=== PATIENT | male | born 1940 | race Caucasian/White ===

== ENCOUNTER → 2021-07-29 14:39 | Outpatient (REF) | payer MEDICARE, SELFPAY ==
--- NOTE | 2021-07-29 15:00 | CA_ITS ---
Transthoracic Echocardiogram Patient (Last, First, Middle): Aden Mtz D Gender: Male Date of : 1940 Age: 80 Procedure Date: 07/29/2021 Procedure Type: Transthoracic Echocardiogram Location: OP Height: 175.26 cm Weight: 108.86 kg BSA: 2.23 m2 Heart Rate: bpm BP: 122 / 60 mmHg Wicker Worker: INO Garduno MD: Mary Jean CNP Slat Grader: Zachery Genao MD Symptoms: AFIB, SOB CHF Study Quality: Technically Difficult ECG Rhythm: Atrial Fibrillation Conclusions: - 1. Normal LV systolic function with normal filling pressures 2. Mild aortic regurgitation 3. Normal RV systolic pressure 4. No gross pericardial effusion Findings Left Ventricle Normal left ventricular size, thickness, and systolic function. The visually estimated ejection fraction is between 55-60%. Diastolic function is indeterminate on the basis of available data. Normal left ventricular filling pressures. Right Ventricle There is normal right ventricular systolic function. There is a pacemaker wire seen in the right ventricle. Atria The left atrium is likely dilated. Interatrial shunt cannot be excluded. The right atrium is normal in size. Aortic Valve The aortic valve structure and function is likely normal. There is no aortic valve stenosis. There is mild aortic valve regurgitation. Mitral Valve Likely normal mitral valve structure and function. There is trace mitral valve regurgitation. There is no mitral valve stenosis. Pulmonic Valve The pulmonic valve was not well visualized. Tricuspid Valve Likely normal tricuspid valve structure and function. There is mild tricuspid valve regurgitation. The right ventricular systolic pressure is normal. The right ventricular systolic pressure is 35 mmHg. Normal right atrial pressure. There is no evidence of pulmonary hypertension. Great Vessels All visible segments of the aorta are normal in size. The pulmonary artery was not well visualized. Venous The inferior vena cava is normal in size and collapses greater than 50% with inspiration. Pericardium/Pleural There is no evidence of pericardial effusion. Prior Study Comparison No prior study available for comparison. Measurements 2D Linear Measurements IVSd: 0.98 0.6-0.9/0.6-1.0 cm LVIDd: 4.73 3.9-5.3/4.2-5.9 cm LVIDd Index: 2.12 2.4-3.2/2.2-3.1 cm/m2 LVIDs: 2.77 2.0-3.6 cm LVPWd: 0.81 0.7-1.1 cm Ao Root: 3.60 2.1-3.5 cm LA Diam: 4.30 2.7-3.8/3.0-4.0 cm LAIDs Index: 1.93 1.5-2.3 cm/m2 LV Mass: 279.74 67-162/88-224 g LV Mass Index: 125.44 43-95/49-115 g/m2 LVOT Diam: 2.20 3.0+(-)1.3 cm Mitral Valve MV Pk E: 0.76 MV Decel Time: 147.00 E'Lateral: 10.00 E'Medial: 8.49 E/E' Med: 9.00 E/E' Lat: 7.60 PHT: 43.00 MVA PHT: 5.12 Decel Twiggs: 5.19 Aortic Valve AoV Pk Gilbert: 1.00 AoV Mn Gilbert: 0.64 AoV VTI: 0.20 AoV Pk Grad: 4.00 Aov Mn Grad: 2.00 RENETTA Cont.VTI: 2.46 LVOT LVOT Pk Gilbert: 0.46 LVOT Mn Gilbert: 0.32 LVOT VTI: 0.13 LVOT Pk Grad: 1.00 LVOT Mn Grad: 0.00 LVOT Diam: 2.20 LVOT Area: 3.80 Diastolic Function MV Pk E: 0.76 E'Medial: 8.49 E/E' Med: 9.00 E' Laterial: 10.00 E/E' Lat: 7.60 Tricuspid Valve TR Pk Gilbert: 2.82 TR Pk Grad: 32.00 RA Press: 3.00 RVSP: 35.00 Great Vessels Aorta Ao Root-2D: 3.60 2.0-3.7 cm Ao Asc: 3.50 2.1-3.4 cm Pulmonary Valve PV Pk Gilbert: 0.68 Peak PV Grad: 2.00 Updated in Other Vendor System with Status of Final Zachery Genao MD electronically signed on 07/30/2021 8:38:04 AM with status of Final
== END ==
LOC: HO.CARD 14:39
PROVIDERS: PCP Nurse Practitioner Primary Care; Visit Provider Nurse Practitioner Primary Care
DX: I48.91 Unspecified atrial fibrillation (principal); R06.02 Shortness of breath; I50.9 Heart failure, unspecified
CPT/HCPCS: 93306

== ENCOUNTER → 2021-11-04 14:08 | Outpatient (BNVA) | payer MEDICARE, SELFPAY | PROVIDERS: PCP Nurse Practitioner Primary Care; Referring Provider Nurse Practitioner Primary Care; Visit Provider Internal Medicine | DX: I48.19 Other persistent atrial fibrillation (principal); I10 Essential (primary) hypertension; Z95.0 Presence of cardiac pacemaker | CPT/HCPCS: 93005; 99202 ==

== ENCOUNTER 2021-11-12 14:45 | Outpatient (REF) | payer MEDICARE, SELFPAY ==
--- NOTE | ~2021-11-12 | US_ITS ---
EXAMINATION: ULTRASOUND EXTREMITY NONVASCULAR CLINICAL INFORMATION: Right flank lump COMPARISON: None. TECHNIQUE: Grayscale and color imaging of the soft tissues over the right flank using a linear transducer. FINDINGS: There is a defect in the posterior fascia and hypoechoic soft tissue suggestive of a hernia. This measures 2 cm. There is an adjacent small simple-appearing fluid collection that measures 1.8 x 0.5 x 2.2 cm. US/US extremity nonvascular IMPRESSION: Small 2 cm right flank hernia and adjacent simple fluid collection measuring 1.8 x 0.5 x 2.2 cm.
== END 2021-11-12 14:46 | disposition home or self-care (01) ==
LOC: HO.US 14:45
PROVIDERS: PCP Nurse Practitioner Primary Care; Visit Provider Nurse Practitioner Primary Care
DX: K46.9 Unspecified abdominal hernia without obstruction or gangrene (principal)
CPT/HCPCS: 76882

== ENCOUNTER → 2021-12-17 10:03 | Outpatient (BNVA) | payer MEDICARE, SELFPAY | PROVIDERS: PCP Nurse Practitioner Primary Care; Referring Provider Nurse Practitioner Primary Care; Visit Provider Surgery | DX: K91.89 Other postprocedural complications and disorders of digestive system (principal); K43.2 Incisional hernia without obstruction or gangrene | CPT/HCPCS: 99202 ==

== ENCOUNTER → 2021-12-28 14:31 | Outpatient (BNVA) | payer MEDICARE, SELFPAY | PROVIDERS: PCP Nurse Practitioner Primary Care; Referring Provider Nurse Practitioner Primary Care; Visit Provider Internal Medicine | DX: Z45.018 Encounter for adjustment and management of other part of cardiac pacemaker (principal); I48.19 Other persistent atrial fibrillation; I10 Essential (primary) hypertension; G47.33 Obstructive sleep apnea (adult) (pediatric); Z99.89 Dependence on other enabling machines and devices | CPT/HCPCS: 99212 ==

== ENCOUNTER 2021-12-30 14:31 | Outpatient (REF) | payer MEDICARE, SELFPAY ==
--- NOTE | ~2021-12-30 | CT_ITS ---
EXAMINATION: CT ABDOMEN AND PELVIS WITHOUT CONTRAST CLINICAL INFORMATION: K91.89: Other postprocedural complications and disorders. COMPARISON: None. TECHNIQUE: Multidetector volumetric imaging was performed from the superior aspect of the liver through the pubic symphysis. Sagittal and coronal reformatted images were obtained on the technologist's workstation. This CT examination was performed using dose optimization techniques as appropriate, variously including the following: *Automated exposure control *Adjustment of mA and/or kV according to patient size (this includes techniques or standardized protocols for targeted exams where dose is matched to indication/reason for exam; i.e. extremities or head) *Use of iterative reconstruction technique DLP: 813 mGy-cm FINDINGS: LUNG BASES: There is minimal compressive atelectasis both lung bases. There is solitary pacer electrode in the right ventricle. Heart size enlarged. LIVER, GALLBLADDER, AND BILIARY TREE: The liver is normal in size, shape, and attenuation. No focal hepatic lesion or biliary ductal dilatation is present. The gallbladder is unremarkable with no evidence of radiopaque gallstones, gallbladder wall thickening, or obvious pericholecystic inflammatory changes. PANCREAS: Unremarkable. SPLEEN: Unremarkable. ADRENAL GLANDS: Unremarkable. KIDNEYS AND URETERS: The kidneys are normal in size, shape, and attenuation. No hydronephrosis, hydroureter, or calculi seen. There is an exophytic 8 mm cyst lower pole right kidney. There is moderate bilateral perinephric stranding. BLADDER: Unremarkable. GASTROINTESTINAL TRACT: There is scattered stool, diverticula and gas seen in the colon without distention. The small bowel loops are normal caliber. Appendix is directed in cephalad direction but normal caliber. No inflammatory changes seen in the mesentery. No free air or free fluid. ABDOMINAL WALL: There is evidence of remote right lower quadrant colostomy scar with soft tissue density likely large scar or an old hematoma/seroma. There is no evidence of hiatal hernia. LYMPH NODES: Normal. VASCULAR: There is a dilated left common iliac vein. PELVIC VISCERA: Unremarkable. OSSEOUS STRUCTURES: There are degenerative disc changes throughout lumbar spine. A grade 1 anterolisthesis L4 over L5. Mild degenerative disc changes seen as well. There is moderate ventral spondylosis lower dorsal spine. Moderate facet arthropathy seen at night L5-S1, left L4-L5 and L3-L4 disc levels. CT/CT abdomen pelvis wo con IMPRESSION: No acute intraabdominal process seen. Remote right lower quadrant colostomy scar with soft tissue density in the right anterior abdominal wall likely old hematoma/seroma. Colonic diverticulosis. Exophytic cyst lower pole right kidney with bilateral perinephric stranding. No radiopaque calculi or hydronephrosis. Fleischner guidelines were followed.
== END 2021-12-30 14:32 | disposition home or self-care (01) ==
LOC: HO.CT 14:31
PROVIDERS: PCP Nurse Practitioner Primary Care; Visit Provider Surgery
DX: K91.89 Other postprocedural complications and disorders of digestive system (principal); K43.2 Incisional hernia without obstruction or gangrene
CPT/HCPCS: 74176

== ENCOUNTER → 2022-01-06 12:51 | Outpatient (BNVA) | payer MEDICARE, SELFPAY | PROVIDERS: PCP Nurse Practitioner Primary Care; Referring Provider Nurse Practitioner Primary Care; Visit Provider Surgery | DX: K91.89 Other postprocedural complications and disorders of digestive system (principal); K43.2 Incisional hernia without obstruction or gangrene | CPT/HCPCS: 99212 ==

== ENCOUNTER 2022-02-23 08:41 | Day surgery (SDC) | payer MEDICARE, SELFPAY ==
--- NOTE | 2022-02-15 | ECG_ITS ---
Test Reason : PREOP Blood Pressure : / mmHG Vent. Rate : 088 BPM Atrial Rate : 000 BPM P-R Int : 000 ms QRS Dur : 074 ms QT Int : 362 ms P-R-T Axes : 000 -01 002 degrees QTc Int : 438 ms Atrial fibrillation Low voltage QRS Abnormal ECG When compared with ECG of 03-FEB-2019 16:57, No significant change was found Referred By: Lizzy Echols Electronically Signed By:GRIS KEEN MD
[2022-02-15 12:16] VITALS: BP 176/88; PULSE 83; RESP 20; O2SAT 97; BMI 34.7
--- NOTE | 2022-02-15 12:30 | P.CONAN_ITS ---
Documented by User: Lizzy Echols NP 02/16/22 13:26 HPI - Anesthesia Eval Consult details Narrative: 81yo M for Hernia Repair Incisional with Mesh Optimized per cardiology Xarelto for afib Scotch x ~3 daily. Discussed periop risks r/t regular ETOH consumption. Encouraged gradual decrease preop. Pt and verbalized understanding. Bilateral hearing aides PMFSH Active Problems Active Problems: All Active Problems (Updated 02/12/22 @ 08:57 by Perlita Fontana RN) RAHEL on CPAP (Acute) Port-site hernia (Acute) Pacemaker (Acute) Essential hypertension (Acute) Persistent atrial fibrillation (Acute) Past Medical History Medical History Elevated cholesterol Essential hypertension Hx of skin cancer, basal cell On anticoagulant therapy On beta kelvin at home RAHEL on CPAP Pacemaker Persistent atrial fibrillation Port-site hernia Prostate cancer Family History Family History Mother HTN (hypertension) Diabetes Father Heart attack Brother Asthma Paternal Grandfather Cancer Family history of problems with anesthesia: No Surgical History Surgical History H/O prostatectomy History of left shoulder replacement History of removal of cyst Hx of colonoscopy Hx of tonsillectomy S/P placement of cardiac pacemaker History of Problems with Anesthesia: No Social History Social History Are you a primary acute care certified nursing assistant to a significant other at home: No Do you presently have visiting nurse or other home services: No Alcohol intake: current Alcohol intake frequency: other Patient Tobacco Use Status: Never used Tobacco Use of substances other than those prescribed or required for medical reasons: No Substance Use Type Other:: Drinks 4-5 Scotch daily Have you been hit, kicked, punched, or otherwise hurt by someone within the past year? If so, by whom?: No Are you DNR?: No Advance Directives: Yes Advance Directives Information Provided: No (Brought copy - Placed on chart) Advance Directives on File: Yes Advance Directives Date on File: 10/01/19 Recently lost weight without trying: No Eating poorly because of decreased appetite: No Nutrition Risks: No Nutritional Risk Poor oral hygiene: No (crowns) Narrative Narrative: Resolving URI. No fever. Negative COVID. No recent CP. Mild [place] with stairs. Meds Allergies Allergy/AdvReac Type Severity Reaction Status Date / Time No Known Allergies Allergy Verified 02/23/22 09:05 [No Known Allergies*] Home Medications Medication Instructions Recorded Confirmed Last Taken Type cholecalciferol (vitamin D3) 25 25 mcg PO DAILY 11/04/21 02/12/22 Unknown History mcg (1,000 unit) capsule losartan 50 mg tablet 50 mg PO DAILY 11/04/21 02/12/22 Unknown History metoprolol succinate 50 mg 50 mg PO DAILY 11/04/21 02/12/22 02/23/22 07:45 History tablet,extended release 24 hr omeprazole 20 mg capsule,delayed 20 mg PO DAILY 11/04/21 02/12/22 02/23/22 07:45 History release rivaroxaban 20 mg tablet (Xarelto) 20 mg PO DAILY 11/04/21 02/12/22 02/20/22 History simvastatin 20 mg tablet 20 mg PO BEDTIME 11/04/21 02/12/22 Unknown History furosemide 20 mg tablet 20 mg PO DAILY 12/28/21 02/12/22 Unknown History Exam Exam Date and Time: February 15, 2022 1230 Height,Weight and Vital Signs: Height 5 ft 9 in Weight 106.594 kg Last Vital Signs Pulse 83 02/15/22 12:16 Resp 20 02/15/22 12:16 BP 176/88 H 02/15/22 12:16 Pulse Ox 97 02/15/22 12:16 Pertinent Lab Results Pertinent Lab Results: Lab Results 02/15/22 02/15/22 Range/Units 12:57 12:57 WBC 5.0 (4.8-10.8) X10*3/uL RBC 4.75 (4.60-5.80) X10*6/uL Hgb 14.4 (14.0-18.0) g/dl Hct 44.4 (42.0-52.0) % MCV 93.5 (80.0-98.0) fL MCH 30.3 (27.0-33.0) pg MCHC 32.4 (31.0-36.0) g/dl RDW 13.2 (11.0-16.0) % Plt Count 238 (160-400) X10*3/uL MPV 9.9 (9.4-12.4) fL Absolute Nucleated RBC 0.000 (0.0-0.012) X10*3/uL Nucleated RBC % (auto) 0.0 (0.0-0.2) /100WBC Sodium 140 (135-145) mmol/L Potassium 4.8 (3.3-5.1) mmol/L Chloride 106 (96-108) mmol/L Carbon Dioxide 25 (22-29) mmol/L Anion Gap 14 (12-20) BUN 15 (9-16) mg/dL Creatinine 0.85 (0.5-1.4) mg/dL Estim Creat Clear Calc 83.3 Estimated GFR > 60 Random Glucose 100 (60-115) mg/dL Calcium 9.1 (8.4-10.2) mg/dL Narrative Narrative: EKG 01/2022 Vent. Rate : 088 BPM ? ? Atrial Rate : 000 BPM ?? P-R Int : 000 ms? QRS Dur : 074 ms ? ? QT Int : 362 ms ? ? ? P-R-T Axes : 000 -01 002 degrees ?? QTc Int : 438 ms ? Atrial fibrillation Low voltage QRS Abnormal ECG When compared with ECG of 03-FEB-2019 16:57, No significant change was found ECHO 07/2021 Conclusions: - 1. Normal LV systolic function with normal filling pressures ? 2. Mild aortic regurgitation ? 3. Normal RV systolic pressure ? 4. No gross pericardial effusion ? Cardiac Device Check 12/2021 Details: Pacemaker interrogated today.? Programmed in VVI mode at 60/Min.? Battery status more than 12 years.? Normal lead parameters.? Ventricular pacing about 11%.? 12 episodes of nonsustained VT appeared to be conducted atrial fibrillation episodes.? Overall, normal pacemaker function. Airway TM Dist: >3cm Neck ROM: Full Loose/Missing/Broken Teeth: No ([place] in left lower) Heart: RRR Lungs: CTAB Assessment and Plan Assessment Anesthesia Assessment: Anesthesia Plan Discussed, Smoking Cess. Discussed and PAT Visit Final Anesthetic Review Family History of Problems with Anesthesia: No History of Problems with Anesthesia: No Documented by User: Shahram Zhong MD 02/23/22 09:30 [facility] Past Medical History Medical History Elevated cholesterol Essential hypertension Hx of skin cancer, basal cell On anticoagulant therapy On beta kelvin at home RAHEL on CPAP Pacemaker Persistent atrial fibrillation Port-site hernia Prostate cancer Family History Family History Mother HTN (hypertension) Diabetes Father Heart attack Brother Asthma Paternal Grandfather Cancer Surgical History Surgical History H/O prostatectomy History of left shoulder replacement History of removal of cyst Hx of colonoscopy Hx of tonsillectomy S/P placement of cardiac pacemaker Social History Social History Are you a primary acute care certified nursing assistant to a significant other at home: No Do you presently have visiting nurse or other home services: No Alcohol intake: current Alcohol intake frequency: other Patient Tobacco Use Status: Never used Tobacco Use of substances other than those prescribed or required for medical reasons: No Substance Use Type Other:: Drinks 4-5 Scotch daily Have you been hit, kicked, punched, or otherwise hurt by someone within the past year? If so, by whom?: No Are you DNR?: No Advance Directives: Yes Advance Directives Information Provided: No (Brought copy - Placed on chart) Advance Directives on File: Yes Advance Directives Date on File: 10/01/19 Recently lost weight without trying: No Eating poorly because of decreased appetite: No Nutrition Risks: No Nutritional Risk Poor oral hygiene: No (crowns) Meds Allergies Allergy/AdvReac Type Severity Reaction Status Date / Time No Known Allergies Allergy Verified 02/23/22 09:05 [No Known Allergies*] Home Medications Medication Instructions Recorded Confirmed Last Taken Type cholecalciferol (vitamin D3) 25 25 mcg PO DAILY 11/04/21 02/12/22 Unknown History mcg (1,000 unit) capsule losartan 50 mg tablet 50 mg PO DAILY 11/04/21 02/12/22 Unknown History metoprolol succinate 50 mg 50 mg PO DAILY 11/04/21 02/12/22 02/23/22 07:45 History tablet,extended release 24 hr omeprazole 20 mg capsule,delayed 20 mg PO DAILY 11/04/21 02/12/22 02/23/22 07:45 History release rivaroxaban 20 mg tablet (Xarelto) 20 mg PO DAILY 11/04/21 02/12/22 02/20/22 History simvastatin 20 mg tablet 20 mg PO BEDTIME 11/04/21 02/12/22 Unknown History furosemide 20 mg tablet 20 mg PO DAILY 12/28/21 02/12/22 Unknown History Exam Airway Mallampati Class: III Assessment and Plan Final Anesthetic Review NPO: Yes ASA Class: III Final Preanesthetic Review: No Changes in Pt Med Stat, Meds/Allgs Chart Reviewed, Consent Obtained/Reviewed and Anes Risks/Benef Reviewed Patient Risk: Intermediate Procedure Risk: Intermediate Assessment/Block/Sedation in SS: Assess/Block/Sedation-SS Anesthetic Plan Anesthetic Plan: GA and Agree w/ Assess. and Plan Disposition: Standard PACU
[2022-02-15 13:40] LABS: Hematocrit 44.4 % (42.0-52.0); Hemoglobin 14.4 g/dl (14.0-18.0); Mean Corpuscular HGB Conc 32.4 g/dl (31.0-36.0); Mean Corpuscular Hemoglobin 30.3 pg (27.0-33.0); Mean Corpuscular Volume 93.5 fL (80.0-98.0); Mean Platelet Volume 9.9 fL (9.4-12.4); Platelet Count 238 X10*3/uL (160-400); Red Blood Count 4.75 X10*6/uL (4.60-5.80); Red Cell Distribution Width 13.2 % (11.0-16.0)
[2022-02-15 14:15] LABS: Anion Gap 14 (12-20); Blood Urea Nitrogen 15 mg/dL (9-16); Calcium 9.1 mg/dL (8.4-10.2); Carbon Dioxide 25 mmol/L (22-29); Chloride 106 mmol/L (96-108); Creatinine Clr Calc Pharmacy 83.3; Estimated Glomerular Filt Rate > 60; Glucose Random 100 mg/dL (60-115); Potassium 4.8 mmol/L (3.3-5.1); Sodium 140 mmol/L (135-145)
[2022-02-23 09:23] VITALS: BP 153/81; PULSE 94; RESP 18; TEMP 36.4; O2SAT 96
--- NOTE | 2022-02-23 09:37 | MHC.SHP ---
Pre-Procedural Eval Section A Date of Service: 02/23/22 Section B Chief Complaint: Port-Site Hernia Details of Present Illness: Has a reducible mass on the right side of the abdomen on a previous port site consistent with incisional hernia Relevant Family History (Specify if Yes): No Relevant Social History: None Present Medications: see Short Stay Collaborative assessment Medical History: Significant History (Atrial fibrillation, pacemaker in place, on anticoagulation, hypertension) History of Previous Operations: Relevant previous surgery/procedure and date(s) (Robotic prostatectomy) Allergies: Allergies Allergy/AdvReac Type Severity Reaction Status Date / Time No Known Allergies Allergy Verified 02/23/22 09:05 [No Known Allergies*] Review of Systems Sugical H&P ROS: Negative: Constitution, Cardiovascular, Respiratory, Neurological, Psychiatric, Hem-Onc, Allergic/Immunologic, Gastrointestinal, Genitourinary, Musculoskeletal, Integumentary, Endocrine and Eyes/Ears/Nose/Throat Exam Surgical H&P Exam: Normal: HEENT, Normal: Lungs, Normal: Extremities, Normal: Skin and Normal: Neurological and Significant Findings: Heart (Regular rhythm) and Significant Findings: Abdomen (Reducible mass, right side of the abdomen on a previous port site) Plan Diagnosis/Plan: Unchanged I have reviewed the history and physical and performed a pertinent physical examination on my patient. No changes have occurred unless specified.
--- NOTE | 2022-02-23 10:52 | P.OP_ITS ---
Operative Note Operative Note Date of Service: 02/23/22 Narrative: Preop diagnosis: Incisional hernia, from port site Postop diagnosis: Incisional hernia, from port site Procedure: Repair of an incisional hernia with small-sized Ventralex mesh, with extensive lysis of adhesions Surgeon: Mateusz Caballero MD faculty i on call medical assistant: JUANA Santana The patient is an 81-year-old male previous undergone robotic prostatectomy and had developed a hernia on port site on the right side laterally. This had been bothering him as this would protrude markedly with activity. He said that despite his age, he remains very active. He wanted to proceed with repair. He understood technique of repair with mesh. He was aware of the risks, benefits, and alternatives. I reviewed his CAT scan with the radiologist and this had shown small defect right side laterally consistent with a port site hernia. The patient was brought to the operating room. He was placed supine under general anesthesia via endotracheal tube. The abdomen is prepped and draped in the usual sterile fashion. A surgical time-out was done. The patient received cefazolin 2 g IV preoperatively. The port site hernias palpable laterally on the right side just above the level umbilicus. I infiltrated this area with lidocaine 1%. I then made an incision transversely Tolliver blade 15. This carried down through the full-thickness skin and subcutaneous fat. Continued to dissect with Metzenbaum scissors through the subcutaneous fat until I was able to visualize a hernia sac. This was sharply dissected off the rest of the subcutaneous layer Metzenbaum scissors. We continued to and this hernia all the way down to the level of the aponeurosis. I continued to dissect the sac off of the rest of the fascial defect using Metzenbaum scissors as well as with fine dissection with the clamp. I was eventually able to define the fascial defect. This was about a 1.5 cm defect. The contents consisted of omental fat. However, a lot of this was tethered to the fascial defect with thin fibrous tissue. I had to do a lot of gentle dissection using the Metzenbaum scissors as well as with the right angle clamp to separate this entire hernia off of the of the defect. This allowed us to eventually apply Dennise clamps on the fascial edge to pull this up. I was able to visualize through the well defect. I could see small bowel loops which did not appear to be tethered at all to the show of the fascia. There was note of good margins surrounding the fascial defect. I therefore positioned a small- sized Ventralex mesh in flattened this to cover the entire defect. I secured the Prolene straps on the mesh to the fascial edge both sides and I trimmed the straps flush on the level of the fascia. I closed the fascia with a [id number] in 1 stitch. I irrigated. I appose the subcutaneous layer with Dexon 3-0 interrupted sutures. Skin closure was achieved with Dexon 4-0 subcuticular running stitch. The incision was infiltrated with Marcaine 0.5% for postop analgesia. Dressings were applied. The procedure was completed The patient tolerated procedure well. There were no complications noted. Initial and final counts of sponges and instruments were correct. Estimated blood loss was about 20 cc. The patient was extubated without difficulty and transferred to the recovery room with stable vital signs.
[2022-02-23 11:04] VITALS: BP 123/71; PULSE 100; RESP 15; TEMP 37.3; O2SAT 99
[2022-02-23 11:10] VITALS: BP 131/63; PULSE 100; RESP 20; O2SAT 97
[2022-02-23 11:15] VITALS: BP 125/69; PULSE 84; RESP 18; O2SAT 98
[2022-02-23 11:20] VITALS: BP 124/61; PULSE 88; RESP 17; O2SAT 98
[2022-02-23 11:34] VITALS: BP 132/69; PULSE 91; RESP 20; TEMP 36.8; O2SAT 95
== END 2022-02-23 12:21 | disposition home or self-care (01) ==
PROVIDERS: Nurse Practitioner; PCP Nurse Practitioner Primary Care; Visit Provider Surgery
PROC: (CPT 49560; principal; 2022-02-23 10:10)
DX: K91.89 Other postprocedural complications and disorders of digestive system (principal); K43.2 Incisional hernia without obstruction or gangrene; K66.0 Peritoneal adhesions (postprocedural) (postinfection); I10 Essential (primary) hypertension; E78.00 Pure hypercholesterolemia, unspecified; I48.19 Other persistent atrial fibrillation; Z79.01 Long term (current) use of anticoagulants; Z95.0 Presence of cardiac pacemaker; G47.33 Obstructive sleep apnea (adult) (pediatric); Z99.89 Dependence on other enabling machines and devices; Z79.899 Other long term (current) drug therapy; Z85.46 Personal history of malignant neoplasm of prostate; Z85.828 Personal history of other malignant neoplasm of skin
CPT/HCPCS: 49560; 49568; 36415; 80048; 85027; 93005; C1781; J0690; J1170; J2405; J3010

== ENCOUNTER → 2022-03-08 11:30 | Outpatient (BNVA) | payer MEDICARE, SELFPAY | PROVIDERS: PCP Nurse Practitioner Primary Care; Referring Provider Nurse Practitioner Primary Care; Visit Provider Surgery | DX: Z48.815 Encounter for surgical aftercare following surgery on the digestive system (principal); Z87.19 Personal history of other diseases of the digestive system | CPT/HCPCS: 99212 ==

== ENCOUNTER → 2022-06-23 12:36 | Outpatient (BNVA) | payer MEDICARE, SELFPAY | PROVIDERS: PCP Nurse Practitioner Primary Care; Referring Provider Nurse Practitioner Primary Care; Visit Provider Internal Medicine | DX: I48.19 Other persistent atrial fibrillation (principal); I10 Essential (primary) hypertension; G47.33 Obstructive sleep apnea (adult) (pediatric); Z95.0 Presence of cardiac pacemaker; Z99.89 Dependence on other enabling machines and devices | CPT/HCPCS: 99212 ==

== ENCOUNTER → 2022-12-27 12:56 | Outpatient (BNVA) | payer MEDICARE, SELFPAY | PROVIDERS: PCP Nurse Practitioner Primary Care; Referring Provider Nurse Practitioner Primary Care; Visit Provider Internal Medicine | DX: Z01.810 Encounter for preprocedural cardiovascular examination (principal); Z45.018 Encounter for adjustment and management of other part of cardiac pacemaker; I48.19 Other persistent atrial fibrillation; I10 Essential (primary) hypertension; G47.33 Obstructive sleep apnea (adult) (pediatric); F10.20 Alcohol dependence, uncomplicated; Z99.89 Dependence on other enabling machines and devices | CPT/HCPCS: 93005; 99212 ==

== ENCOUNTER → 2023-08-07 23:59 | Outpatient (BNV) | payer MEDICARE, SELFPAY ==
--- NOTE | 2023-08-14 10:28 | MHC.OFFVIS ---
Intake Intake Visit Reasons: Remote device check- [employer] Allergies No Known Allergies [No Known Allergies*] Allergy (Verified 12/27/22 13:36) PFSH Medical History Elevated cholesterol Essential hypertension Hx of skin cancer, basal cell On anticoagulant therapy On beta kelvin at home RAHEL on CPAP Pacemaker Persistent atrial fibrillation Port-site hernia Prostate cancer Surgical History H/O prostatectomy History of incisional hernia repair History of left shoulder replacement History of removal of cyst Hx of colonoscopy Hx of tonsillectomy S/P placement of cardiac pacemaker Family History Mother HTN (hypertension) Diabetes Father Heart attack Brother Asthma Paternal Grandfather Cancer Social History Are you a primary child care lead teacher to a significant other at home: No Do you presently have visiting nurse or other home services: No Alcohol intake: current Alcohol intake frequency: other Patient Tobacco Use Status: Never used Tobacco Advance Directives Date on File: 10/01/19 Office Procedures Cardiac Device Check Cardiac Device Check Details: Date of service- 08/07/2023 ; Battery life 11 years; normal lead parameters; CHIEF RELAY TESTER 11.5%; rare/transient rapid rates from atrial fibrillation. Otherwise, no significant arrhythmias. Overall normal device function. [id number] Cardiac Device Interrogation, pacemaker Procedure code (CPT) selection complete Assessment & Plan Assessment & Plan (1) Persistent atrial fibrillation: Code(s): I48.19 - Other persistent atrial fibrillation Coding Level of Care Code Procedure Only Diagnoses Persistent atrial fibrillation I48.19 CPT Codes Cardiac Device Check - Cardiac Device 12: [id number] Cardiac Device Interrogation, pacemaker ([id number])
== END ==
PROVIDERS: PCP Nurse Practitioner Primary Care; Visit Provider Internal Medicine
DX: I48.19 Other persistent atrial fibrillation (principal); Z95.0 Presence of cardiac pacemaker
CPT/HCPCS: 93294

== ENCOUNTER → 2023-11-06 23:59 | Outpatient (BNV) | payer MEDICARE, SELFPAY ==
--- NOTE | 2023-11-14 13:11 | MHC.OFFVIS ---
Intake Intake Visit Reasons: Remote Device Check- [employer] Allergies No Known Allergies [No Known Allergies*] Allergy (Verified 12/27/22 13:36) PFSH Medical History Elevated cholesterol Essential hypertension Hx of skin cancer, basal cell On anticoagulant therapy On beta kelvin at home RAHEL on CPAP Pacemaker Persistent atrial fibrillation Port-site hernia Prostate cancer Surgical History H/O prostatectomy History of incisional hernia repair History of left shoulder replacement History of removal of cyst Hx of colonoscopy Hx of tonsillectomy S/P placement of cardiac pacemaker Family History Mother HTN (hypertension) Diabetes Father Heart attack Brother Asthma Paternal Grandfather Cancer Social History Are you a primary customer care assistant to a significant other at home: No Do you presently have visiting nurse or other home services: No Alcohol intake: current Alcohol intake frequency: other Patient Tobacco Use Status: Never used Tobacco Advance Directives Date on File: 10/01/19 Office Procedures Cardiac Device Check Cardiac Device Check Details: Date of service- 11/06/2023 ; Battery life >10 years; normal lead parameters; SHIPPING TECHNICIAN 11.5%; VT episodes in the monitoring zone are likely atrial fibrillation episodes. Overall normal device function. [id number] Cardiac Device Interrogation, pacemaker Procedure code (CPT) selection complete Assessment & Plan Assessment & Plan (1) Persistent atrial fibrillation: Code(s): I48.19 - Other persistent atrial fibrillation Plan x Coding Level of Care Code Procedure Only Diagnoses Persistent atrial fibrillation I48.19 CPT Codes Cardiac Device Check - Cardiac Device 12: [id number] Cardiac Device Interrogation, pacemaker ([id number])
== END ==
PROVIDERS: PCP Nurse Practitioner Primary Care; Visit Provider Internal Medicine
DX: I48.19 Other persistent atrial fibrillation (principal); Z95.0 Presence of cardiac pacemaker
CPT/HCPCS: 93294

== ENCOUNTER 2023-12-26 11:51 | Outpatient (AMB) | payer MEDICARE, SELFPAY ==
[2023-12-26 12:36] VITALS: BP 110/62; PULSE 68; BMI 33.5
--- NOTE | 2023-12-26 12:36 | MHC.OFFVIS ---
Intake Vital Signs 12/26/23 12:36 Height 5 ft 9 in Weight 227 lb 1.218 oz BMI 33.5 BP 110/62 Blood Pressure Location Lt brachial Position Sitting Pulse 68 Intake Visit Reasons: 1 YR FOLLOW UP WITH [employer] Intake Note: 1 year follow up w/ EKG Communication Arts Lecturer Required: No Accompanied by: Spouse Allergies No Known Allergies [No Known Allergies*] Allergy (Verified 12/26/23 12:51) Medication List - Last Reconciled 12/26/23 by Eb Gutierres MD cholecalciferol (vitamin D3) 25 mcg PO DAILY furosemide 20 mg PO DAILY losartan 50 mg PO DAILY metoprolol succinate ER 50 mg PO DAILY omeprazole 20 mg PO DAILY rivaroxaban (Xarelto) 20 mg PO DAILY simvastatin 20 mg PO BEDTIME HPI HPI Comments History of Present Illness Details Aden returns for follow-up. Switched from [facility] due to intermediate. He has a history of persistent atrial fibrillation. Used to be paroxysmal in the past but apparently has been persistent for quite some time now. He was admitted with a syncopal episode in 2019. At that time, his implantable loop recorder had shown a 5.2 second pause. Following this, he underwent permanent pacemaker placement. In the last year or so, he is doing fine. States he is not had any alcohol recently. 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 No cardiac symptoms. [facility] Medical History Elevated cholesterol Essential hypertension Hx of skin cancer, basal cell On anticoagulant therapy On beta kelvin at home RAHEL on CPAP Pacemaker Persistent atrial fibrillation Port-site hernia Prostate cancer Surgical History H/O prostatectomy History of incisional hernia repair History of left shoulder replacement History of removal of cyst Hx of colonoscopy Hx of tonsillectomy S/P placement of cardiac pacemaker Family History Mother HTN (hypertension) Diabetes Father Heart attack Brother Asthma Paternal Grandfather Cancer Social History Are you a primary youth care specialist to a significant other at home: No Do you presently have visiting nurse or other home services: No Alcohol intake: current Alcohol intake frequency: other Patient Tobacco Use Status: Never used Tobacco Advance Directives Date on File: 10/01/19 Review of Systems Const Denies weakness ENT Denies dizziness Card Denies chest pain, Denies chest pain with activity, Denies syncope, Denies rapid heart rate, Denies pedal edema, Denies edema, Denies leg edema, Denies lightheadedness, Denies palpitations, Denies dyspnea, Denies dyspnea on exertion and Denies orthopnea Resp Denies cough, Denies dyspnea and Denies dyspnea on exertion GI Denies hematochezia and Denies change in stool character Musc Denies abnormal gait, Denies muscle cramps, Denies muscle weakness, Denies numbness, Denies radiating pain into limb and Denies tingling Neuro Denies abnormal gait, Denies dizziness, Denies syncope, Denies numbness, Denies tingling and Denies weakness Endo Denies palpitations Physical Exam Vital Signs: Last Vital Signs Pulse 68 12/26/23 12:36 BP 110/62 12/26/23 12:36 BMI result Body Mass Index 33.5 Const General: comfortable and no acute distress Orientation/consciousness: patient oriented x3 HEENT Other: Unremarkable Head: Yes normal to inspection Neck Neck: Yes normal visual inspection Chest Chest palpation & inspection: normal inspection of the chest Resp Auscultation: clear to auscultation bilaterally Cardio Palpation: normal PMI Heart sounds: S1 normal heart sound present, S2 normal heart sound present, no gallops, no murmurs and no rubs GI Palpation (GI): Soft to palpation Back/Spine/Pelvis Other: unremarkable Skin General skin exam: no rashes or lesions noted Neuro General: patient oriented x3 Extrem General: Yes normal to inspection Psych Mental Status: mental status grossly normal Office Procedures Cardiac Device Check Cardiac Device Check Details: Single-chamber device, programmed VVI. Battery status more than 10 years. Normal lead parameters. Total ventricular pacing 13.7%. Overall, normal device function. [id number] Cardiac Device Check, leadless/single lead pacemaker Procedure code (CPT) selection complete EKG Details: EKG with atrial fibrillation at a rate of 68/Min; PVCs versus aberrant conduction. Low voltage QRS complexes. [id number], Complete Assessment & Plan Assessment & Plan (1) Persistent atrial fibrillation: Code(s): I48.19 - Other persistent atrial fibrillation Plan: Continue metoprolol and Xarelto. Will request PCP labs. (2) Essential hypertension: Code(s): I10 - Essential (primary) hypertension Plan: Continue losartan. Normal blood pressure today. (3) Pacemaker: Code(s): Z95.0 - Presence of cardiac pacemaker Plan: Normally functioning on checking today. Can be followed remotely. (4) RAHEL on CPAP: Code(s): G47.33 - Obstructive sleep apnea (adult) (pediatric); Z99.89 - Dependence on other enabling machines and devices Plan: Continue CPAP. (5) Alcohol use disorder: Code(s): F10.90 - Alcohol use, unspecified, uncomplicated Plan: He was drinking a lot of alcohol but he states he stopped about 3 months ago. Hopefully, he can stay this way. Coding Level of Care Code Est Pt Level 4 (11661) Diagnoses Persistent atrial fibrillation I48.19 Essential hypertension I10 Pacemaker Z95.0 RAHEL on CPAP G47.33; Z99.89 Alcohol use disorder F10.90 CPT Codes Cardiac Device Check - Cardiac Device 1: 93053-BF Cardiac Device Check, leadless/single lead pacemaker ([id number]) EKG - CPT: 85314-Vhlmejwsoczohykqe, Complete ([id number])
== END 2023-12-26 13:13 | disposition home or self-care (01) ==
PROVIDERS: PCP Nurse Practitioner Primary Care; Visit Provider Internal Medicine
DX: I48.19 Other persistent atrial fibrillation (principal); I10 Essential (primary) hypertension; Z95.0 Presence of cardiac pacemaker; G47.33 Obstructive sleep apnea (adult) (pediatric); Z99.89 Dependence on other enabling machines and devices
CPT/HCPCS: 93279; 99214

== ENCOUNTER → 2023-12-26 11:51 | Outpatient (BNVA) | payer MEDICARE, SELFPAY | PROVIDERS: PCP Nurse Practitioner Primary Care; Visit Provider Internal Medicine | DX: Z45.018 Encounter for adjustment and management of other part of cardiac pacemaker (principal); I48.19 Other persistent atrial fibrillation; I10 Essential (primary) hypertension; F10.90 Alcohol use, unspecified, uncomplicated; G47.33 Obstructive sleep apnea (adult) (pediatric); Z99.89 Dependence on other enabling machines and devices | CPT/HCPCS: 93005; 99212 ==

== ENCOUNTER 2023-12-30 07:52 | Outpatient (REF) | payer MEDICARE, SELFPAY ==
[2023-12-30 09:21] LABS: Anion Gap 13 (12-20); Blood Urea Nitrogen 15 mg/dL (9-16); Calcium 9.7 mg/dL (8.4-10.2); Carbon Dioxide 29 mmol/L (22-29); Chloride 104 mmol/L (96-108); Estimated Glomerular Filt Rate > 60; Glucose Random 108 mg/dL (60-115); Sodium 141 mmol/L (135-145)
== END 2023-12-30 07:53 | disposition home or self-care (01) ==
LOC: HO.LAB 07:52
PROVIDERS: PCP Nurse Practitioner Primary Care; Visit Provider Internal Medicine
DX: I48.19 Other persistent atrial fibrillation (principal); K91.89 Other postprocedural complications and disorders of digestive system; K43.2 Incisional hernia without obstruction or gangrene
CPT/HCPCS: 36415; 80048

== ENCOUNTER → 2024-02-04 23:59 | Outpatient (BNV) | payer MEDICARE, SELFPAY ==
--- NOTE | 2024-02-07 19:28 | A.OFFVIS_ITS ---
Intake Intake Visit Reasons: Remote Device Check- [employer] Allergies No Known Allergies [No Known Allergies*] Allergy (Verified 12/26/23 12:51) PFSH Medical History Elevated cholesterol Essential hypertension Hx of skin cancer, basal cell On anticoagulant therapy On beta kelvin at home RAHEL on CPAP Pacemaker Persistent atrial fibrillation Port-site hernia Prostate cancer Surgical History H/O prostatectomy History of incisional hernia repair History of left shoulder replacement History of removal of cyst Hx of colonoscopy Hx of tonsillectomy S/P placement of cardiac pacemaker Family History Mother HTN (hypertension) Diabetes Father Heart attack Brother Asthma Paternal Grandfather Cancer Social History Are you a primary point of care specialist to a significant other at home: No Do you presently have visiting nurse or other home services: No Alcohol intake: current Alcohol intake frequency: other Patient Tobacco Use Status: Never used Tobacco Advance Directives Date on File: 10/01/19 Office Procedures Cardiac Device Check Cardiac Device Check Details: Date of service- 02/04/2024 ; Battery life >10 years; normal lead parameters; THORACIC MEDICINE PHYSICIAN 26%; no significant arrhythmias. Overall normal device function. [id number] Cardiac Device Interrogation, pacemaker Procedure code (CPT) selection complete Assessment & Plan Assessment & Plan (1) Persistent atrial fibrillation: Code(s): I48.19 - Other persistent atrial fibrillation Plan x Coding Level of Care Code Procedure Only Diagnoses Persistent atrial fibrillation I48.19 CPT Codes Cardiac Device Check - Cardiac Device 12: 48279-Griqhc Cardiac Device Interrogation, pacemaker ([id number])
== END ==
PROVIDERS: PCP Nurse Practitioner Primary Care; Visit Provider Internal Medicine
DX: I48.19 Other persistent atrial fibrillation (principal); Z95.0 Presence of cardiac pacemaker
CPT/HCPCS: 93294

== ENCOUNTER → 2024-05-05 23:59 | Outpatient (BNV) | payer MEDICARE, SELFPAY ==
--- NOTE | 2024-05-10 12:18 | MHC.OFFVIS ---
Intake Visit Reasons: Remote Device Check- Med[employer] Allergies No Known Allergies [No Known Allergies*] Allergy (Verified 12/26/23 12:51) PFSH Medical History Elevated cholesterol Essential hypertension Hx of skin cancer, basal cell On anticoagulant therapy On beta kelvin at home RAHEL on CPAP Pacemaker Persistent atrial fibrillation Port-site hernia Prostate cancer Surgical History H/O prostatectomy History of incisional hernia repair History of left shoulder replacement History of removal of cyst Hx of colonoscopy Hx of tonsillectomy S/P placement of cardiac pacemaker Family History Mother HTN (hypertension) Diabetes Father Heart attack Brother Asthma Paternal Grandfather Cancer Social History Are you a primary home care specialist to a significant other at home: No Do you presently have visiting nurse or other home services: No Alcohol intake: current Alcohol intake frequency: other Patient Tobacco Use Status: Never used Tobacco Advance Directives Date on File: 10/01/19 Office Procedures Cardiac Device Check Cardiac Device Check Details: Date of service- 05/05/2024 ; Battery life >10 years; normal lead parameters; BRAZER FURNACE 30%; no significant arrhythmias. Overall normal device function. [id number] Cardiac Device Interrogation, pacemaker Procedure code (CPT) selection complete Assessment & Plan Assessment & Plan (1) Persistent atrial fibrillation: Code(s): I48.19 - Other persistent atrial fibrillation Category: Medical Plan x Coding Level of Care Code Procedure Only Diagnoses Persistent atrial fibrillation I48.19 CPT Codes Cardiac Device Check - Cardiac Device 12: [id number] Cardiac Device Interrogation, pacemaker ([id number])
== END ==
PROVIDERS: PCP Nurse Practitioner Primary Care; Visit Provider Internal Medicine
DX: I48.19 Other persistent atrial fibrillation (principal); Z95.0 Presence of cardiac pacemaker
CPT/HCPCS: 93294

== ENCOUNTER → 2024-08-04 23:59 | Outpatient (BNV) | payer MEDICARE, SELFPAY ==
--- NOTE | 2024-08-12 14:11 | A.OFFVIS_ITS ---
Intake Visit Reasons: Remote device check- Med[employer] Allergies No Known Allergies [No Known Allergies*] Allergy (Verified 12/26/23 12:51) PFSH Medical History Elevated cholesterol Essential hypertension Hx of skin cancer, basal cell On anticoagulant therapy On beta kelvin at home RAHEL on CPAP Pacemaker Persistent atrial fibrillation Port-site hernia Prostate cancer Surgical History H/O prostatectomy History of incisional hernia repair History of left shoulder replacement History of removal of cyst Hx of colonoscopy Hx of tonsillectomy S/P placement of cardiac pacemaker Family History Mother HTN (hypertension) Diabetes Father Heart attack Brother Asthma Paternal Grandfather Cancer Social History Are you a primary medicare interviewer to a significant other at home: No Do you presently have visiting nurse or other home services: No Alcohol intake: current Alcohol intake frequency: other Patient Tobacco Use Status: Never used Tobacco Advance Directives Date on File: 10/01/19 Office Procedures Cardiac Device Check Cardiac Device Check Details: Date of service- 08/04/2024 ; Battery life >10 years; normal lead parameters; 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 Overall normal device function. [id number] Cardiac Device Interrogation, pacemaker Procedure code (CPT) selection complete Assessment & Plan Assessment & Plan (1) Pacemaker: Code(s): Z95.0 - Presence of cardiac pacemaker Category: Medical (2) Persistent atrial fibrillation: Code(s): I48.19 - Other persistent atrial fibrillation Category: Medical Plan x Coding Level of Care Code Procedure Only Diagnoses Pacemaker Z95.0 Persistent atrial fibrillation I48.19 CPT Codes Cardiac Device Check - Cardiac Device 12: [id number] Cardiac Device Interr ogation, pacemaker ([id number])
== END ==
PROVIDERS: PCP Nurse Practitioner Primary Care; Visit Provider Internal Medicine
DX: I48.19 Other persistent atrial fibrillation (principal); Z95.0 Presence of cardiac pacemaker
CPT/HCPCS: 93294

== ENCOUNTER → 2024-11-03 23:59 | Outpatient (BNV) | payer MEDICARE, SELFPAY ==
--- NOTE | 2024-11-17 11:45 | A.OFFVIS_ITS ---
Intake Visit Reasons: Remote device check- Med[employer] Allergies No Known Allergies [No Known Allergies*] Allergy (Verified 12/26/23 12:51) PFSH Medical History Elevated cholesterol Essential hypertension Hx of skin cancer, basal cell On anticoagulant therapy On beta kelvin at home RAHEL on CPAP Pacemaker Persistent atrial fibrillation Port-site hernia Prostate cancer Surgical History H/O prostatectomy History of incisional hernia repair History of left shoulder replacement History of removal of cyst Hx of colonoscopy Hx of tonsillectomy S/P placement of cardiac pacemaker Family History Mother HTN (hypertension) Diabetes Father Heart attack Brother Asthma Paternal Grandfather Cancer Social History Are you a primary acute care nurse practitioner to a significant other at home: No Do you presently have visiting nurse or other home services: No Alcohol intake: current Alcohol intake frequency: other Patient Tobacco Use Status: Never used Tobacco Advance Directives Date on File: 10/01/19 Office Procedures Cardiac Device Check Cardiac Device Check Details: Date of service- 11/03/2024 ; Battery life 10 years; normal lead parameters; 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 Overall normal device function. [id number]-[id number] Cardiac Device Interrogation, pacemaker Procedure code (CPT) selection complete Assessment & Plan Assessment & Plan (1) Pacemaker: Code(s): Z95.0 - Presence of cardiac pacemaker Category: Medical (2) Persistent atrial fibrillation: Code(s): I48.19 - Other persistent atrial fibrillation Category: Medical Plan x Coding Level of Care Code Procedure Only Diagnoses Pacemaker Z95.0 Persistent atrial fibrillation I48.19 CPT Codes Cardiac Device Check - Cardiac Device 12: 47059-[id number] Cardiac Device Interro gation, pacemaker ([id number])
== END ==
PROVIDERS: PCP Nurse Practitioner Primary Care; Visit Provider Internal Medicine
DX: I48.19 Other persistent atrial fibrillation (principal); Z95.0 Presence of cardiac pacemaker
CPT/HCPCS: 93294

== ENCOUNTER 2024-12-24 12:00 | Outpatient (AMB) | payer MEDICARE, SELFPAY ==
[2024-12-24 12:26] VITALS: BP 122/68; PULSE 63; BMI 33.9
--- NOTE | 2024-12-24 12:26 | MHC.OFFVIS ---
Vital Signs 12/24/24 12:26 Height 5 ft 9 in Weight 229 lb 4.492 oz BMI 33.9 BP 122/68 Blood Pressure Location Lt brachial Position Sitting Pulse 63 Pulse Source Monitor Intake Visit Reasons: 1 yr w/ medtronic ck Allergies No Known Allergies [No Known Allergies*] Allergy (Verified 12/26/23 12:51) Medication List - Last Reconciled 12/24/24 by Eb Gutierres MD cholecalciferol (vitamin D3) 25 mcg PO DAILY furosemide 20 mg PO DAILY losartan 50 mg PO DAILY metoprolol succinate ER 50 mg PO DAILY omeprazole 20 mg PO DAILY rivaroxaban (Xarelto) 20 mg PO DAILY simvastatin 20 mg PO BEDTIME HPI Comments Details: Aden returns for follow-up. He has a history of persistent atrial fibrillation. He was admitted with a syncopal episode in 2019. At that time, his implantable loop recorder had shown a 5.2 second pause. Following this, he underwent permanent pacemaker placement. In the last year, no new concerns. He is doing good. No cardiac issues. Still works as a network security engineer. [facility] Medical History On anticoagulant therapy On beta kelvin at home Hx of skin cancer, basal cell Elevated cholesterol Prostate cancer RAHEL on CPAP Port-site hernia Essential hypertension Persistent atrial fibrillation Pacemaker Surgical History History of incisional hernia repair S/P placement of cardiac pacemaker Hx of colonoscopy History of removal of cyst Hx of tonsillectomy H/O prostatectomy History of left shoulder replacement Family History Mother HTN (hypertension) Diabetes Father Heart attack Brother Asthma Paternal Grandfather Cancer Social History Are you a primary rn progressive care to a significant other at home: No Do you presently have visiting nurse or other home services: No Alcohol intake: current Alcohol intake frequency: other Patient Tobacco Use Status: Never used Tobacco Advance Directives Date on File: 10/01/19 Review of Systems Const Denies weakness ENT Denies dizziness Card Denies chest pain, Denies chest pain with activity, Denies syncope, Denies rapid heart rate, Denies pedal edema, Denies edema, Denies leg edema, Denies lightheadedness, Denies palpitations, Denies dyspnea, Denies dyspnea on exertion and Denies orthopnea Resp Denies cough, Denies dyspnea and Denies dyspnea on exertion GI Denies hematochezia and Denies change in stool character Musc Denies abnormal gait, Denies muscle cramps, Denies muscle weakness, Denies numbness, Denies radiating pain into limb and Denies tingling Neuro Denies abnormal gait, Denies dizziness, Denies syncope, Denies numbness, Denies tingling and Denies weakness Endo Denies palpitations Physical Exam Vital Signs: Last Vital Signs Pulse 63 12/24/24 12:26 BP 122/68 12/24/24 12:26 BMI result Body Mass Index 33.9 Const General: comfortable and no acute distress Orientation/consciousness: patient oriented x3 HEENT Other: Unremarkable Head: Yes normal to inspection Neck Neck: Yes normal visual inspection Chest Chest palpation & inspection: normal inspection of the chest Resp Auscultation: clear to auscultation bilaterally Cardio Palpation: normal PMI Heart sounds: S1 normal heart sound present, S2 normal heart sound present, no gallops, no murmurs and no rubs GI Palpation (GI): Soft to palpation Back/Spine/Pelvis Other: unremarkable Skin General skin exam: no rashes or lesions noted Neuro General: patient oriented x3 Extrem General: Yes normal to inspection Psych Mental Status: mental status grossly normal Office Procedures Cardiac Device Check Cardiac Device Check Details: Pacemaker interrogated today. Single-chamber device, programmed VVI. Battery status 9.9 years. Normal lead parameters. Ventricular pacing 38%. Overall, normal device function. [id number] Cardiac Device Check, leadless/single lead pacemaker Procedure code (CPT) selection complete EKG Details: EKG with atrial fibrillation with intermittent ventricular paced beats; rate 63/Min. [id number], Complete Assessment & Plan Assessment & Plan (1) Persistent atrial fibrillation: Code(s): I48.19 - Other persistent atrial fibrillation Category: Medical Plan: Continue metoprolol and Xarelto. They are due for labs next month through PCP and advised him to send us a copy. (2) Essential hypertension: Code(s): I10 - Essential (primary) hypertension Category: Medical Plan: Remains on losartan. (3) Pacemaker: Code(s): Z95.0 - Presence of cardiac pacemaker Category: Medical Plan: Normally functioning on checking today. Can be followed remotely. (4) RAHEL on CPAP: Code(s): G47.33 - Obstructive sleep apnea (adult) (pediatric); Z99.89 - Dependence on other enabling machines and devices Category: Medical Plan: Continue CPAP. (5) Alcohol use disorder: Code(s): F10.90 - Alcohol use, unspecified, uncomplicated Category: Medical Plan: He states he has not had alcohol in more than a year. Hopefully, stays this way. Plan Follow-up in 1 year. In the interim, he will call with concerns. Coding Level of Care Code Est Pt Level 4 (86082) Diagnoses Persistent atrial fibrillation I48.19 Essential hypertension I10 Pacemaker Z95.0 RAHEL on CPAP G47.33; Z99.89 Alcohol use disorder F10.90 CPT Codes Cardiac Device Check - Cardiac Device 1: 71640-QJ Cardiac Device Check, leadless/single lead pacemaker ([id number]) EKG - CPT: 61706-Ofllrlprkangerfuw, Complete ([id number])
== END 2024-12-24 12:45 | disposition home or self-care (01) ==
PROVIDERS: PCP Nurse Practitioner Primary Care; Visit Provider Internal Medicine
DX: I48.19 Other persistent atrial fibrillation (principal); I10 Essential (primary) hypertension; Z95.0 Presence of cardiac pacemaker; G47.33 Obstructive sleep apnea (adult) (pediatric); Z99.89 Dependence on other enabling machines and devices; F10.90 Alcohol use, unspecified, uncomplicated
CPT/HCPCS: 93010; 93279; 99214

== ENCOUNTER → 2024-12-24 12:00 | Outpatient (BNVA) | payer MEDICARE, SELFPAY | PROVIDERS: PCP Nurse Practitioner Primary Care; Visit Provider Internal Medicine | DX: Z45.018 Encounter for adjustment and management of other part of cardiac pacemaker (principal); I48.19 Other persistent atrial fibrillation; I10 Essential (primary) hypertension; G47.33 Obstructive sleep apnea (adult) (pediatric); F10.90 Alcohol use, unspecified, uncomplicated; Z99.89 Dependence on other enabling machines and devices | CPT/HCPCS: 93005; 99212 ==

== ENCOUNTER 2025-01-17 07:54 | Outpatient (REF) | payer MEDICARE, SELFPAY ==
[2025-01-17 08:50] LABS: Estimated Average Glucose 126 mg/dL
[2025-01-17 09:28] LABS: Alanine Aminotransferase 14 U/L (0-40); Anion Gap 9 (12-20); Aspartate Amino Transferase 25 U/L (5-37); Blood Urea Nitrogen 18 mg/dL (9-16); Calcium 9.2 mg/dL (8.4-10.2); Carbon Dioxide 29 mmol/L (22-29); Chloride 105 mmol/L (96-108); Cholesterol 144 mg/dL (<200); Estimated Glomerular Filt Rate > 60; Glucose Random 114 mg/dL (60-115); HDL Cholesterol 41 mg/dL (>40); LDL Cholesterol Calculated 91 mg/dL (<100); Potassium 4.3 mmol/L (3.3-5.1); Sodium 139 mmol/L (135-145); Triglycerides 64 mg/dL (<150)
[2025-01-17 09:34] LABS: Vitamin D 25-OH Total 34.6 ng/mL (>30)
== END 2025-01-17 07:55 | disposition home or self-care (01) ==
LOC: HO.LAB 07:54
PROVIDERS: PCP Nurse Practitioner Primary Care; Visit Provider Nurse Practitioner Primary Care
DX: Z00.00 Encounter for general adult medical examination without abnormal findings (principal); E78.5 Hyperlipidemia, unspecified; I10 Essential (primary) hypertension; R73.01 Impaired fasting glucose
CPT/HCPCS: 36415; 80048; 80061; 82306; 83036; 84450; 84460

== ENCOUNTER → 2025-02-02 23:59 | Outpatient (BNV) | payer MEDICARE, SELFPAY ==
--- NOTE | 2025-02-13 21:30 | MHC.OFFVIS ---
Intake Visit Reasons: Remote device check- [employer]tr[employer] Allergies No Known Allergies [No Known Allergies*] Allergy (Verified 12/26/23 12:51) PFSH Medical History On anticoagulant therapy On beta kelvin at home Hx of skin cancer, basal cell Elevated cholesterol Prostate cancer RAHEL on CPAP Port-site hernia Essential hypertension Persistent atrial fibrillation Pacemaker Surgical History History of incisional hernia repair S/P placement of cardiac pacemaker Hx of colonoscopy History of removal of cyst Hx of tonsillectomy H/O prostatectomy History of left shoulder replacement Family History Mother HTN (hypertension) Diabetes Father Heart attack Brother Asthma Paternal Grandfather Cancer Social History Are you a primary care director to a significant other at home: No Do you presently have visiting nurse or other home services: No Alcohol intake: current Alcohol intake frequency: other Patient Tobacco Use Status: Never used Tobacco Advance Directives Date on File: 10/01/19 Office Procedures Cardiac Device Check Cardiac Device Check Details: Date of service- 02/02/2025 ; Battery life >9 years; normal lead parameters; 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 Overall normal device function. [id number] Cardiac Device Interrogation, pacemaker Procedure code (CPT) selection complete Assessment & Plan Assessment & Plan (1) Pacemaker: Code(s): Z95.0 - Presence of cardiac pacemaker Category: Medical (2) Persistent atrial fibrillation: Code(s): I48.19 - Other persistent atrial fibrillation Category: Medical Plan x Coding Level of Care Code Procedure Only Diagnoses Pacemaker Z95.0 Persistent atrial fibrillation I48.19 CPT Codes Cardiac Device Check - Cardiac Device 12: 87801-Gcjfpt Cardiac Device Interrogation, pacemaker ([id number])
== END ==
PROVIDERS: PCP Nurse Practitioner Primary Care; Visit Provider Internal Medicine
DX: I48.19 Other persistent atrial fibrillation (principal); Z95.0 Presence of cardiac pacemaker
CPT/HCPCS: 93294

== ENCOUNTER 2025-03-11 11:50 | Outpatient (REF) | payer MEDICARE, SELFPAY ==
[2025-03-11 13:14] LABS: MANUAL DIFF FLAG NO
[2025-03-11 13:28] LABS: Basophils Absolute Auto 0.1 X10*3/uL (0.0-0.2); Basophils Percent Auto 1.5 % (0-2); Eosinophils Absolute Auto 0.3 X10*3/uL (0.0-0.4); Eosinophils Percent Auto 3.5 % (0-4); Hematocrit 40.3 % (42.0-52.0); Hemoglobin 12.6 g/dl (14.0-18.0); Imm Gran Abs Auto 0.03 X10*3/uL (0.00-0.03); Imm Gran Pct Auto 0.4 % (0.0-0.4); Lymphocytes Percent Auto 26.6 % (20-40); Mean Corpuscular HGB Conc 31.3 g/dl (31.0-36.0); Mean Corpuscular Hemoglobin 26.3 pg (27.0-33.0); Mean Corpuscular Volume 84.1 fL (80.0-98.0); Mean Platelet Volume 9.8 fL (9.4-12.4); Monocytes Absolute Auto 0.7 X10*3/uL (0.1-1.2); Monocytes Percent Auto 9.8 % (2-11); Neutrophils Absolute Auto 4.3 x10*3/uL (2.0-8.3); Neutrophils Percent Auto 58.2 % (45-73); Platelet Count 257 X10*3/uL (160-400); Red Blood Count 4.79 X10*6/uL (4.60-5.80); Red Cell Distribution Width 13.8 % (11.0-16.0); White Blood Count 7.4 X10*3/uL (4.8-10.8)
== END 2025-03-11 11:51 | disposition home or self-care (01) ==
LOC: HO.10HDL 11:50
PROVIDERS: Visit Provider Internal Medicine Gastroenterology
DX: K62.5 Hemorrhage of anus and rectum (principal); R13.10 Dysphagia, unspecified
CPT/HCPCS: 36415; 85025

== ENCOUNTER 2025-03-25 15:14 | Outpatient (REF) | payer MEDICARE, SELFPAY ==
--- OUTSIDE RECORDS SUMMARY | 2025-03-25 15:19 | XMS_ITS ---
Author Organization [facility] Address [address] [place] [phone] Care Team Providers Care Cattle Examiner Name Role Phone Mary Jean N.P Primary Care Provider Un available Dylon Gomez Jr REASON FOR VISIT please review Encounters Encounter Location Date Provider Diagnosis [facility] [address] [place] [phone] 02/14/2025 Dylon Gomez Jr Plan Of Treatment No Information Progress Notes * TIMMY BUTLER DDOB: [birth year] (84 yo M)Acc No.[id number]:02/14/2025 Patient:?TIMMY BUTLER D :1940???Age:84 Y???Sex:Male Address:[address] [place] [id number] * true * Date:? Generated for Printi bladimir/Shaila/eTransmitting on:?03/25/2025 03:19 PM EDT
--- OUTSIDE RECORDS SUMMARY | 2025-03-25 15:19 | XMS_ITS ---
Author Organization [facility] Address [address] [place] [phone] Care Team Providers Care Depilatory Painter Name Role Phone Mary Jean N.P Primary Care Provider Un available Dylon Gomez Jr Unavailable REASON FOR VISIT Labs Problems Problem Type SNOMED Code ICD Code Onset Dates Problem Status W/U Status Risk Notes Problem Anemia (D64.9) Active confirmed Encounters Encounter Location Date Provider Diagnosis [facility] [address] [place] [phone] 03/13/2025 Dylon Gomez Jr Anemia D64.9 Assessments Encounter Date Diagnosis (ICD Code) Assessment Notes Treatment Notes Treatment Clinical Notes Section Notes 03/13/2025 Anemia (ICD-10 - D64.9) Plan Of Treatment Pending Test Test Name Order Date IRON + IBC (FE) 03/13/2025 FERRITIN 03/13/2025 B12 03/13/2025 FOLATE 03/13/2025 CBC w/o DIFF 03/13/2025 Progress Notes * FRANCINE BUTLEROB:1940 (84 yo M)Acc No.[id number]:03/13/2025 Patient:?TIMMY BUTLER :1940???Age:84 Y???Sex:Male Address:[address] [place] [id number] Subjective: * Chief Complaints: * ???Labs * Medical History:? * Surgical History:? * Hospitalization/Major Diagno stic Procedure:? * Medications:? Objective: * Vitals:? * Physical Examination:? Assessment: * Assessment: 1.?Anemia - D64.9 (Primary)? ?? Plan: * Treatment: * Procedure Codes:? * true * Date:? Generated for Beatriz garrison/Shaila/Chela on:?03/25/2025 03:19 PM EDT
--- OUTSIDE RECORDS SUMMARY | 2025-03-25 15:20 | XMS_ITS ---
Author Organization [facility] Address [address] [place] [address] Care Team Providers Care Intranet Support Name Role Phone Mary Jean N.P Primary Care Provider Un available Dylon Gomez Jr Unavailable [phone] Allergies No Known Allergies REASON FOR VISIT Patient presents today for rectal bleeding Medications Medication SIG (Take, Route, Frequency, Duration) Notes Start Date End Date Status Losartan Potassium 50 MG Oral for 90 Days Active Furosemide 20 MG Oral for 90 Days Active Omeprazole 20 MG 1 capsule 1/2 to 1 hour before morning meal Orally Once a day Active Vitamin D 2000 UNIT 2 tablet Orally Once a day Active Xarelto 20 MG 1 tablet with food Orally Once a day Active Flonase 50 MCG/ACT 1 spray in each nostril Nasally Once a day as needed Active Metamucil 30.9 % 2 capsules with 8 ounces of liquid Orally prn Active Simvastatin 20 MG 1 tablet in the evening Orally Once a day Active Lisinopril 10 MG 1 tablet Orally Once a day Active Metoprolol Succinate ER 50 MG 1 tablet O rally Once a day Active hydroCHLOROthiazide 12.5 MG 1 capsule Or ally Once a day Active Social History Alcohol Screen Question Answer Notes Did you have a drink contain ing alcohol in the past year? Yes Points 4 Interpretation Positive How often did you have 6 or more drinks on one occasion in the past year? Never (0 point) How many drinks did you have on a typical day when you were drinking in the past year? 1 or 2 drinks (0 point) How often did you have a dri nk containing alcohol in the past year? 4 or more times a week (4 points) AUDIT-C (Standard) Question Answer Notes Did you have a drink containing alcohol in the p ast year? No Points 0 Interpretation Negative Problems Problem Type SNOMED Code ICD Code Onset Dates Problem Status W/U Status Risk Notes Problem Dysphagia (93699557) Dysphagia (R13.10) Active confirmed Vital Signs Temperature 97.5 degrees Fahrenheit 03/11/20 25 Blood pressure systolic 001 mm Hg 03/11/20 25 Blood pressure diastolic 01 mm Hg 025 Height 68.5 in 03/11/2025 Weight 226.2 lbs 03/11/2025 BMI 33.89 kg/m2 03/11/2025 Encounters Encounter Location Date Provider Diagnosis [facility] [address] [place] [address] 03/11/2025 Dylon Gomez Jr Rectal bleeding K62.5 and Dysphagia R13.10 Assessments Encounter Date Diagnosis (ICD Code) Assessment Notes Treatment Notes Treatment Clinical Notes Section Notes 03/11/2025 Rectal bleeding (ICD-10 - K62.5) We discussed his symptoms today. Some of his symptoms appear consistent with esophageal spasm. We discussed this. We discussed further evaluation today. He is inclined to avoid invasive endoscopic procedures if not necessary. We will obtain an upper GI series for further evaluation. His rectal bleeding was self-limited and has stopped. We discussed further evaluation with colonoscopy. He prefers to defer this for the time being. We will obtain upper GI series. Follow-up will be pending these results. He is advised to follow-up with his primary care provider for his shortness of breath on exertion. 03/11/2025 Dysphagia (ICD-10 - R13.10) We discussed his symptoms today. Some of his symptoms appear consistent with esophageal spasm. We discussed this. We discussed further evaluation today. He is inclined to avoid invasive endoscopic procedures if not necessary. We will obtain an upper GI series for further evaluation. His rectal bleeding was self-limited and has stopped. We discussed further evaluation with colonoscopy. He prefers to defer this for the time being. We will obtain upper GI series. Follow-up will be pending these results. He is advised to follow-up with his primary care provider for his shortness of breath on exertion. Plan Of Treatment Pending Test Test Name Order Date CBC w/o DIFF 03/11/2025 XR GI SERIES 03/11/2025 Next Appt Details Follow Up: 1 Year, Reason: Progress Notes * FRANCINE BUTLEROB:1940 (84 yo M)Acc No.[id number]:03/11/2025 Progress Notes Patient:TIMMY AGUILAR Provider:?Dylon Gomez MD :1940???Age:84 Y???Sex:Male Osbaldo e:03/11/2025 Address:[address] [place], [place] [id number] Pcp:Mary Jean N.P Subjective: * Chief Complaints: * ???1. Patient presents today for rectal bleeding. * HPI: ???New symptom(s):? The patient is a pleasant 84-year-old man seen today in consultation. 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 He also had 2 tubular adenomas removed. Diverticulosis was also noted. Today he complains of rectal bleeding for about 2 weeks, with associated diarrhea. There was no pain. He was eating nuts and thought this might have contributed to this. He was seen in the hospital. And subsequently discharged. Outside records are reviewed. He has been home for several weeks. He also has some upper GI symptoms with occasional dysphagia which is intermittent. He gets a tight feeling in his esophagus with associated pain. Symptoms are not precipitated by certain foods. They have not been progressive. He continues on omeprazole for reflux. He does complain of some shortness of breath with exertion. * ROS:?General/Constitutional:?Change in appetite?denies.?Fatigue?denies.?ENT:?Patient denies?difficulty swallowing.?Respiratory:?Patient denies?shortness of breath.?Cardiovascular:?Patient denies?chest pain.?Gastrointestinal:?Comments?See HPI for details.?Genitourinary:?Difficulty urinating?denies.?Incontinence?denies.?Musculoskeletal:?Patient denies?muscle aches.?Skin:?Patient denies?pruritis.?Neurologic:?Patient denies?low back pain.?Psychiatric:?Patient denies?mental or physical abuse.? * Medical History:?Colonoscopy 09/01, tubular adenomas x 2, radiation proctitis, follow-up optional based on age, Rosacea, Tachycardia, Atrial fibrillation, Prostate cancer. * Surgical History:?Removal be nign cyst of chest , prostatectomy , tonsillectomy , cardiac loop recorder 12/2018, skin cancer removal on nose , shoulder replacement . * Family History:?Father: dece ased, diagnosed with Heart disease, HTN (hypertension).?Mother: , diagnosed with HTN (hypertension), Diabetes.? No family history of colon cancer or liver cancer. * Social History:?Tobacco Use:?Tobacco Use/Smoking?Are you a: nonsmoker.?Drugs/Alcohol:?Alcohol Screen?Did you have a drink containing alcohol in the past year??Yes,?How often did you have 6 or more drinks on one occasion in the past year??Never (0 point),?How many drinks did you have on a typical day when you were drinking in the past year??1 or 2 drinks (0 point),?How often did you have a drink containing alcohol in the past year??4 or more times a week (4 points),?Points?4,?Interpretation?Positive.?Miscellaneous:?Marital status: . Occupation: retired--party plan sales consultant security. ???Drug/Alcohol:?AUDIT-C (Standard)?Did you have a drink containing alcohol in the past year??No,?Points?0,?Interpretation?Negative.? * Medications:?Taking Omeprazo le 20 MG Capsule Delayed Release 1 capsule 1/2 to 1 hour before morning meal Orally Once a day , Taking Metoprolol Succinate ER 50 MG Tablet Extended Release 24 Hour 1 tablet Orally Once a day , Taking Lisinopril 10 MG Tablet 1 tablet Orally Once a day , Taking hydroCHLOROthiazide 12.5 MG Capsule 1 capsule Orally Once a day , Taking Simvastatin 20 MG Tablet 1 tablet in the evening Orally Once a day , Taking Xarelto 20 MG Tablet 1 tablet with food Orally Once a day , Taking Vitamin D 2000 UNIT Tablet 2 tablet Orally Once a day , Taking Metamucil 30.9 % Powder 2 capsules with 8 ounces of liquid Orally prn , Taking Flonase 50 MCG/ACT Suspension 1 spray in each nostril Nasally Once a day , Notes to Pharmacist: as needed, Taking Furosemide 20 MG Tablet Oral , Taking Losartan Potassium 50 MG Tablet Oral , Discontinued ZyrTEC Allergy 10 MG Tablet 1 tablet Orally Once a day , Discontinued Colyte with Flavor Packs 240 GM Solution Reconstituted As directed Orally Over the specified time. , Medication List reviewed and reconciled with the patient * Allergies:?N.K.D.A. Objective: * Vitals:?Wt:226.2lbs, Ht: 68. 5 in, BMI:33.89Index, BP:001/01mm Hg, Temp:97.5, Wt- k.6. * Examination: ???General Examination: ?GENERAL APPEARANCE:?in no acute distress.?HEAD:?normocephalic.?EYES:?sclera non-icteric.?ORAL CAVITY:?mucosa moist.?NECK/THYROID:?no lymphadenopathy.?SKIN:?anicteric.?HEART:?S1, S2 normal, no murmurs.?LUNGS:?clear to auscultation bilaterally.?CHEST:?normal shape and expansion.?ABDOMEN:?soft, nontender, nondistended, bowel sounds present, no organomegaly .?EXTREMITIES:?no clubbing, cyanosis, or edema.?PSYCH:?cognitive function intact.? Assessment: * Assessment: 1.?Rectal bleeding - K62.5 ( Primary)???2.?Dysphagia - R13.10??? We discussed his symptoms to day. Some of his symptoms appear consistent with esophageal spasm. We discussed this. We discussed further evaluation today. He is inclined to avoid invasive endoscopic procedures if not necessary. We will obtain an upper GI series for further evaluation. His rectal bleeding was self-limited and has stopped. We discussed further evaluation with colonoscopy. He prefers to defer this for the time being. We will obtain upper GI series. Follow-up will be pending these results. He is advised to follow-up with his primary care provider for his shortness of breath on exertion. Plan: * Treatment: * 2.?Dysphagia?LAB: CBC w/o DIFF ?Imaging: XR GI SERIES* HendersonYani avendaño 03/11/2025 11: 41:25 AM EDT > PLEASE SCHEDULE THE UGI SERIES IN APRIL....NOT A TUESDAY OR TUESDAY HendersonYani 03/11/2025 11:46:44 AM EDT > scheduled on Wednesday June 11, 2025 at 10:00 a.m. Nothing to eat or drink after midnight. * * Procedure Codes:?1036F TOBAC CO NON-USER, G8785 BP SCR NOT PRFRM REC REASON NOS * Preventive Medicine:? ??Counseling:?Care goal follow-up plan:?Above Normal BMI Follow-up?Dietary management education, guidance, and counseling,?BMI management provided?Yes.? ??Screenings:?Fall Risk Screening?Fall Risk Assessment:?One fall with injury in the past year,?Screening:?One fall with injury in the past year,?Assessment:?Not performed, no reason specified,?Plan of Care:?Documented,?Type of fall plan of care:?Balance, strength and gait training or instruction provided.? * Follow Up:?1 Year * * Sign off status: Completed true * Provider:?Dylon Gomez MD Date:?0 03/11/2025 Generated for Beatriz garrison/Shaila/Akhilitting on:?03/25/2025 03:19 PM EDT History and Physical Notes * HPI (History of Present Illness) Category Sub-Category Detail Notes Category Not es New symptom(s) The patient is a pleasant 84-year-old man seen today in consultation. 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 He also had 2 tubular adenomas removed. Diverticulosis was also noted. Today he complains of rectal bleeding for about 2 weeks, with associated diarrhea. There was no pain. He was eating nuts and thought this might have contributed to this. He was seen in the hospital. And subsequently discharged. Outside records are reviewed. He has been home for several weeks. He also has some upper GI symptoms with occasional dysphagia which is intermittent. He gets a tight feeling in his esophagus with associated pain. Symptoms are not precipitated by certain foods. They have not been progressive. He continues on omeprazole for reflux. He does complain of some shortness of breath with exertion. Examination Category Sub-Category Detail Notes Category Not es General Examination GENERAL APPEARANCE: in no acute di stress HEAD: normocephalic EYES: sclera non-icteric NECK/THYROID: no lymphadenopathy HEART: S1, S2 normal, no mu rmurs CHEST: normal shape and exp ansion LUNGS: clear to auscultatio n bilaterally ABDOMEN: soft, nontender, non distended, bowel sounds present, no organomegaly SKIN: anicteric EXTREMITIES: no clubbing, cyanosi s, or edema PSYCH: cognitive function i ntact ORAL CAVITY: mucosa moist
--- OUTSIDE RECORDS SUMMARY | 2025-03-25 15:20 | XMS_ITS | Patient Health Record ---
Author Organization [facility] Address [address] [place] [address] Care Team Providers Care Freezer Person Name Role Phone Mary Jean N.P Primary Care Provider Un available Dylon Gomez Jr Unavailable [phone] Allergies No Known Allergies Results Component Value Reference Range Notes Complete Blood Count Auto Di ff Reviewed date:03/13/2025 03:11:58 PM Interpretation: Performing Lab:[facility], [address] [place] [id number] Notes/Report: White Blood Count 7.4 4.8-10.8 X10*3/uL Red Blood Count 4.79 4.60-5.80 X10*6/uL Hemoglobin 12.6 14.0-18.0 g/dl Hematocrit 40.3 42.0-52.0 % Mean Corpuscular Volume 84.1 80.0-98.0 fL Mean Corpuscular Hemoglobin 26.3 27.0-33.0 pg Mean Corpuscular HGB Conc 31.3 31.0-36.0 g/dl Red Cell Distribution Width 13.8 11.0-16.0 % Platelet Count 257 160-400 X10*3/uL Mean Platelet Volume 9.8 9.4-12.4 fL Neutrophils Percent Auto 58.2 45-73 % Imm Gran Pct Auto 0.4 0.0-0.4 % Lymphocytes Percent Auto 26.6 20-40 % Monocytes Percent Auto 9.8 2-11 % Eosinophils Percent Auto 3.5 0-4 % Basophils Percent Auto 1.5 0-2 % NRBC Pct Auto 0.0 0.0-0.2 /100WBC Neutrophils Absolute Auto 4.3 2.0-8.3 x10*3/u L Imm Gran Abs Auto 0.03 0.00-0.03 X10*3/uL Lymphocytes Absolute Auto 2.0 1.2-4.9 X10*3/u L Monocytes Absolute Auto 0.7 0.1-1.2 X10*3/uL Eosinophils Absolute Auto 0.3 0.0-0.4 X10*3/u L Basophils Absolute Auto 0.1 0.0-0.2 X10*3/uL NRBC Abs Auto 0.000 0.0-0.012 X10*3/uL Reason For Referral No Information Medications Medication SIG (Take, Route, Frequency, Duration) Notes Start Date End Date Status Vitamin D 2000 UNIT 2 tablet Orally Once a day Active Xarelto 20 MG 1 tablet with food Orally Once a day Active Flonase 50 MCG/ACT 1 spray in each nostril Nasally Once a day as needed Active Metamucil 30.9 % 2 capsules with 8 ounces of liquid Orally prn Active Lisinopril 10 MG 1 tablet Orally Once a day Active Metoprolol Succinate ER 50 MG 1 tablet O rally Once a day Active Simvastatin 20 MG 1 tablet in the evening Orally Once a day Active hydroCHLOROthiazide 12.5 MG 1 capsule Or ally Once a day Active Losartan Potassium 50 MG Oral for 90 Days Active Furosemide 20 MG Oral for 90 Days Active Omeprazole 20 MG 1 capsule 1/2 to 1 hour before morning meal Orally Once a day Active Immunizations Vaccine Route Administration Date Status Comme nts Flu vaccine no Preserv 3 and > Unknown 10/26/2016 Admin istered Influenza Unknown 08/29/2018 Administered Influenza Unknown 07/31/2024 Administered Social History AUDIT-C (Standard) Question Answer Notes Did you have a drink containing alcohol in the p ast year? No Points 0 Interpretation Negative Problems Problem Type SNOMED Code ICD Code Onset Dates Problem Status W/U Status Risk Notes Problem 92433466 Rectal bleeding (K62.5) Active confirmed Problem 351590985 Special screening for malignant neoplasms, colon (Z12.11) Active confirmed Problem Dysphagia (71264080) Dysphagia (R13.10) Active confirmed Problem Anemia (938499725) Anemia (D64.9) Active confirmed Vital Signs Temperature 97.5 degrees Fahrenheit 03/11/2025 Blood pressure diastolic 01 mm Hg 03/11/2025 Height 68.5 in 03/11/2025 Blood pressure systolic 001 mm Hg 03/11/2025 Weight 226.2 lbs 03/11/2025 BMI 33.89 kg/m2 03/11/2025 Encounters Encounter Location Date Provider Diagnosis [facility] [address] [place] [address] 03/11/2025 Dylon Gomez Jr Rectal bleeding K62.5 and Dysphagia R13.10 [facility] [address] [place] [address] 02/06/2025 Dylon Gomez Jr [facility] [address] [place] [address] 02/13/2025 Dylon Gomez Jr [facility] [address] [place] [address] 02/14/2025 Dylon Gomez Jr [facility] [address] [place] [address] 03/13/2025 Dylon Gomez Jr Anemia D64.9 Assessments [...] for his shortness of breath on exertion. 03/13/2025 Anemia (ICD-10 - D64.9) Plan Of Treatment Pending Test Test Name Order Date IRON + IBC (FE) 03/13/2025 FERRITIN 03/13/2025 B12 03/13/2025 FOLATE 03/13/2025 CBC w/o DIFF 03/11/2025 CBC w/o DIFF 03/13/2025 XR GI SERIES 03/11/2025 Future Test Test Name Order Date COLONOSCOPY 07/24/2015 COLONOSCOPY 01/10/2019 Insurance Providers Payer Name Payer Address Payer Phone Subscriber Number Group Number Insured Name Patient Relationship to Insured Coverage Start Date Coverage End Date [facility] [address] [place] [phone] [id number] TIMMY BUTLER Self - patient is the insured 4 Medical (General) History Medical History History ICD Code Colonoscopy 09/01, tubular a denomas x 2, radiation proctitis, follow-up optional based on age Rosacea Tachycardia atrial fibrillation prostate cancer Surgical History Surgery Date(Month/Year) shoulder replacement skin cancer removal on nose cardiac loop recorder 12/2018 tonsillectomy prostatectomy Removal benign cyst of chest
[2025-03-25 15:47] LABS: Imm Gran Abs Auto 0.02 X10*3/uL (0.00-0.03); Imm Gran Pct Auto 0.3 % (0.0-0.4); MANUAL DIFF FLAG SCAN; Mean Platelet Volume 11.1 fL (9.4-12.4); PLT CLUMP 1; SCAN SMEAR FLAG 1
[2025-03-25 15:49] LABS: Basophils Absolute Auto 0.1 X10*3/uL (0.0-0.2); Basophils Percent Auto 1.4 % (0-2); Eosinophils Absolute Auto 0.2 X10*3/uL (0.0-0.4); Eosinophils Percent Auto 3.4 % (0-4); Hematocrit 37.7 % (42.0-52.0); Hemoglobin 11.8 g/dl (14.0-18.0); Lymphocytes Absolute Auto 1.9 X10*3/uL (1.2-4.9); Lymphocytes Percent Auto 29.5 % (20-40); Mean Corpuscular HGB Conc 31.3 g/dl (31.0-36.0); Mean Corpuscular Hemoglobin 25.9 pg (27.0-33.0); Mean Corpuscular Volume 82.9 fL (80.0-98.0); Monocytes Absolute Auto 0.6 X10*3/uL (0.1-1.2); Monocytes Percent Auto 9.5 % (2-11); Neutrophils Absolute Auto 3.6 x10*3/uL (2.0-8.3); Neutrophils Percent Auto 55.9 % (45-73); Red Blood Count 4.55 X10*6/uL (4.60-5.80); Red Cell Distribution Width 13.7 % (11.0-16.0)
[2025-03-25 15:52] LABS: White Blood Count 6.5 X10*3/uL (4.8-10.8)
[2025-03-25 16:23] LABS: Iron 33 mcg/dL (45-160); Percent Iron Saturation 9 % (15-50); Total Iron Binding Capacity 368 mcg/dL (228-428); Unsaturated Iron Binding 335 ug/dL
[2025-03-25 16:38] LABS: Ferritin 35 ng/mL (20-250)
[2025-03-25 16:50] LABS: Vitamin B12 434 pg/mL (200-900)
[2025-03-25 17:43] LABS: Platelet Count 208 X10*3/uL (160-400); SLIDE REVIEW VERIFIED
== END 2025-03-25 15:15 | disposition home or self-care (01) ==
LOC: HO.LAB 15:14
PROVIDERS: PCP Nurse Practitioner Primary Care; Visit Provider Internal Medicine Gastroenterology
DX: D64.9 Anemia, unspecified (principal)
CPT/HCPCS: 36415; 82607; 82728; 82746; 83540; 85025

== ENCOUNTER → 2025-05-04 23:59 | Outpatient (BNV) | payer MEDICARE, SELFPAY ==
--- NOTE | 2025-05-14 12:21 | A.OFFVIS_ITS ---
Intake Visit Reasons: Remote device check- [employer] Allergies No Known Allergies (No Known Allergies*) Allergy (Verified 12/26/23 12:51) PFS Medical History On anticoagulant therapy On beta kelvin at home Hx of skin cancer, basal cell Elevated cholesterol Prostate cancer RAHEL on CPAP Port-site hernia Essential hypertension Persistent atrial fibrillation Pacemaker Surgical History History of incisional hernia repair S/P placement of cardiac pacemaker Hx of colonoscopy History of removal of cyst Hx of tonsillectomy H/O prostatectomy History of left shoulder replacement Family History Mother HTN (hypertension) Diabetes Father Heart attack Brother Asthma Paternal Grandfather Cancer Social History Are you a primary director long term care to a significant other at home: No Do you presently have visiting nurse or other home services: No Alcohol intake: current Alcohol intake frequency: other Patient Tobacco Use Status: Never used Tobacco Advance Directives Date on File: 10/01/19 Office Procedures Cardiac Device Check Cardiac Device Check Details: Date of service- 05/04/2025 ; Battery life >9 years; normal lead parameters; [employer] 30%; no significant arrhythmias. Overall normal device function. [id number] Cardiac Device Interrogation, pacemaker Procedure code (CPT) selection complete Assessment & Plan Assessment & Plan (1) Pacemaker: Code(s): Z95.0 - Presence of cardiac pacemaker Category: Medical (2) Persistent atrial fibrillation: Code(s): I48.19 - Other persistent atrial fibrillation Category: Medical Plan x Coding Level of Care Code Procedure Only Diagnoses Pacemaker Z95.0 Persistent atrial fibrillation I48.19 CPT Codes Cardiac Device Check - Cardiac Device 12: [id number] Cardiac Device Interrogation, pacemaker ([id number])
== END ==
PROVIDERS: PCP Nurse Practitioner Primary Care; Visit Provider Internal Medicine
DX: I48.19 Other persistent atrial fibrillation (principal); Z95.0 Presence of cardiac pacemaker
CPT/HCPCS: 93294

== ENCOUNTER 2025-06-11 09:29 | Outpatient (REF) | payer MEDICARE, SELFPAY ==
--- NOTE | ~2025-06-11 | FL_ITS ---
EXAMINATION: XR FLUOROSCOPY UPPER GI WITH AIR CLINICAL INFORMATION: Dysphagia COMPARISON: CT abdomen and pelvis 12/30/2021. TECHNIQUE: Routine upper GI air contrast study was performed in upright and lying position. FINDINGS: The oral administration of thick barium there is normal propagation bolus from the oral cavity through the pharynx into upper esophagus. There is slow delayed transition of barium from the mid to distal esophagus and stomach secondary to tertiary peristalsis. No intraluminal filling defect or obstruction seen. On oral administration of barium tablet there is normal passage from the oral cavity through the pharynx into the distal esophagus. There is transient obstruction of tablet at the GE junction. No laryngeal penetration or aspiration seen. Subsequently effervescent granules is administered orally with no obstruction. On placing supine and prone lying the course, caliber and peristalsis of the stomach, duodenal bulb and the sweep is normal. There is mild increased gastric secretions seen but no evidence of mucosal erosions or ulcerations. There is no gastroesophageal reflux or hiatal hernia. 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 There is partial obstruction of barium tablet at the GE junction. Mild increased gastric secretions, question hyper acidity. No gastroesophageal reflux or hiatal hernia. Electronically signed by: Brennen Izquierdo MD 06/11/2025 03:11 PM EDT
--- OUTSIDE RECORDS SUMMARY | 2025-06-11 10:00 | XMS_ITS | Data Portability ---
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 The change in the quality of sound in his ears such as sounding hollow was probably related to his URI with pneumonia. He is concerned about some postnasal drip and throat clearing. I reassured him on flexible laryngoscopy that there was no evidence of any sinusitis. No polyps or purulence in the nasal cavity. I do not see any pooled secretions in the hypopharynx. There is some mild erythema in the piriforms. I recommended adding a nasal saline rinse to his regimen. He should continue the fluticasone. He is having some dysphagia and has an upper endoscopy scheduled for the summer, so I did recommend reassessment of the throat if symptoms persist and EGD is otherwise unremarkable. [email or web address] Not available 03/27/2025 06:37:00 Plan of Treatment Reminders Order Date Submit Date Provider Last Modified By Organization Details Last Modified Time Details Appointments Establish ed 15 2024 10:30A M KATHERINE WARNER MD Not available Not available Not available Lab None recorded. Referral None recorded. Procedures None recorded. Surgeries None recorded. Imaging None recorded. Medication Orders None recorded. Patient TargetsNo targets recorded. Patient InstructionsNo instructions recorded. Reason for Referral None Reported. Results Created Date Observation Date Name Description Value Unit Range Abnormal Flag Note LastModifiedBy Organization Detail LastModifiedTime 03/22/20 25 audio gram No observ ation record ed. BARCODE Not Available 2024 13:51:14 Result Notes None recorded. Problems Name Problem SNOMED Code Status Onset Date Resolution Date Notes Provider Name and Address Organization Details Recorded Time Sensorineur al hearing loss of bilateral ears 421288466 Active 2024 JYOTI THOMAS AUD [facility], [place], [address], [facility] - [facility] 09:51:03 Bilateral tinnitus 1503611552142 Active 2024 JYOTI THOMAS AUD 100 [facility],[address], [place], [address], [facility] - [facility] 09:51:21 Posterior rhinorrhea 02645973 Active 2024 KATHERINE WARNER MD 100 [facility],[address], [place], [address], [facility] - [facility] 06:34:46 Clearing throat - hawking 605012242 Active 2024 KATHERINE WARNER MD 100 [facility],[address], [place], [address], [facility] - [facility] 06:34:53 Problem Notes None recorded. Procedures Surgical History Date Name Laterality Status Provider Name and Address Organization Details Recorded Time 03/22/20 25 Comp Audio with Tymps - 78045 & 79333 completed JYOTI THOMAS AUD [address] [facility] [address], [place], [address], [facility] - [facility] 03/22/2025 09:50:58 03/22/20 25 Fiberoptic Laryngoscopy (Comprehensive) completed KATHERINE WARNER MD 100 [facility],[address], [address], [facility] - [facility] 03/27/2025 06:34:37 operation on shoulder joint completed KATHERINE WARNER MD 100 [facility],[address], [address], [place] - [facility] 03/27/2025 06:32:23 tonsillectomy and adenoidectomy completed KATHERINE WARNER MD [address] [facility] [address], [address], [place] - [facility] 03/27/2025 06:32:33 cardiac pacemaker procedure completed KATHERINE WARNER MD [address] [facility] [address], [address], [place] - [facility] 03/27/2025 06:32:50 operation on breast completed KATHERINE WARNER MD [address],[facility], [place], [address], [place] [facility] 03/27/2025 06:33:01 Imaging Results None recorded. Procedure Notes None recorded. Medical Equipment None Reported. Allergies No known drug allergies Medications Name Sig Start Date Stop Date Status Note LastModified by Organization Details LastModified Time losartan 50 mg tablet Take 1 tablet every day by oral route. active Not Available Not Available No t Available azithromyci n 250 mg tablet TAKE 2 TABLETS BY MOUTH TODAY, THEN TAKE 1 TABLET DAILY FOR 4 DAYS DIRECTED 03/22 completed Not Available Not Available Not Available ofloxacin 0.3 % ear drops PLACE 5 DROPS INTO THE LEFT EAR 2 TIMES A DAY. 03/22 completed Not Available Not Available Not Available omeprazole 20 mg capsule,del ayed release Take 1 capsule every day by oral route. active Not Available Not Available No t Available furosemide 20 mg tablet Take 1 tablet every day by oral route. active Not Available Not Available No t Available gabapentin 100 mg capsule TAKE 1 CAPSULE BY MOUTH THREE TIMES A DAY 03/22 completed Not Available Not Available Not Available ibuprofen 600 mg tablet TAKE 1 TABLET BY MOUTH EVERY 6 HOURS NEEDED FOR MILD PAIN 03/22 completed Not Available Not Available Not Available amoxicillin 875 mg-potassiu m clavulanate 125 mg tablet TAKE 1 TABLET BY MOUTH EVERY 12 HOURS FOR 7 DAYS 03/22 completed Not Available Not Available Not Available Ventolin HFA 90 mcg/actuati on aerosol inhaler Inhale 2 puffs every 4 hours by inhalatio n route. active Not Available Not Available No t Available oxycodone 5 mg tablet TAKE 1 TABLET BY MOUTH EVERY 6 HOURS NEEDED FOR SEVERE PAIN 03/22 completed Not Available Not Available Not Available Xarelto 20 mg tablet Take 1 tablet every day by oral route. active Not Available Not Available No t Available metoprolol succinate ER 50 mg capsule sprinkle, ext. release 24 hr Take 1 capsule every day by oral route. active Not Available Not Available No t Available Vitals Date Recorded Body height Body mass index (BMI) Body weight Provider Name and Address Organization Details Last Updated DateTime 03/22/2025 170.82 cm 34.7 kg/m2 633449.1 g Janie Manzo [place] - [facility] 03/22/2025 10:23:37 Social History None recorded. Functional Status None recorded. Mental Status None recorded. Family History Nothing Reported. Medical History Condition Response Cancer Y Anemia Y Past Encounters Encounter ID Performer Location Encounter Start Date Encounter Closed Date Diagnosis/Indication Diagnosis SNOMED-CT Code Diagnosis ICD10 Code Diagnosis Note [id number] KATHERINE WARNER MD [facility] [address] [address] 03/22/2025 09:38:00 03/22/2025 12:08:18 Sensorineural hearing loss of bilateral ears 422163421 H90.3 Right Ear:Mild to profound SNHL with good speech discrimina tion.Type Ad tympanogra m.Left Ear:Mild to profound SNHL with good speech discrimina tion.Type Ad tympanogra m. Bilateral tinnitus 09747 27322 102 H93.13 Posterior rhinorrhea 758 45256 R09.82 Clearing t hroat - hawking 220867774 R09.89 Health Concerns Section Related Observation LastModified by Organization Detai ls LastModified Time None Recorded Concern Status LastModified by Organization Details LastModified Time None Recorded Advance Directives Directive None Recorded Payers Insurance Date Sequence Insurance Name Policy Number Policy Hazel Covered Member ID Hazel Member ID Guarantor Name 03/22/2025 1 [facility] (MEDICARE REPLACEMENT/ ADVANTAGE - PPO) [id number] Aden Gregorio [id number] Aden Gregorio
--- OUTSIDE RECORDS SUMMARY | 2025-06-11 10:00 | XMS_ITS | Encounter Summary ---
Author Organization [facility] Address [address] [address] Phone Care Team Providers Care Ice Seller Name Role Phone Jerod Peace MD Primary Care Provider Mary Juarez NP Primary Care Provid er Encounter Details Date Type Department Care Team (Late st Contact Info) Description 01/05/2019 Procedure Pass [facility] [address] [place] [address] Social History Tobacco Use Types Packs/Day Years Used Date Smoking Tobacco: Never Smokeless Tobacco: Never Alcohol Use Standard Drinks/Week Comments Yes 14 (1 standard drink = 0.6 oz pu re alcohol) 2-3 scotch per day Sex and Gender Information Value Date Recorded Sex Assigned at Not on file Legal Sex Male 10:12 PM EDT Gender Identity Not on file Sexual Orientation Not on file documented as of this encounter Plan of Treatment Not on file documented as of this encounter Visit Diagnoses Not on filedocumented in this encounter Care Teams Ice Seller Relationship Specialty Start Date End Date Jerod Peace MD PCP - General 09/01/17 03/09/21 Mary Jean NP [address] [place] [address] PCP - General Family Medicine 03/10/21 documented as of this encounter Additional Source Comments The information contained in this document represents components of the legal health record. It is not the complete legal health record.[facility]
--- OUTSIDE RECORDS SUMMARY | 2025-06-11 10:00 | XMS_ITS | Patient Health Record ---
Author Organization [facility] Address [address] [place] [address] Care Team Providers Care Welfare Eligibility Interviewer Name Role Phone Mary Jean N.P Primary Care Provider Un available Dylon Gomez Jr Unavailable Allergies No Known Allergies Results Component Value Reference Range Notes Complete Blood Count Auto Di ff Reviewed date:03/13/2025 03:11:58 PM Interpretation: Performing Lab:[facility], [address] [place] [phone] Notes/Report: White Blood Count 7.4 4.8-10.8 X10*3/uL [...] X10*3/uL NRBC Abs Auto 0.000 0.0-0.012 X10*3/uL Complete Blood Count Auto Di ff Reviewed date:03/28/2025 11:05:53 AM Interpretation: Performing Lab:[facility], [address] [place] [phone] Notes/Report: White Blood Count 6.5 4.8-10.8 X10*3/uL Red Blood Count 4.55 4.60-5.80 X10*6/uL Hemoglobin 11.8 14.0-18.0 g/dl Hematocrit 37.7 42.0-52.0 % Mean Corpuscular Volume 82.9 80.0-98.0 fL Mean Corpuscular Hemoglobin 25.9 27.0-33.0 pg Mean Corpuscular HGB Conc 31.3 31.0-36.0 g/dl Red Cell Distribution Width 13.7 11.0-16.0 % Platelet Count 208 160-400 X10*3/uL Mean Platelet Volume 11.1 9.4-12.4 fL Neutrophils Percent Auto 55.9 45-73 % Imm Gran Pct Auto 0.3 0.0-0.4 % Lymphocytes Percent Auto 29.5 20-40 % Monocytes Percent Auto 9.5 2-11 % Eosinophils Percent Auto 3.4 0-4 % Basophils Percent Auto 1.4 0-2 % NRBC Pct Auto 0.0 0.0-0.2 /100WBC Neutrophils Absolute Auto 3.6 2.0-8.3 x10*3/u L Imm Gran Abs Auto 0.02 0.00-0.03 X10*3/uL Lymphocytes Absolute Auto 1.9 1.2-4.9 X10*3/u L Monocytes Absolute Auto 0.6 0.1-1.2 X10*3/uL Eosinophils Absolute Auto 0.2 0.0-0.4 X10*3/u L Basophils Absolute Auto 0.1 0.0-0.2 X10*3/uL NRBC Abs Auto 0.000 0.0-0.012 X10*3/uL IRON PROFILE Reviewed date:03/28/2025 11:06:18 AM Interpretation: Performing Lab:[facility], [address] [place] [phone] Notes/Report: Iron 33 45-160 mcg/dL Slight Hemolys is.Interpret result with caution. Total Iron Binding Capacity 368 228-428 mcg/d L Percent Iron Saturation 9 15-50 % Unsaturated Iron Binding 335 Ferritin Reviewed date:03/28/2025 11:06:08 AM Interpretation: Performing Lab:[facility], [address] [place] [phone] Notes/Report: Ferritin 35 20-250 ng/mL Vitamin B12 Reviewed date:03/28/2025 11:06:01 AM Interpretation: Performing Lab:[facility], [address] [place] [phone] Notes/Report: Vitamin B12 434 200-900 pg/mL NORMAL 200-900 PG/ML INDETERMINATE 160-199 PG/ML DEFICIENT < 160 PG/ML Folate Reviewed date:03/28/2025 11:05:58 AM Interpretation: Performing Lab:[facility], [address] [place] [phone] Notes/Report: Folate 9.0 > or = 4.0 ng/mL Reference Values: > or = 4.0 ng/mL < 4.0 ng/mL suggests folate deficiency Methotrexate, aminopterin and folinic acid (leucovorin) are chemotherapeutic agents whose molecular structures are similar to folate; therefore, the Iuss Acoustic Analyst folate assay cannot be used for patients using these drugs. SLIDE REVIEW Reviewed date:03/28/2025 11:05:43 AM Interpretation: Performing Lab:[address] [address] Notes/Report: SLIDE REVIEW VERIFIED Reason For Referral No Information Medications Medication [...] Problem Status W/U Status Risk Notes Problem 09131589 Rectal bleeding (K62.5) Active confirmed Problem 041099812 Special screening for malignant neoplasms, colon (Z12.11) Active confirmed Problem Dysphagia (15236778) Dysphagia (R13.10) Active confirmed Problem Anemia (719932384) Anemia (D64.9) Active confirmed Vital Signs Temperature 97.5 degrees Fahrenheit 03/11/2025 Blood pressure diastolic 01 mm Hg 03/11/2025 Height 68.5 in 03/11/2025 Blood pressure systolic 001 mm Hg 03/11/2025 Weight 226.2 lbs 03/11/2025 BMI 33.89 kg/m2 03/11/2025 Encounters Encounter Location Date Provider Diagnosis [facility] [address] [place] [address] 03/11/2025 Dylon Gomez Jr Rectal bleeding K62.5 and Dysphagia R13.10 [facility] [address] [place] [address] 02/06/2025 Dylon Gomez Jr [facility] [address] [place] [address] 02/13/2025 Dylon Gomez Jr [facility] [address] [place], [place] [address] 02/14/2025 Dylon Gomez Jr [facility] [address] [place], [place] [address] 03/13/2025 Dylon Gomez Jr Anemia D64.9 [facility] [address] [place], [place] [address] 03/28/2025 Dylon Gomez Jr Anemia D64.9 Assessments Encounter [...] on exertion. 03/13/2025 Anemia (ICD-10 - D64.9) 03/28/2025 Anemia (ICD-10 - D64.9) Plan Of Treatment Pending Test Test Name Order Date IRON + IBC (FE) 03/13/2025 IRON + IBC (FE) 03/28/2025 FERRITIN 03/13/2025 FERRITIN 03/28/2025 B12 03/13/2025 FOLATE 03/13/2025 CBC w/o DIFF 03/13/2025 CBC w/o DIFF 03/28/2025 CBC w/o DIFF 03/11/2025 XR GI SERIES 03/11/2025 Future Test Test Name Order Date COLONOSCOPY 07/24/2015 COLONOSCOPY 01/10/2019 Insurance Providers Payer Name Payer Address Payer Phone Subscriber Number Group Number Insured Name Patient Relationship to Insured Coverage Start Date Coverage End Date [facility] [address] [place] [address] [id number] TIMMY BUTLER Self - patient is the [...]
== END 2025-06-11 09:30 | disposition home or self-care (01) ==
LOC: HO.XRAY 09:29
PROVIDERS: PCP Nurse Practitioner Primary Care; Visit Provider Internal Medicine Gastroenterology
DX: K62.5 Hemorrhage of anus and rectum (principal); R13.10 Dysphagia, unspecified
CPT/HCPCS: 74246

== ENCOUNTER → 2025-06-11 10:00 | Outpatient (BNV) | payer MEDICARE, SELFPAY | PROVIDERS: PCP Nurse Practitioner Primary Care; Visit Provider Radiology Diagnostic Radiology | DX: R13.10 Dysphagia, unspecified (principal); K22.4 Dyskinesia of esophagus | CPT/HCPCS: 74246 ==

== ENCOUNTER 2025-06-14 14:11 | Outpatient (AMB) | payer MEDICARE, SELFPAY ==
--- OUTSIDE RECORDS SUMMARY | 2025-06-14 14:15 | XMS_ITS | Patient Health Record ---
Author Organization [facility] Address [address] [place] [address] Care Team Providers Care Elevator Operator Name Role Phone Mary Jean N.P Primary Care Provider Un available Dylon Gomez Jr Unavailable Allergies No Known Allergies Results Component Value Reference Range Notes Complete Blood Count Auto Di ff Reviewed date:03/13/2025 03:11:58 PM Interpretation: Performing Lab:[facility], [address] [place] [phone] Notes/Report: White Blood Count 7.4 4.8-10.8 X10*3/uL [...] ff Reviewed date:03/28/2025 11:05:53 AM Interpretation: Performing Lab:[facility], [address] [place] [phone] Notes/Report: White Blood Count 6.5 4.8-10.8 X10*3/uL [...] PROFILE Reviewed date:03/28/2025 11:06:18 AM Interpretation: Performing Lab:[facility], [address] [place] [phone] Notes/Report: Iron 33 45-160 mcg/dL Slight Hemolys is.Interpret result with caution. Total Iron Binding Capacity 368 228-428 mcg/d L Percent Iron Saturation 9 15-50 % Unsaturated Iron Binding 335 Ferritin Reviewed date:03/28/2025 11:06:08 AM Interpretation: Performing Lab:[facility], [address] [place] [phone] Notes/Report: Ferritin 35 20-250 ng/mL Vitamin B12 Reviewed date:03/28/2025 11:06:01 AM Interpretation: Performing Lab:[facility], [address] [place] [phone] Notes/Report: Vitamin B12 434 200-900 pg/mL NORMAL 200-900 PG/ML INDETERMINATE 160-199 PG/ML DEFICIENT < 160 PG/ML Folate Reviewed date:03/28/2025 11:05:58 AM Interpretation: Performing Lab:[facility], [address] [place] [phone] Notes/Report: Folate 9.0 > or = 4.0 ng/mL Reference Values: > or = 4.0 ng/mL < 4.0 ng/mL suggests folate deficiency Methotrexate, aminopterin and folinic acid (leucovorin) are chemotherapeutic agents whose molecular structures are similar to folate; therefore, the Cork Insulator Helper folate assay cannot be used for patients using these drugs. SLIDE REVIEW Reviewed date:03/28/2025 11:05:43 AM Interpretation: Performing Lab:[facility], [address] [place] [phone] Notes/Report: SLIDE REVIEW VERIFIED FL upper GI w air Reviewed date:06/13/2025 07:54:12 AM Interpretation: Performing Lab: Notes/Report: [address] [address] Fluoroscopy Report Signed Patient: Timmy Mtz MR#: [id number] 91 : 1940 Acct:[id number] Age/Sex: 84 / M ADM Date: 06/11/25 Loc: HO.XRAY Attending Dr: Dylon Gomez MD Ordering Physician: Dylon Gomez MD Date of Service: 06/11/25 Procedure(s): FL upper GI w air Accession Number(s): [id number] cc: Dylon Gomez MD; Mary Jean CNP EXAMINATION: XR FLUOROSCOPY UPPER GI WITH AIR CLINICAL INFORMATION: Dysphagia COMPARISON: CT abdomen and pelvis 12/30/2021. TECHNIQUE: Routine upper GI air contrast study was performed in upright and lying position. FINDINGS: The oral administration of thick barium there is normal propagation bolus from the oral cavity through the pharynx into upper esophagus. There is slow delayed transition of barium from the mid to distal esophagus and stomach secondary to tertiary peristalsis. No intraluminal filling defect or obstruction seen. On oral administration of barium tablet there is normal passage from the oral cavity through the pharynx into the distal esophagus. There is transient obstruction of tablet at the GE junction. No laryngeal penetration or aspiration seen. Subsequently effervescent granules is administered orally with no obstruction. On placing supine and prone lying the course, caliber and peristalsis of the stomach, duodenal bulb and the sweep is normal. There is mild increased gastric secretions seen but no evidence of mucosal erosions or ulcerations. There is no gastroesophageal reflux or hiatal hernia. 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 There is partial obstruction of barium tablet at the GE junction. Mild increased gastric secretions, question hyper acidity. No gastroesophageal reflux or hiatal hernia. Electronically signed by: Brennen Izquierdo MD 06/11/2025 03:11 PM EDT Dictated By: Brennen Izquierdo MD Signed By: <Electronically signed by Brennen Izquierdo MD in OV> 06/11/25 1511 DD/ 1000 TD/TT: 06/11/25 1014 Dispatch Clerk: RICKY Reason For Referral No Information Medications Medication [...] Problem Status W/U Status Risk Notes Problem 99144721 Rectal bleeding (K62.5) Active confirmed Problem 399404556 Special screening for malignant neoplasms, colon (Z12.11) Active confirmed Problem Dysphagia (80158233) Dysphagia (R13.10) Active confirmed Problem Anemia (528422350) Anemia (D64.9) Active confirmed Vital Signs Temperature 97.5 degrees Fahrenheit 03/11/2025 Blood pressure diastolic 01 mm Hg 03/11/2025 Height 68.5 in 03/11/2025 Blood pressure systolic 001 mm Hg 03/11/2025 Weight 226.2 lbs 03/11/2025 BMI 33.89 kg/m2 03/11/2025 Encounters Encounter Location Date Provider Diagnosis [facility] [address] [place] [address] 03/11/2025 Dylon Gomez Jr Rectal bleeding K62.5 and Dysphagia R13.10 [facility] [address] [place] [address] 02/06/2025 Dylon Gomez Jr [facility] [address] [place], [place] [address] 02/13/2025 Dylon Gomez Jr [facility] [address] [place] [address] 02/14/2025 Dylon Bermanord Jr [facility] [address] [place] [address] 03/13/2025 Dylon Jason Jr Anemia D64.9 [facility] [address] [place] [address] 03/28/2025 Dylon Jason Anemia D64.9 [facility] [address] [place] [address] 06/13/2025 Dylon Gomez Jr Assessments Encounter Date Diagnosis (ICD Code) Assessment [...] B12 03/13/2025 FOLATE 03/13/2025 CBC w/o DIFF 03/28/2025 CBC w/o DIFF 03/11/2025 CBC w/o DIFF 03/13/2025 XR GI SERIES 03/11/2025 Future Test Test Name Order Date COLONOSCOPY 07/24/2015 COLONOSCOPY 01/10/2019 Insurance Providers Payer Name Payer Address Payer Phone Subscriber Number Group Number Insured Name Patient Relationship to Insured Coverage Start Date Coverage End Date [facility] [address] [facility] [place] [address] [id number] TIMMY MTZ Self - patient is the insured 4 [...]
--- OUTSIDE RECORDS SUMMARY | 2025-06-14 14:15 | XMS_ITS | Encounter Summary ---
Author Organization [facility] Address [address] [address] Phone Care Team Providers Care Payment Manager Name Role Phone Jerod Peace MD Primary Care Provider Mary Juarez NP Primary Care Provid er Encounter Details Date Type Department Care Team (Late st Contact Info) Description 01/05/2019 Procedure Pass [facility]iology [address] [place] [address] Social History Tobacco Use Types Packs/Day Years [...] on filedocumented in this encounter Care Teams Payment Manager Relationship Specialty Start Date End Date Jerod Peace MD PCP - General 09/01/17 03/09/21 Mary Jean NP [address] [place] [phone] PCP - General Family Medicine 03/10/21 documented as of this encounter Additional Source Comments The information contained in this document represents components of the legal health record. It is not the complete legal health record.[facility]
--- NOTE | 2025-06-14 14:16 | MHC.OFFVIS ---
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 He was sent from PCP for pulmonary evaluation for recurring pneumonia. He started with bronchitic symptoms at the end of January 2025, diagnosed with pneumonia in February and treated with multiple rounds of antibiotics including azithromycin followed by Augmentin and another course of azithromycin with minimal improvement. CXR initially reported resolving infiltrates/opacities in February however symptoms persisted and repeat CXR 04/24 revealed increasing prominence of RUL/RML opacities. He did undergo CT 05/31 which revealed predominantly right upper lobe opacity with appearance suggesting organizing pneumonia/resolving pneumonia with recommend follow-up chest x-ray to demonstrate resolution in 2-3 months. Ultimately patient was placed on Levaquin in addition to Doxycycline in May and reports 75-80 % improvement. He continues to report occasional productive cough, unknown color of sputum, and intermittent dyspnea. He denies wheezing, chest congestion, fevers or chills. He denies h/o asthma/COPD. 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 He reports mother with asthma otherwise no pertinent family history. He also notes h/o RAHEL unknown severity previously under the care of [facility] sleep on ASV. His continues to report snoring despite use and questions appropriate pressures. JOSUÉ Weaver&Hari. [facility] Medical History On anticoagulant therapy On beta kelvin at home Hx of skin cancer, basal cell Elevated cholesterol Prostate cancer RAHEL on CPAP Port-site hernia Essential hypertension Persistent atrial fibrillation Pacemaker Surgical History History of incisional hernia repair S/P placement of cardiac pacemaker Hx of colonoscopy History of removal of cyst Hx of tonsillectomy H/O prostatectomy History of left shoulder replacement Family History Mother HTN (hypertension) Diabetes Father Heart attack Brother Asthma Paternal Grandfather Cancer Social History Are you a primary farm or ranch animal caretaker to a significant other at home: No Do you presently have visiting nurse or other home services: No Alcohol intake: current Alcohol intake frequency: other Patient Tobacco Use Status: Never used Tobacco Advance Directives Date on File: 10/01/19 Review of Systems Const Denies chills, Denies excessive sweating, Denies fever(s), Denies headache(s) and Denies night sweats Eyes Denies dry eyes, Denies irritation and Denies itchy eyes ENT Reports Normal hearing present, Denies headache(s), Denies nasal congestion, Denies nasal discharge, Denies post nasal drip and Denies sore throat Card Denies chest pain, Denies chest pain at rest, Denies chest pain with activity, Denies claudication, Denies leg edema, Denies dyspnea, Denies orthopnea and Denies paroxysmal nocturnal dyspnea Resp Denies chest congestion, Denies excessive phlegm production, Denies pain on inspiration, Denies pain with cough, Denies dyspnea, Denies stridor and Denies wheezing Musc Denies myalgias Neuro Reports Normal hearing present and Denies headache(s) Endo Denies excessive sweating Curry/Lymph Denies lymphadenopathy Aller/Immun Denies itchy eyes, Denies seasonal rhinorrhea and Denies wheezing Physical Exam Vital Signs: Last Vital Signs Pulse 62 06/14/25 14:17 BP 134/78 06/14/25 14:17 Pulse Ox 99 06/14/25 14:17 Oxygen Delivery Method Room Air 06/14/25 14:17 BMI result Body Mass Index 33.4 Const General: cooperative, healthy appearing, comfortable, no acute distress, well developed and alert Nutritional Appearance: obese Orientation/consciousness: patient oriented x3 Limitations: no limitations HEENT Head: Yes normal to inspection, Yes normocephalic and Yes atraumatic Ears: hearing grossly normal bilaterally and external ears normal Eyes General: appearance normal, both eyes and all related structures Eyelids: Yes eyelids normal Sclerae: sclerae normal EOM: EOMs intact bilaterally Neck Neck: Yes normal visual inspection and Yes no lymphadenopathy Lymphatic: no lymphadenopathy noted Chest Chest palpation & inspection: normal inspection of the chest Resp Effort & Inspection: normal respiratory effort, able to speak in complete sentences, no audible wheezes, no cough, no stridor, not tachypneic, no tripod positioning and no use of accessory muscles Auscultation: clear to auscultation bilaterally Cardio Jugular venous distension: no JVD Rate: regular rate Skin Other: warm, dry General skin exam: no rashes or lesions noted Neuro General: patient oriented x3 Cranial nerves: Yes Normal hearing present Cognition (Neuro): normal cognition Gait exam (Neuro): Normal gait present Extrem General: Yes normal to inspection, Yes capillary refill normal, Yes no clubbing, cyanosis or edema and Yes no pedal edema Psych Appearance: grossly normal and well kempt Speech and movement: Normal speech and movement present and Clear speech present Affect: normal affect Attitude: cooperative Thought process: Normal thought process present Thought content: Normal thought content present Insight: Good insight present (Psych) Judgement: Good judgement present (Psych) Results Reviewed Results Reviewed: Show Details RESULT: CT Chest W/O Contrast CT Chest W/O Contrast INDICATION: Reason: J40 Bronchitis, not specified as acute or chronic, J18.9 Pneumonia, unspecified organism; Clinical Question(s): Other: TECHNIQUE: Helical CT scan of the chest without IV contrast, formatted in 3 planes. Weight-based protocol was performed using automatic exposure control. CTDIvol Body: 16.40 mGy, DLP Body: 624 mGy*cm. COMPARISON: None. FINDINGS: In Service Coordinator view findings, lines and tubes: None. Trachea and airways: Patent without evidence of tracheal or endobronchial lesion. Lungs and pleura: Subpleural opacity with scattered additional opacities demonstrating relatively well demarcated appearance. Overall findings consistent with organizing pneumonia. Some bronchiectasis present in the involved areas. Mild groundglass opacity in the left upper lobe. Mediastinum and oliver: No mass or hematoma. No mediastinal or hilar lymphadenopathy. No esophageal abnormality. Heart: Heart is normal in size. No pericardial effusion. Aorta: No aortic aneurysm. Pulmonary arteries: Normal caliber. Chest wall soft tissues: No acute abnormality. Diaphragm: Intact. Upper abdomen: No significant abnormality. Bones: Old rib fractures in the left chest. IMPRESSION: Predominantly right upper lobe opacity with appearance suggesting organizing pneumonia/resolving pneumonia. Recommend follow-up chest x-ray to demonstrate resolution in 2-3 months. WSN: [id number] Ordering Physician: Brannon Wing Assessment & Plan Assessment & Plan (1) History of recent pneumonia: Code(s): Z87.01 - Personal history of pneumonia (recurrent) Category: Medical (2) RAHEL on CPAP: Code(s): G47.33 - Obstructive sleep apnea (adult) (pediatric); Z99.89 - Dependence on other enabling machines and devices Category: Medical (3) Loud snoring: Code(s): R06.83 - Snoring Category: Medical (4) Dyspnea: Code(s): R06.00 - Dyspnea, unspecified Category: Medical (5) Cough: Code(s): R05.9 - Cough, unspecified Category: Medical Plan Aden presents after recurrent pneumonia that started in the Spring and has persisted on imaging despite multiple rounds of antibiotics. He recently had CT which revealed possible resolving pneumonia and feels symptoms are significantly improved after Levaquin and Doxycyline. Will repeat imaging in 4 weeks to assess for further resolution. Patient with known h/o RAHEL currently on ASV. continues to report loud snoring despite therapy. Will send for in lab titration study to ensure optimal pressures. Patient also with intermittent cough and dyspnea, will send for PFT to further evaluate. All questions were answered and patient is in agreement of plan. Will follow up in 4 weeks or sooner if needed. Orders: Orders PFT pulmonary function test Today R06.00 - Dyspnea, unspecified RT PSG in-lab sleep titration Today G47.33 - Obstructive sleep apnea (adult) (pediatric), R06.83 - Snoring, Z99.89 - Dependence on other enabling machines and devices XR chest 2V Today Z87.01 - Personal history of pneumonia (recurrent) Coding Level of Care Code New Pt Level 4 (15675) Complex EM visit Add On G2211 Diagnoses History of recent pneumonia Z87.01 RAHEL on CPAP G47.33; Z99.89 Loud snoring R06.83 Dyspnea R06.00 Cough R05.9
[2025-06-14 14:17] VITALS: BP 134/78; PULSE 62; O2SAT 99; BMI 33.4
== END 2025-06-14 15:24 | disposition home or self-care (01) ==
LOC: HO.HPSW 14:13
PROVIDERS: Family Provider Physician Assistant Medical; PCP Nurse Practitioner Primary Care; Visit Provider Nurse Practitioner Family
DX: Z87.01 Personal history of pneumonia (recurrent) (principal); G47.33 Obstructive sleep apnea (adult) (pediatric); Z99.89 Dependence on other enabling machines and devices; R06.83 Snoring; R06.00 Dyspnea, unspecified; R05.9 Cough, unspecified
CPT/HCPCS: 99204; G2211

== ENCOUNTER → 2025-06-14 14:11 | Outpatient (BNVA) | payer MEDICARE, SELFPAY | PROVIDERS: Family Provider Physician Assistant Medical; PCP Nurse Practitioner Primary Care; Visit Provider Nurse Practitioner Family | DX: G47.33 Obstructive sleep apnea (adult) (pediatric) (principal); Z99.89 Dependence on other enabling machines and devices; Z87.01 Personal history of pneumonia (recurrent); R06.83 Snoring; R06.00 Dyspnea, unspecified; R05.9 Cough, unspecified | CPT/HCPCS: 99202 ==

== ENCOUNTER → 2025-07-22 20:30 | Outpatient (REF) | payer MEDICARE, SELFPAY | LOC: HO.SL 20:30 | PROVIDERS: PCP Nurse Practitioner Primary Care; Visit Provider Nurse Practitioner Family | DX: G47.33 Obstructive sleep apnea (adult) (pediatric) (principal); Z99.89 Dependence on other enabling machines and devices; R06.83 Snoring | CPT/HCPCS: 95810 ==

== ENCOUNTER → 2025-07-22 21:40 | Outpatient (BNV) | payer MEDICARE, SELFPAY | PROVIDERS: PCP Nurse Practitioner Primary Care; Visit Provider Internal Medicine | DX: G47.33 Obstructive sleep apnea (adult) (pediatric) (principal); R06.83 Snoring | CPT/HCPCS: 95810 ==

== ENCOUNTER 2025-07-30 14:00 | Outpatient (AMB) | payer MEDICARE, SELFPAY ==
--- OUTSIDE RECORDS SUMMARY | 2023-06-26 15:24 | XMS_ITS | Encounter Summary ---
Author Organization [facility] Address [address] [place] [address] Phone Care Team Providers Care Building Consultant Name Role Phone Mary Jean LAUNDRY MARKER SUPERVISOR Primary Care Provid er Encounter Details Date Type Department Care Team (Late st Contact Info) Description 06/26/2023 3:24 PM EDT Hospital Encounter [facility] [address] [place] [phone] Kena Michel CNP [address] [place] [address] [email or web address] Social History Tobacco Use Types Packs/Day Years [...] right wrist or right hand. Kena Michel BUSINESS DIRECTOR IMG XR UPPER EXTREMITY Josefa l Result documented in this encounter Visit Diagnoses Not on filedocumented in this encounter Care Teams Building Consultant Relationship Specialty Start Date End Date Mary Jean NP [address] [place] [address] PCP - General Family Medicine 03/10/21 documented as of this encounter Additional Source Comments The information contained in this document represents components of the legal health record. It is not the complete legal health record.[facility]
--- OUTSIDE RECORDS SUMMARY | 2023-06-26 15:24 | XMS_ITS | Encounter Summary ---
Author Organization [facility] Address [address] [address] Phone Care Team Providers Care Prototype Technician Name Role Phone Mary Jean SALES SERVICE MANAGER Primary Care Provid er Encounter Details Date Type Department Care Team (Late st Contact Info) Description 06/26/2023 3:24 PM EDT Hospital Encounter [facility] [address] [place] [phone] Kena Michel CNP [address] [place] [address] Social History Tobacco Use Types Packs/Day Years [...] IMPRESSION: No displaced rib fracture. Kena Michel BONE COOKING OPERATOR IMG XR CHEST Final Resul t documented in this encounter Visit Diagnoses Not on filedocumented in this encounter Care Teams Prototype Technician Relationship Specialty Start Date End Date Mary Jean NP [address] [place] [address] PCP - General Family Medicine 03/10/21 documented as of this encounter Additional Source Comments The information contained in this document represents components of the legal health record. It is not the complete legal health record.[facility]
--- OUTSIDE RECORDS SUMMARY | 2023-06-26 15:25 | XMS_ITS | Encounter Summary ---
Author Organization [facility] Address [address] [place] [address] Phone Care Team Providers Care Millinery Worker Name Role Phone Mary Jean NUCLEAR EQUIPMENT RESEARCH ENGINEER Primary Care Provid er Encounter Details Date Type Department Care Team (Late st Contact Info) Description 06/26/2023 3:25 PM EDT Hospital Encounter [facility] [address] [place] [phone] Kena Michel CNP [address] [place] [phone] Social History Tobacco Use Types Packs/Day Years [...] right wrist or right hand. Kena Michel TOPOLOGY TEACHER IMG XR UPPER EXTREMITY Josefa l Result documented in this encounter Visit Diagnoses Not on filedocumented in this encounter Care Teams Millinery Worker Relationship Specialty Start Date End Date Mary Jean NP [address] [place] [address] PCP - General Family Medicine 03/10/21 documented as of this encounter Additional Source Comments The information contained in this document represents components of the legal health record. It is not the complete legal health record.[facility]
[2025-07-30 14:16] VITALS: BP 126/68; PULSE 65; O2SAT 97; BMI 33.1
--- NOTE | 2025-07-30 14:16 | A.OFFVIS_ITS ---
Vital Signs 07/30/25 14:16 Height 5 ft 9 in Weight 224 lb BMI 33.1 BP 126/68 Blood Pressure Location Rt brachial Pulse 65 Pulse Source Pulse Oximeter Pulse Oximetry (%) 97 Oxygen Delivery Method Room Air Intake Visit Reasons: Bronchitis Desk Lieutenant Required: No Accompanied by: Spouse Allergies No Known Allergies (No Known Allergies*) Allergy (Verified 07/30/25 14:21) Medication List - Last Reconciled 07/30/25 by Orin Garcia LPN albuterol sulfate 90 mcg/actuation (Ventolin HFA) 2 puffs inhalation Q6H PRN cholecalciferol (vitamin D3) 25 mcg PO DAILY ferrous sulfate 325 mg PO DAILY furosemide 20 mg PO DAILY losartan 50 mg PO DAILY metoprolol succinate ER 50 mg PO DAILY omeprazole 20 mg PO DAILY psyllium husk (Metamucil [facility] Fiber) 3.4 grams PO DAILY PRN rivaroxaban (Xarelto) 20 mg PO DAILY simvastatin 20 mg PO BEDTIME HPI HPI Bronchitis: Details: Aden is a pleasant 84 year old male, never smoker, with underlying atrial filbrillation, KAUR on supplemental oral iron, HTN, HLD, SVT s/p pacer, 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 He was initially sent from PCP for pulmonary evaluation for recurring pneumonia. He started with bronchitic symptoms at the end of January 2025, diagnosed with pneumonia in February and treated with multiple rounds of antibiotics including azithromycin followed by Augmentin and another course of azithromycin with minimal improvement. CXR initially reported resolving infiltrates/opacities in February however symptoms persisted and repeat CXR 04/24 revealed increasing prominence of RUL/RML opacities. He did undergo CT 05/31 which revealed predominantly right upper lobe opacity with appearance suggesting organizing pneumonia/resolving pneumonia with recommend follow-up chest x-ray to demonstrate resolution in 2-3 months. Ultimately patient was placed on Levaquin in addition to Doxycycline in May with complete resolution of cough however continues with dyspnea. At the last visit he was sent for PFT and has upcoming PFT scheduled next month. He is under the care of GI for KAUR and will have repeat blood work in three months after initiating oral iron supplementation. He notes h/o RAHEL severe AHI 59, lowest oxygen saturation 67%, previously under the care of [facility] sleep on ASV. His continues to report snoring despite use and questions appropriate pressures. JOSUÉ J&L. Today he presents to review in lab sleep study. [facility] Medical History On anticoagulant therapy On beta kelvin at home Hx of skin cancer, basal cell Elevated cholesterol Prostate cancer RAHEL on CPAP Port-site hernia Essential hypertension Persistent atrial fibrillation Pacemaker Surgical History History of incisional hernia repair S/P placement of cardiac pacemaker Hx of colonoscopy History of removal of cyst Hx of tonsillectomy H/O prostatectomy History of left shoulder replacement Family History Mother HTN (hypertension) Diabetes Father Heart attack Brother Asthma Paternal Grandfather Cancer Social History Are you a primary anesthesiologist and critical care to a significant other at home: No Do you presently have visiting nurse or other home services: No Alcohol intake: current Alcohol intake frequency: other Patient Tobacco Use Status: Never used Tobacco Advance Directives Date on File: 10/01/19 Physical Exam Vital Signs: Last Vital Signs Pulse 65 07/30/25 14:16 BP 126/68 07/30/25 14:16 Pulse Ox 97 07/30/25 14:16 Oxygen Delivery Method Room Air 07/30/25 14:16 BMI result Body Mass Index 33.1 Assessment & Plan Assessment & Plan (1) RAHEL on CPAP: Code(s): G47.33 - Obstructive sleep apnea (adult) (pediatric); Z99.89 - Dependence on other enabling machines and devices Category: Medical (2) Loud snoring: Code(s): R06.83 - Snoring Category: Medical (3) Dyspnea: Code(s): R06.00 - Dyspnea, unspecified Category: Medical Plan At this time Aden reports resolution of cough and continues to dyspnea on exertion. Will trial albuterol MDI while awaiting PFT which is scheduled next month. Reviewed in lab PSG which revealed borderline RAHEL without significant hypoxemia. Prior testing 2018 revealed complex RAHEL with AHI 59 and nocturnal hypoxemia lowest 67%. Patient currently using ASV and interested in transitioning to CPAP for mild RAHEL AHI 6 with no nocturnal hypoxemia or central events. Patient is requesting in lab titration study to ensure optimal pressures given prior h/o severe RAHLE and significant change in results over the last 7 years. He did note cessation of alcohol which could have been a contributing factor to prior findings. Will send for in lab titration study to ensure optimal results with CPAP therapy. There was also note of PLMD and will consider referral to sleep medicine however patient with KAUR and recently started on oral replacement. All questions were answered and patient is in agreement of plan. Will follow up to review results or sooner if needed. Orders: Orders RT PSG in-lab sleep titration Today G47.33 - Obstructive sleep apnea (adult) (pediatric), R06.83 - Snoring, Z99.89 - Dependence on other enabling machines and devices Medications: New albuterol sulfate 90 mcg/actuation (Ventolin HFA) 2 puffs inhalation Q6H PRN 1 ea 3RF wheezing Coding Level of Care Code Est Pt Level 4 (01039) Diagnoses RAHEL on CPAP G47.33; Z99.89 Loud snoring R06.83 Dyspnea R06.00
--- OUTSIDE RECORDS SUMMARY | 2025-07-30 17:47 | XMS_ITS | Encounter Summary ---
Author Organization [facility] Address [address] [address] Phone Care Team Providers Care Chalk Machine Operator Name Role Phone Jerod Peace MD Primary Care Provider Mary Juarez NP Primary Care Provid er Encounter Details Date Type Department Care Team (Late st Contact Info) Description 01/05/2019 Procedure Pass [facility]ovascular [facility] Interventional Radiology [address] [place] [address] Social History Tobacco Use Types Packs/Day Years [...] on filedocumented in this encounter Care Teams Chalk Machine Operator Relationship Specialty Start Date End Date Jerod Peace MD PCP - General 09/01/17 03/09/21 Mary Jean NP [address] [place] [id number] PCP - General Family Medicine 03/10/21 documented as of this encounter Additional Source Comments The information contained in this document represents components of the legal health record. It is not the complete legal health record.[facility]
--- OUTSIDE RECORDS SUMMARY | 2025-07-30 17:47 | XMS_ITS | Encounter Summary ---
Author Organization [facility] Address [address] [facility] [address] [place] [address] Phone Care Team Providers Care Records Management Coordinator Name Role Phone Jerod Peace MD Primary Care Provider Mary Juarez NP Primary Care Provid er Encounter Details Date Type Department Care Team (Late st Contact Info) Description 03/21/2019 Ancillary [facility] [address] [place] [address] Fan Trevizo MD [address] [place] [address] [email or web address] Social History Tobacco Use Types Packs/Day Years [...] on filedocumented in this encounter Care Teams Records Management Coordinator Relationship Specialty Start Date End Date Jerod Peace MD PCP - General 09/01/17 03/09/21 Mary Jean NP [address] [place] [address] [place] [id number] PCP - General Family Medicine 03/10/21 documented as of this encounter Additional Source Comments The information contained in this document represents components of the legal health record. It is not the complete legal health record.[facility]
--- OUTSIDE RECORDS SUMMARY | 2025-07-30 17:47 | XMS_ITS | Patient Health Record ---
Author Organization [facility] Address [address] [place] [address] Care Team Providers Care Machine Adjuster Leader Name Role Phone Mary Jean N.P Primary Care Provider Un available Dylon Gomez Jr Unavailable Allergies No Known Allergies Results Component Value Reference Range Notes Complete Blood Count Auto Di ff Reviewed date:03/13/2025 03:11:58 PM Interpretation: Performing Lab:[facility], [address] [place] [phone] Notes/Report: White Blood Count 7.4 4.8-10.8 X10*3/uL [...] Reviewed date:03/28/2025 11:05:53 AM Interpretation: Performing Lab:[facility], [address] [place] [phone] Notes/Report: White Blood Count 6.5 4.8-10.8 X10*3/uL [...] Reviewed date:03/28/2025 11:06:18 AM Interpretation: Performing Lab:[facility], [address] [place] [phone] Notes/Report: Iron 33 45-160 mcg/dL Slight Hemolys is.Interpret result with caution. Total Iron Binding Capacity 368 228-428 mcg/d L Percent Iron Saturation 9 15-50 % Unsaturated Iron Binding 335 Ferritin Reviewed date:03/28/2025 11:06:08 AM Interpretation: Performing Lab:[facility], [address] [place] [phone] Notes/Report: Ferritin 35 20-250 ng/mL Vitamin B12 Reviewed date:03/28/2025 11:06:01 AM Interpretation: Performing Lab:[facility], [address] [place] [phone] Notes/Report: Vitamin B12 434 200-900 pg/mL NORMAL 200-900 PG/ML INDETERMINATE 160-199 PG/ML DEFICIENT < 160 PG/ML Folate Reviewed date:03/28/2025 11:05:58 AM Interpretation: Performing Lab:[facility], [address] [place] [phone] Notes/Report: Folate 9.0 > or = 4.0 ng/mL Reference Values: > or = 4.0 ng/mL < 4.0 ng/mL suggests folate deficiency Methotrexate, aminopterin and folinic acid (leucovorin) are chemotherapeutic agents whose molecular structures are similar to folate; therefore, the [employer] folate assay cannot be used for patients using these drugs. SLIDE REVIEW Reviewed date:03/28/2025 11:05:43 AM Interpretation: Performing Lab:[facility], [address] [place] [phone] Notes/Report: SLIDE REVIEW VERIFIED FL upper GI w air Reviewed date:06/13/2025 07:54:12 AM Interpretation: Performing Lab: Notes/Report: [address] [address] Fluoroscopy Report Signed Patient: Timmy Mtz MR#: [id number] 91 : 1940 Acct:[id number] Age/Sex: 84 / M ADM Date: 06/11/25 Loc: HO.XRAY Attending Dr: Dylon Gomez MD Ordering Physician: Dylon Gomez MD Date of Service: 06/11/25 Procedure(s): FL upper GI w air Accession Number(s): [id number] cc: Dylon Gomez MD; Mary Jean CNP [...] 06/11/25 1511 DD/ 1000 TD/TT: 06/11/25 1014 Pourer Buggy Ladle: RICKY Reason For Referral No Information Medications [...] Problem Status W/U Status Risk Notes Problem [id number] Rectal bleeding (K62.5) Active confirmed Problem 731986235 Special screening for malignant neoplasms, colon (Z12.11) Active confirmed Problem Dysphagia (37821817) Dysphagia (R13.10) Active confirmed Problem Anemia (996316959) Anemia (D64.9) Active confirmed Vital Signs Temperature 97.5 degrees Fahrenheit 03/11/2025 Blood pressure diastolic 01 mm Hg 03/11/2025 Height 68.5 in 03/11/2025 Blood pressure systolic 001 mm Hg 03/11/2025 Weight 226.2 lbs 03/11/2025 BMI 33.89 kg/m2 03/11/2025 Encounters Encounter Location Date Provider Diagnosis [facility] [address] [facility] [address] [place] [phone] 03/11/2025 Dylon Gomez Jr Rectal bleeding K62.5 and Dysphagia R13.10 [facility] [address] [place] [address] 02/06/2025 Dylon Gomez Jr [facility] [address] [place], [place] [address] 02/13/2025 Dylon Gomez Jr [facility] [address] [place] [address] 02/14/2025 Dylon Bermanord Jr [facility] [address] [place] [address] 03/13/2025 Dylon Jason Jr Anemia D64.9 [facility] [address] [place] [address] 03/28/2025 Dylon Jason Anemia D64.9 [facility] [address] [place] [address] 06/13/2025 Dylon Gomez Jr Assessments Encounter Date [...] Insured Coverage Start Date Coverage End Date [facility] [address] [place] [address] [phone] [id number] TIMMY MTZ Self - patient is the [...]
--- OUTSIDE RECORDS SUMMARY | 2025-07-30 17:47 | XMS_ITS | Clinical Summary ---
Author Organization [facility] Address [address] [facility] [address] [place] [address] Phone Care Team Providers Care School Bus Driver/Custodian Name Role Phone Mary Jean NP Primary Care Provid er Allergies No known active allergies Medications Medication-Free Text Vitamin D Active metoprolol succinate (TOPROL-XL) 50 MG 24 hr tabletIndication s:ventricular rate control in atrial fibrillation Take 0.5 tablets by mouth daily. Indications: ventricular rate control in atrial fibrillation Active hydroCHLOROthiaz ubaldo (HYDRODIURIL) 25 MG tablet 25 mg. 1 tablet Orally Once a day Active ofloxacin (OCUFLOX) 0.3 % ophthalmic solution instill one drop three times a day into operative eye, start two days before surgery 1 9 Active omeprazole (PRILOSEC) 20 mg TbEC Take 20 mg by mouth daily before breakfast. Active losartan (COZAAR) 25 MG tablet Take 25 mg by mouth daily. 1 Active XARELTO 20 mg TabIndications:M edication refill TAKE 1 TABLET BY MOUTH EVERY DAY IN THE EVENING 90 tablet 3 2 Active furosemide (LASIX) 20 MG tablet Take 1 tablet by mouth every morning. 3 Active simvastatin (ZOCOR) 20 MG tablet 4 Active ofloxacin (FLOXIN) 0.3 % otic solution Place 5 drops into the left ear 2 (two) times a day. 1 mL 5 Active Active Problems Problem Noted Date Diagnosed Date Periodic limb movement disorder 06/26/2023 06/26/2023 Localized edema 03/21/2019 Assessment & Plan (06/26/2019 1:46 PM EDT): We again reviewed elevation and salt restriction. Although he does have reasonable edema on both sides the worst is on the left and that fits with the increased edema on that side. I have asked him to try knee-high 15 to 20 pound compression stockings and elevation. He would be a candidate for an ablation but that may not be necessary. Assessment & Plan (03/21/2019 10:24 AM EDT): This is progressive. He is at least moderate bilateral edema now although no skin breakdown. He has difficulty getting a compression stocking on his left leg because of his previous fracture. We discussed salt control and elevation of the leg during the day. I have also scheduled him for a bilateral full venous study to see if an ablation would be helpful should that be necessary. History of permanent cardiac pacemaker placement 03/20/2019 Assessment & Plan (06/26/2019 1:45 PM EDT): Functioning normally. Recent remote interrogation. Sick sinus syndrome 02/09/2019 Overview (03/20/2019): 02/2019 PPM MEDT SINGLE LEAD Assessment & Plan (03/21/2019 10:23 AM EDT): His device was interrogated today. He did have a short burst of a rapid tachycardia but only lasted several seconds and he was asymptomatic. He did undergo an echocardiogram which revealed normal systolic function and no significant valvular disease. He has remained in atrial fibrillation. Sleep apnea 09/27/2018 Essential hypertension 03/21/2018 Assessment & Plan (06/26/2019 1:44 PM EDT): Controlled on present therapy. No changes. Assessment & Plan (03/21/2019 10:24 AM EDT): Controlled on present therapy. No changes. Assessment & Plan (12/15/2018 9:44 AM EST): Remains controlled. Assessment & Plan (09/27/2018 9:58 AM EST): Controlled on present therapy. No changes. Assessment & Plan (03/22/2018 9:50 AM EDT): Well-controlled on present therapy. No medication changes. Hypercholesterolemia 03/21/2018 Assessment & Plan (06/26/2019 1:45 PM EDT): Lipid profile very similar with an LDL in the 90s, HDL in the 60s and triglycerides at 65.Creatinine is normal at 0.9 with BUN of 16 and a potassium of 5.0. Assessment & Plan (03/21/2019 10:25 AM EDT): Remains on a statin. Lipid profile from December was fine with an LDL in the 90s and HDL of almost 70. I will have these repeated before his next visit in June. Assessment & Plan (12/15/2018 9:44 AM EST): Statin unchanged. I will have labs drawn in about 3 months at his next visit. Assessment & Plan (09/27/2018 9:58 AM EST): LDL in the 90s with an HDL of 54 and triglycerides 138. Creatinine is normal at 1.0. Potassium 5.1. Assessment & Plan (03/22/2018 9:50 AM EDT): Last lipid profile was in December with an LDL of 68, HDL 63 and triglycerides 78. Renal function remained normal. H&H was 14 and 42. TSH was fine. Permanent atrial fibrillation 03/21/2018 Assessment & Plan (06/26/2019 1:44 PM EDT): Likely permanent. He is rate controlled and anticoagulated. He remains unaware of his dysrhythmia. Assessment & Plan (03/21/2019 10:23 AM EDT): Anticoagulated and rate controlled. Assessment & Plan (12/15/2018 9:44 AM EST): His ECG today confirms atrial fibrillation with a heart rate today in the mid 90s. No new ST or T wave changes. I think that best way to exclude a significant change in rhythm or rate as an explanation for these symptoms since they are so infrequent and brief would be an implantable loop recorder. I have arranged for that hopefully a week from today and that we will monitor him over the next several months to year until we determine an etiology. Assessment & Plan (09/27/2018 9:57 AM EST): Rate controlled and anticoagulated. Well-tolerated. There are no attempt to follow his pulse if he has another episode and if it becomes more frequent or associated with syncope he will require more intensive monitoring. For now no medication changes Assessment & Plan (03/22/2018 9:49 AM EDT): His ECG today confirms the onset of atrial fibrillation with a controlled response in the mid 70s.. He is maintained his anticoagulation without episodes of bleeding. At this juncture with him asymptomatic I think we should move to a rate control strategy. I have stopped his flecainide but other medications are unchanged. Supraventricular tachycardia 03/21/2018 Immunizations Immunization Administration Dates Next Due COVID-19 (Pre-09/05) Pfizer Vaccine, mRNA, PF ,12/27/2020 Family History Medical History Relation Comments CV disease Father 2 Diabetes mellitus Mother 2 Relation Status Comments Father 1 Father 2 Mother 1 Mother 2 Social History Tobacco Use Types Packs/Day Years Used Date Smoking Tobacco: Never Smokeless Tobacco: Never Tobacco Cessation:Counseling Given: Not Answered Alcohol Use Standard Drinks/Week Comments Yes 14 [...] on file Sexual Orientation Not on file Last Filed Vital Signs Vital Sign Reading Time Taken Comments Blood Pressure 129/73 12/26/2024 11:31 AM EST Pulse 73 12/26/2024 11:31 AM EST Temperature 36.6 C (97.9 F) 12/26/2024 11:31 AM EST Respiratory Rate 16 12/26/2024 11:31 AM EST Oxygen Saturation 99% 12/26/2024 11:31 AM EST Inhaled Oxygen Concentration - - Weight 108 kg (238 lb) 06/26/2023 3:09 PM EDT Height 172.7 cm (5' 8 ) 06/26/2023 3:09 PM EDT Body Mass Index 36.19 06/26/2023 3:09 PM EDT Plan of Treatment Health Maintenance Due Date Last Done Comments DEPRESSION SCREENING 1952 PNEUMOCOCCAL VACCINES (50+ years) (1 of 1 - PCV) 1991 ZOSTER VACCINES (1 of 2) 1991 RSV VACCINE (1 - 1-dose 75+ series) 2016 CREATININE LEVEL 06/25/2020 06/25/2019, 12/29/2018, 09/13/2018 POTASSIUM LEVEL 06/25/2020 06/25/2019, 12/29/2018, 09/13/2018 INFLUENZA VACCINE (#1) 2025 07/26/2024 BLOOD PRESSURE 06/25/2025 12/26/2024 COVID-19 VACCINE ( - 2024-2 6 season) 2025 10/27/2021, 01/17/2021, 12/27/2020 Adult Td,Tdap Booster 06/03/2034 06/03/2024 HEPATITIS A VACCINES Aged Out No long er eligible based on patient's age to complete this topic HIB VACCINES Aged Out No longer eligi ble based on patient's age to complete this topic MENINGOCOCCAL VACCINES (ACWY) Aged Out No longer eligible based on patient's age to complete this topic MENINGOCOCCAL VACCINES (B) Aged Out N o longer eligible based on patient's age to complete this topic Medical Devices Implanted Type Area Veterinary Technician Device Identifier Shelf Expiration Date Model / Serial / Lot Reveal Linq Loop Recorder System - [id number] Implanted:Qty : 1 on 01/05/2019 by Fan Trevizo MD at [facility] Implantable Monitor [employer] [id number] 12/11/2019 [id number] / [id number] / Procedures Procedure Name Priority Date/Time Associated Diagnosis Comments BASIC METABOLIC PANEL Routine 06/25/2019 9:42 AM EDT Essential hypertension Hypercholesterolemi a from Last 3 Months or Most Recently Relevant to Health Maintenance Results * Basic metabolic panel (06/25/2019 9:42 AM EDT) SODIUM 140 133 - 146 mmol/L [facility] CHLORIDE 100 96 - 108 mmol/L [facility] POTASSIUM 5.0 3.3 - 5.1 mmol/L [facility] CO2 27 21 - 35 mmol/L [facility] BUN 16 6 - 19 mg/dL [facility] CREATININE 0.90 0.5 - 1.5 mg/dL [facility] GLUCOSE 88 70 - 99 mg/dL [facility] CALCIUM 9.5 8.4 - 10.3 mg/dL [facility] EGFR 82 >59 mL/min/1.7 3m2 [facility] Comment:If patient is black, multiply result by 1.159. Estimated glomerular filtration rate calculated using the CKD-EPI equation. ANION GAP 18 10 - 20 mmol/L [facility] Blood 06/25/2019 9:42 AM EDT 06/25/2019 9:43 AM EDT us Jn Martinez MD LAB BLOOD ORDERABLES Final Resu lt [address] [address] from Last 3 Months or Most Recently Relevant to Health Maintenance Insurance MEDICARE PART A & B MEDICARE POS PPO REPLACEMENT MEDICARE PART A & B MEDICARE POS PPO REPLACEMENT MEDICARE PART A & B [place] [place] MED[place] POS PPO REPLACEMENT MEDICARE PART A & B [facility] MEDICARE POS PPO REPLACEMENT MEDICARE PART A & B [place] MEDIC[place] POS PPO REPLACEMENT MEDICARE PART A & B MEDICARE POS PPO REPLACEMENT MEDICARE PART A & B Member Subscriber Plan / Payer (Ef fective 2006-Present) Name:Aden Gregorio Member ID:[id number] Relation to Subscriber:Self Name:Aden Gregorio Subscriber ID:[id number] Payer ID:[id number] Group ID:Not on file Type:Medicare Address: [employer] [address] [id number] [place] MEDICARE POS PPO REPLACEMENT MEDICARE PART A & B [place] [place] MEDICARE POS PPO REPLACEMENT MEDICARE PART A & B [place] MEDIC[place] POS PPO REPLACEMENT Advance Directives For more information, please contact: [phone] (9AM - 5PM [place], Tuesday-Tuesday) * Full Code (Presumed) (Latest Code Status on File) Date Activated Date Inactivated Comments 01/05/2019 8:01 AM 01/05/2019 12:12 PM Care Teams School Bus Driver/Custodian Relationship Specialty Start Date End Date Mary Jean NP [address] [place] [address] PCP - General Family Medicine 03/10/21 Additional Source Comments The information contained in this document represents components of the legal health record. It is not the complete legal health record.[facility]
--- OUTSIDE RECORDS SUMMARY | 2025-07-30 17:47 | XMS_ITS | Encounter Summary ---
Author Organization [facility] Address [address] [address] Phone Care Team Providers Care Music Coordinator Name Role Phone Jerod Peace MD Primary Care Provider Mary Juarez NP Primary Care Provid er Encounter Details Date Type Department Care Team (Late st Contact Info) Description 03/21/2019 Ancillary Orders Non-Invasive Cardiology [address] [place] [address] Fan Trevizo MD [address] [place] [address] [email or web address] Sick sinus syndrome Social History Tobacco Use Types Packs/Day Years [...] documented as of this encounter Visit Diagnoses Diagnosis Sick sinus syndrome Sinoatrial node dysfunction documented in this encounter Care Teams Music Coordinator Relationship Specialty Start Date End Date Jerod Peace MD PCP - General 09/01/17 03/09/21 Mary Jean NP [address] [place] [address] PCP - General Family Medicine 03/10/21 documented as of this encounter Additional Source Comments The information contained in this document represents components of the legal health record. It is not the complete legal health record.[facility]
--- OUTSIDE RECORDS SUMMARY | 2025-07-30 17:47 | XMS_ITS | Encounter Summary ---
Author Organization [facility] Address [address] [facility] [address] [place] [address] Phone Care Team Providers Care Shotblaster Name Role Phone Jerod Peace MD Primary Care Provider Mary Juarez NP Primary Care Provid er Encounter Details Date Type Department Care Team (Late st Contact Info) Description 10/30/2019 Ancillary Orders Non-Invasive Cardiology [address] [place] [address] Fan Trevizo MD [address] [place] [address] [email or web address] Sick sinus syndrome Social History Tobacco Use [...] on file documented as of this encounter Results * DEVICE CHECK: PPM REMOTE INTERROGATION WITH OPTICAL EFFECTS LINE UP PERSON REVIEW (11/20/2019 1:54 PM EST) Narrative Fan Trevizo MD - 11/28/2019 3:28 PM EST Reason for appointment: Remote pacemaker interrogation HPI: Routine 3 month remote pacemaker interrogation. No device related complaints. Indication for device: SSS. Examination: Device type: Pacemaker In Process Inspector: [employer] Mode: VVI LRL/UPL: 60/- bpm High V rates: 1 Thresholds, impedances, and sensing stable. AF/AT: Patient is currently taking Xarelto daily. Ventricular pacin.1% Battery: 14.8 yrs Additional comments: Device functioning appropriately. Normal device function. Patient to follow-up for continued monitoring every 3 months. Report prepared by Nelda Sandoval RN us Fan Trevizo MD [facility] ORDER MARJORIE Final Result documented in this encounter Visit Diagnoses Diagnosis Sick sinus syndrome Sinoatrial node dysfunction Sick sinus syndrome Sinoatrial node dysfunction documented in this encounter Care Teams Shotblaster Relationship Specialty Start Date End Date Jerod Peace MD PCP - General 09/01/17 03/09/21 Mary Jean NP [address] [place] [address] PCP - General Family Medicine 03/10/21 documented as of this encounter Additional Source Comments The information contained in this document represents components of the legal health record. It is not the complete legal health record.[facility]
--- OUTSIDE RECORDS SUMMARY | 2025-07-30 17:47 | XMS_ITS | Encounter Summary ---
Author Organization [facility] Address [address] [address] Phone Care Team Providers Care Floor Technician Name Role Phone Jerod Peace MD Primary Care Provider Mary Juarez NP Primary Care Provid er Encounter Details Date Type Department Care Team (Late st Contact Info) Description 11/25/2020 Procedure Pass Non-Invasive Cardiology [address] [place] [address] Social History Tobacco Use Types Packs/Day Years [...] on filedocumented in this encounter Care Teams Floor Technician Relationship Specialty Start Date End Date Jerod Peace MD PCP - General 09/01/17 03/09/21 Mary Jean NP [address] [place] [address] PCP - General Family Medicine 03/10/21 documented as of this encounter Additional Source Comments The information contained in this document represents components of the legal health record. It is not the complete legal health record.[facility]
--- OUTSIDE RECORDS SUMMARY | 2025-07-30 17:47 | XMS_ITS | Encounter Summary ---
Author Organization [facility] Address [address] [facility] [address] [place] [address] Phone Care Team Providers Care Photography Assistant Name Role Phone Jerod Peace MD Primary Care Provider Mary Juarez NP Primary Care Provid er Encounter Details Date Type Department Care Team (Late st Contact Info) Description 10/25/2020 Procedure Pass Non-Invasive Cardiology [address] [place] [address] Social History Tobacco Use Types Packs/Day Years [...] on filedocumented in this encounter Care Teams Photography Assistant Relationship Specialty Start Date End Date Jerod Peace MD PCP - General 09/01/17 03/09/21 Mary Jean NP [address] [place] [address] PCP - General Family Medicine 03/10/21 documented as of this encounter Additional Source Comments The information contained in this document represents components of the legal health record. It is not the complete legal health record.[facility]
--- OUTSIDE RECORDS SUMMARY | 2025-07-30 17:48 | XMS_ITS | Encounter Summary ---
Author Organization [facility] Address [address] [address] Phone Care Team Providers Care Sales Merchandise Associate Name Role Phone Jerod Peace MD Primary Care Provider Mary Juarez NP Primary Care Provid er Encounter Details Date Type Department Care Team (Late st Contact Info) Description 01/05/2019 Procedure Pass [facility] [address] [place] [address] Social History Tobacco Use Types Packs/Day Years [...] on filedocumented in this encounter Care Teams Sales Merchandise Associate Relationship Specialty Start Date End Date Jerod Peace MD PCP - General 09/01/17 03/09/21 Mary Jean NP [address] [place] [address] PCP - General Family Medicine 03/10/21 documented as of this encounter Additional Source Comments The information contained in this document represents components of the legal health record. It is not the complete legal health record.[facility]
== END 2025-07-30 14:49 | disposition home or self-care (01) ==
LOC: HO.HPSW 14:01
PROVIDERS: PCP Nurse Practitioner Primary Care; Visit Provider Nurse Practitioner Family
DX: G47.33 Obstructive sleep apnea (adult) (pediatric) (principal); Z99.89 Dependence on other enabling machines and devices; R06.83 Snoring; R06.00 Dyspnea, unspecified
CPT/HCPCS: 99214

== ENCOUNTER → 2025-07-30 14:00 | Outpatient (BNVA) | payer MEDICARE, SELFPAY | PROVIDERS: PCP Nurse Practitioner Primary Care; Visit Provider Nurse Practitioner Family | DX: G47.33 Obstructive sleep apnea (adult) (pediatric) (principal); Z99.89 Dependence on other enabling machines and devices; R06.83 Snoring; R06.00 Dyspnea, unspecified | CPT/HCPCS: 99212 ==

== ENCOUNTER → 2025-08-03 23:59 | Outpatient (BNV) | payer MEDICARE, SELFPAY ==
--- NOTE | 2025-08-08 08:46 | MHC.OFFVIS ---
Intake Visit Reasons: Remote device check- Medtronic Allergies No Known Allergies (No Known Allergies*) Allergy (Verified 07/30/25 14:21) [facility] Medical History On anticoagulant therapy On beta kelvin at home Hx of skin cancer, basal cell Elevated cholesterol Prostate cancer RAHEL on CPAP Port-site hernia Essential hypertension Persistent atrial fibrillation Pacemaker Surgical History History of incisional hernia repair S/P placement of cardiac pacemaker Hx of colonoscopy History of removal of cyst Hx of tonsillectomy H/O prostatectomy History of left shoulder replacement Family History Mother HTN (hypertension) Diabetes Father Heart attack Brother Asthma Paternal Grandfather Cancer Social History Are you a primary manager intensive care to a significant other at home: No Do you presently have visiting nurse or other home services: No Alcohol intake: current Alcohol intake frequency: other Patient Tobacco Use Status: Never used Tobacco Advance Directives Date on File: 10/01/19 Office Procedures Cardiac Device Check Cardiac Device Check Details: Date of service- 08/03/2025 ; Battery life >9 years; normal lead parameters; CLEANER GREASER 35%; no significant arrhythmias. Overall normal device function. [id number] Cardiac Device Interrogation, pacemaker Procedure code (CPT) selection complete Assessment & Plan Assessment & Plan (1) Pacemaker: Code(s): Z95.0 - Presence of cardiac pacemaker Category: Medical (2) Persistent atrial fibrillation: Code(s): I48.19 - Other persistent atrial fibrillation Category: Medical Plan x Coding Level of Care Code Procedure Only Diagnoses Pacemaker Z95.0 Persistent atrial fibrillation I48.19 CPT Codes Cardiac Device Check - Cardiac Device 12: [id number] Cardiac Device Interrogation, pacemaker ([id number])
== END ==
PROVIDERS: PCP Nurse Practitioner Primary Care; Visit Provider Internal Medicine
DX: I48.19 Other persistent atrial fibrillation (principal); Z95.0 Presence of cardiac pacemaker
CPT/HCPCS: 93294

== ENCOUNTER 2025-08-05 07:42 | Outpatient (REF) | payer MEDICARE, SELFPAY ==
--- OUTSIDE RECORDS SUMMARY | 2023-06-26 15:24 | XMS_ITS | Encounter Summary ---
Author Organization [facility] Address [address] [place] [phone] Phone Care Team Providers Care Gleason Operator Name Role Phone Mary Jean TOPOGRAPHY TECHNICIAN Primary Care Provid er Encounter Details Date Type Department Care Team (Late st Contact Info) Description 06/26/2023 3:24 PM EDT Hospital Encounter [facility] [address] [place] [phone] Kena Michel CNP [address] [place] [phone] Social History Tobacco Use Types Packs/Day Years [...] right wrist or right hand. Kena Michel ZONING ASSISTANT IMG XR UPPER EXTREMITY Josefa l Result documented in this encounter Visit Diagnoses Not on filedocumented in this encounter Care Teams Gleason Operator Relationship Specialty Start Date End Date Mary Jean NP [address] [place] [address] PCP - General Family Medicine 03/10/21 documented as of this encounter Additional Source Comments The information contained in this document represents components of the legal health record. It is not the complete legal health record.[facility]
--- OUTSIDE RECORDS SUMMARY | 2023-06-26 15:24 | XMS_ITS | Encounter Summary ---
Author Organization [facility] Address [address] [place] [address] Phone Care Team Providers Care Bariatric Coordinator Name Role Phone Mary Jean INDUSTRY OPERATIONS INVESTIGATOR Primary Care Provid er Encounter Details Date Type Department Care Team (Late st Contact Info) Description 06/26/2023 3:24 PM EDT Hospital Encounter [facility] [address] [place] [phone] Kena Michel CNP [address] [place] [phone] [email or web address] Social History Tobacco Use Types Packs/Day Years [...] IMPRESSION: No displaced rib fracture. Kena Michel SPONGE HOOKER IMG XR CHEST Final Resul t documented in this encounter Visit Diagnoses Not on filedocumented in this encounter Care Teams Bariatric Coordinator Relationship Specialty Start Date End Date Mary Jean NP [address] [place] [address] PCP - General Family Medicine 03/10/21 documented as of this encounter Additional Source Comments The information contained in this document represents components of the legal health record. It is not the complete legal health record.[facility]
--- OUTSIDE RECORDS SUMMARY | 2023-06-26 15:25 | XMS_ITS | Encounter Summary ---
Author Organization [facility] Address [address] [place] [address] Phone Care Team Providers Care Litigation Support Analyst Name Role Phone Mary Jean RESTRICTIVE PREPARATION OPERATOR Primary Care Provid er Encounter Details Date Type Department Care Team (Late st Contact Info) Description 06/26/2023 3:25 PM EDT Hospital Encounter [facility] [address] [place] [phone] Kena Michel CNP [address] [place] [phone] Social History Tobacco Use Types Packs/Day Years [...] identified. Diffuse soft tissue edema. Procedure Note Rdoolfo Ch MD - 06/26/2023 XR WRIST 3 [...] right wrist or right hand. Kena Michel WATER TEAM LEADER IMG XR UPPER EXTREMITY Josefa l Result documented in this encounter Visit Diagnoses Not on filedocumented in this encounter Care Teams Litigation Support Analyst Relationship Specialty Start Date End Date Mary Jean NP [address] [place] [address] PCP - General Family Medicine 03/10/21 documented as of this encounter Additional Source Comments The information contained in this document represents components of the legal health record. It is not the complete legal health record.[facility]
--- OUTSIDE RECORDS SUMMARY | 2025-08-05 07:46 | XMS_ITS | Encounter Summary ---
Author Organization [facility] Address [address] [facility] [address] [place] [address] Phone Care Team Providers Care Remnant Sorter Name Role Phone Jerod Peace MD Primary Care Provider Mary Juarez NP Primary Care Provid er Encounter Details Date Type Department Care Team (Late st Contact Info) Description 03/21/2019 Ancillary [facility] [address] [place] [address] Fan Trevizo MD [address] [place] [address] [email or web address] Social History Tobacco Use Types Packs/Day Years [...] on filedocumented in this encounter Care Teams Remnant Sorter Relationship Specialty Start Date End Date Jerod Peace MD PCP - General 09/01/17 03/09/21 Mary Jean NP [address] [place] [address] [place] [address] PCP - General Family Medicine 03/10/21 documented as of this encounter Additional Source Comments The information contained in this document represents components of the legal health record. It is not the complete legal health record.[facility]
--- OUTSIDE RECORDS SUMMARY | 2025-08-05 07:46 | XMS_ITS | Patient Health Record ---
Author Organization [facility] Address [address] [place] [address] Care Team Providers Care Tile Applicator Name Role Phone Mary Jean N.P Primary Care Provider Un available Dylon Gomez Jr Unavailable Allergies No Known Allergies Results Component Value Reference Range Notes Complete Blood Count Auto Di ff Reviewed date:03/13/2025 03:11:58 PM Interpretation: Performing Lab:[facility], [address] [place] [phone] Notes/Report: White Blood Count 7.4 4.8-10.8 X10*3/uL [...] ff Reviewed date:03/28/2025 11:05:53 AM Interpretation: Performing Lab:[facility], [address] [place] [phone] Notes/Report: White Blood Count 6.5 4.8-10.8 X10*3/uL [...] PROFILE Reviewed date:03/28/2025 11:06:18 AM Interpretation: Performing Lab:[facility], [address] [place] [phone] Notes/Report: Iron 33 45-160 mcg/dL Slight Hemolys is.Interpret result with caution. Total Iron Binding Capacity 368 228-428 mcg/d L Percent Iron Saturation 9 15-50 % Unsaturated Iron Binding 335 Ferritin Reviewed date:03/28/2025 11:06:08 AM Interpretation: Performing Lab:[facility], [address] [place] [phone] Notes/Report: Ferritin 35 20-250 ng/mL Vitamin B12 Reviewed date:03/28/2025 11:06:01 AM Interpretation: Performing Lab:[facility], [address] [place] [phone] Notes/Report: Vitamin B12 434 200-900 pg/mL NORMAL 200-900 PG/ML INDETERMINATE 160-199 PG/ML DEFICIENT < 160 PG/ML Folate Reviewed date:03/28/2025 11:05:58 AM Interpretation: Performing Lab:[facility], [address] [place] [phone] Notes/Report: Folate 9.0 > or = 4.0 ng/mL Reference Values: > or = 4.0 ng/mL < 4.0 ng/mL suggests folate deficiency Methotrexate, aminopterin and folinic acid (leucovorin) are chemotherapeutic agents whose molecular structures are similar to folate; therefore, the Senior Java J2Ee Developer folate assay cannot be used for patients using these drugs. SLIDE REVIEW Reviewed date:03/28/2025 11:05:43 AM Interpretation: Performing Lab:[facility], [address] [place] [phone] Notes/Report: SLIDE REVIEW VERIFIED FL upper GI w air Reviewed date:06/13/2025 07:54:12 AM Interpretation: Performing Lab: Notes/Report: [address] [address] Fluoroscopy Report Signed Patient: Timmy Mtz MR#: [id number] 91 : 1940 Acct:[id number] Age/Sex: 84 / M ADM Date: 06/11/25 Loc: HO.XRAY Attending Dr: Dylon Gomez MD Ordering Physician: Dylon Gomez MD Date of Service: 06/11/25 Procedure(s): FL upper GI w air Accession Number(s): [id number] cc: Dylon Gomez MD; Mary Jean CNP [...] 06/11/25 1511 DD/ 1000 TD/TT: 06/11/25 1014 User Interface Developer: RICKY Reason For Referral No Information Medications [...] Problem Status W/U Status Risk Notes Problem 10214831 Rectal bleeding (K62.5) Active confirmed Problem 171900327 Special screening for malignant neoplasms, colon (Z12.11) Active confirmed Problem Dysphagia (72219700) Dysphagia (R13.10) Active confirmed Problem Anemia (000851715) Anemia (D64.9) Active confirmed Vital Signs Temperature 97.5 degrees Fahrenheit 03/11/2025 Blood pressure diastolic 01 mm Hg 03/11/2025 Height 68.5 in 03/11/2025 Blood pressure systolic 001 mm Hg 03/11/2025 Weight 226.2 lbs 03/11/2025 BMI 33.89 kg/m2 03/11/2025 Encounters Encounter Location Date Provider Diagnosis [facility] [address] [facility] [address] [place] [address] 03/11/2025 Dylon Gomez Jr Rectal bleeding K62.5 and Dysphagia R13.10 [facility] [address] [place] [address] 02/06/2025 Dylon Gomez Jr [facility] [address] [place], [place] [address] 02/13/2025 Dylon Gomez Jr [facility] [address] [place] [address] 02/14/2025 Dylon Bermanord Jr [facility] [address] [place] [address] 03/13/2025 Dylon Jason Jr Anemia D64.9 [facility] [address] [place] [address] 03/28/2025 Dylon Jason Anemia D64.9 [facility] [address] [place] [address] 06/13/2025 Dylon Gomez Jr Assessments Encounter Date [...] 03/13/2025 IRON + IBC (FE) 03/28/2025 FERRITIN 03/28/2025 FERRITIN 03/13/2025 B12 03/13/2025 FOLATE 03/13/2025 CBC w/o DIFF 03/28/2025 CBC w/o DIFF 03/11/2025 CBC w/o DIFF 03/13/2025 XR GI SERIES 03/11/2025 Future Test Test Name Order Date COLONOSCOPY 07/24/2015 COLONOSCOPY 01/10/2019 Insurance Providers Payer Name Payer Address Payer Phone Subscriber Number Group Number Insured Name Patient Relationship to Insured Coverage Start Date Coverage End Date [facility] [address] [place] [address] [id number] TIMMY MTZ Self - patient is the [...]
--- OUTSIDE RECORDS SUMMARY | 2025-08-05 07:46 | XMS_ITS | Encounter Summary ---
Author Organization [facility] Address [address] [address] Phone Care Team Providers Care Railroad Passenger Agent Name Role Phone Jerod Peace MD Primary Care Provider Mary Juarez NP Primary Care Provid er Encounter Details Date Type Department Care Team (Late st Contact Info) Description 01/05/2019 Procedure Pass [facility] Cardiovascular And Interventional Radiology [address] [place] [address] Social History Tobacco Use Types Packs/Day Years [...] on filedocumented in this encounter Care Teams Railroad Passenger Agent Relationship Specialty Start Date End Date Jerod Peace MD PCP - General 09/01/17 03/09/21 Mary eJan NP [address] [place] [address] PCP - General Family Medicine 03/10/21 documented as of this encounter Additional Source Comments The information contained in this document represents components of the legal health record. It is not the complete legal health record.[facility]
--- OUTSIDE RECORDS SUMMARY | 2025-08-05 07:46 | XMS_ITS | Encounter Summary ---
Author Organization [facility] Address 399 [facility] [address] [place] [address] Phone Care Team Providers Care Guest Relation Officer Name Role Phone Jerod Peace MD Primary Care Provider Mary Juarez NP Primary Care Provid er Encounter Details Date Type Department Care Team (Late st Contact Info) Description 10/30/2019 Ancillary Orders Non-Invasive Cardiology [address] [place] [address] Fan Trevizo MD [address] [place] [address] [email or web address] Sick sinus syndrome Social History Tobacco [...] * DEVICE CHECK: PPM REMOTE INTERROGATION WITH DEVELOPMENTAL ELECTRONICS ASSEMBLER REVIEW (11/20/2019 1:54 PM EST) Narrative Fan Trevizo MD - 11/28/2019 3:28 PM EST Reason for appointment: Remote pacemaker interrogation HPI: Routine 3 month remote pacemaker interrogation. No device related complaints. Indication for device: SSS. Examination: Device type: Pacemaker Automobile Mechanic Motor: Medtronic Mode: VVI LRL/UPL: 60/- bpm High [...] dysfunction documented in this encounter Care Teams Guest Relation Officer Relationship Specialty Start Date End Date Jerod Peace MD PCP - General 09/01/17 03/09/21 Mary Jean NP [address] [place] [address] PCP - General Family Medicine 03/10/21 documented as of this encounter Additional Source Comments The information contained in this document represents components of the legal health record. It is not the complete legal health record.[facility]
--- OUTSIDE RECORDS SUMMARY | 2025-08-05 07:46 | XMS_ITS | Encounter Summary ---
Author Organization [facility] Address [address] [address] Phone Care Team Providers Care Wetlands Technician Name Role Phone Jerod Peace MD Primary Care Provider Mary Juarez NP Primary Care Provid er Encounter Details Date Type Department Care Team (Late st Contact Info) Description 03/21/2019 Ancillary Orders Non-Invasive Cardiology [address] [place] [address] Fan Trevizo MD [address] [place] [address] [email or web address] Sick sinus syndrome Social History Tobacco [...] dysfunction documented in this encounter Care Teams Wetlands Technician Relationship Specialty Start Date End Date Jerod Peace MD PCP - General 09/01/17 03/09/21 Mary Jean NP [address] [place] [address] PCP - General Family Medicine 03/10/21 documented as of this encounter Additional Source Comments The information contained in this document represents components of the legal health record. It is not the complete legal health record.[facility]
--- OUTSIDE RECORDS SUMMARY | 2025-08-05 07:46 | XMS_ITS | Encounter Summary ---
Author Organization [facility] Address [address] [address] Phone Care Team Providers Care Rail Bonder Name Role Phone Jerod Peace MD Primary Care Provider Mary Juarez NP Primary Care Provid er Encounter Details Date Type Department Care Team (Late st Contact Info) Description 11/25/2020 Procedure Pass Non-Invasive Cardiology [address] [place] [address] Social History Tobacco Use Types Packs/Day Years [...] on filedocumented in this encounter Care Teams Rail Bonder Relationship Specialty Start Date End Date Jerod Peace MD PCP - General 09/01/17 03/09/21 Mary Jean NP [address] [place] [address] PCP - General Family Medicine 03/10/21 documented as of this encounter Additional Source Comments The information contained in this document represents components of the legal health record. It is not the complete legal health record.[facility]
--- OUTSIDE RECORDS SUMMARY | 2025-08-05 07:46 | XMS_ITS | Encounter Summary ---
Author Organization [facility] Address 399 [facility] [address] [place] [address] Phone Care Team Providers Care Powder Core Tester Name Role Phone Jerod Peace MD Primary Care Provider Mary Juarez NP Primary Care Provid er Encounter Details Date Type Department Care Team (Late st Contact Info) Description 10/25/2020 Procedure Pass Non-Invasive Cardiology [address] [place] [address] Social History Tobacco Use Types Packs/Day Years [...] on filedocumented in this encounter Care Teams Powder Core Tester Relationship Specialty Start Date End Date Jerod Peace MD PCP - General 09/01/17 03/09/21 Mary Jean NP [address] [place] [address] PCP - General Family Medicine 03/10/21 documented as of this encounter Additional Source Comments The information contained in this document represents components of the legal health record. It is not the complete legal health record.[facility]
--- OUTSIDE RECORDS SUMMARY | 2025-08-05 07:46 | XMS_ITS | Clinical Summary ---
Author Organization [facility] Address 399 [facility] [address] [place] [address] Phone Care Team Providers Care Auctioneer Automobile Name Role Phone Mary Jean NP Primary [...] this topic Medical Devices Implanted Type Area Stemhole Borer Device Identifier Shelf Expiration Date Model / Serial / Lot Reveal Linq Loop Recorder System - [id number] Implanted:Qty : 1 on 01/05/2019 by Fan Trevizo MD at [facility] Implantable Monitor [employer] [id number] 12/11/2019 LNQ11 / [id number] S / Procedures Procedure Name Priority Date/Time Associated Diagnosis Comments BASIC METABOLIC PANEL Routine 06/25/2019 9:42 AM EDT Essential hypertension Hypercholesterolemi a from Last 3 Months or Most Recently Relevant to Health Maintenance Results * Basic metabolic panel (06/25/2019 9:42 AM EDT) SODIUM 140 133 - 146 mmol/L [facility] CHLORIDE 100 96 - 108 mmol/L [facility] POTASSIUM 5.0 3.3 - 5.1 mmol/L [facility] CO2 27 21 - 35 mmol/L [facility] BUN 16 6 - 19 mg/dL [facility] CREATININE 0.90 0.5 - 1.5 mg/dL [facility] GLUCOSE 88 70 - 99 mg/dL [facility] CALCIUM 9.5 8.4 - 10.3 mg/dL [facility] EGFR 82 >59 mL/min/1.7 3m2 [facility] Comment:If patient is black, multiply result by 1.159. Estimated glomerular filtration rate calculated using the CKD-EPI equation. ANION GAP 18 10 - 20 mmol/L [facility] Blood 06/25/2019 9:42 AM EDT 06/25/2019 9:43 AM EDT us Jn Martinez MD LAB BLOOD ORDERABLES Final Resu lt [address] [address] from Last 3 Months or Most Recently Relevant to Health Maintenance Insurance MEDICARE PART A & B MEDICARE POS PPO REPLACEMENT MEDICARE PART A & B MEDICARE POS PPO REPLACEMENT MEDICARE PART A & B [facility] [place] MED[place] POS PPO REPLACEMENT MEDICARE PART A & B [facility] MEDICARE POS PPO REPLACEMENT MEDICARE PART A & B [place] [place] MEDIC[place] POS PPO REPLACEMENT MEDICARE PART A & B MEDICARE POS PPO REPLACEMENT MEDICARE PART A & B Member Subscriber Plan / Payer (Ef fective 2006-Present) Name:Aden Gregorio Member ID:[id number] Relation to Subscriber:Self Name:Aden Gregorio Subscriber ID:[id number] Payer ID:[id number] Group ID:Not on file Type:Medicare Address: [employer] [address] [id number] [employer] [place] MEDICARE POS PPO REPLACEMENT MEDICARE PART A & B [employer] [place] MEDICARE POS PPO REPLACEMENT MEDICARE PART A & B [employer] [place] MEDIC[place] POS PPO REPLACEMENT Advance Directives For more information, please contact: [phone] (9AM - 5PM [place], Tuesday-Tuesday) * Full Code (Presumed) (Latest Code Status on File) Date Activated Date Inactivated Comments 01/05/2019 8:01 AM 01/05/2019 12:12 PM Care Teams Auctioneer Automobile Relationship Specialty Start Date End Date Mary Jean NP [address] [place] [address] PCP - General Family Medicine 03/10/21 Additional Source Comments The information contained in this document represents components of the legal health record. It is not the complete legal health record.[facility]
--- OUTSIDE RECORDS SUMMARY | 2025-08-05 07:47 | XMS_ITS | Encounter Summary ---
Author Organization [facility] Address [address] [address] Phone Care Team Providers Care Glue Bone Drier Name Role Phone Jerod Peace MD Primary Care Provider Mary Juarez NP Primary Care Provid er Encounter Details Date Type Department Care Team (Late st Contact Info) Description 01/05/2019 Procedure Pass [facility] Cardiovascular And Interventional Radiology [address] [place] [address] Social History Tobacco Use Types Packs/Day Years [...] on filedocumented in this encounter Care Teams Glue Bone Drier Relationship Specialty Start Date End Date Jerod Peace MD PCP - General 09/01/17 03/09/21 Mary Jean NP [address] [place] [address] PCP - General Family Medicine 03/10/21 documented as of this encounter Additional Source Comments The information contained in this document represents components of the legal health record. It is not the complete legal health record.[facility]
[2025-08-05 08:43] LABS: Hemoglobin A1C 163.6098 umol/L; Total Hemoglobin (HGBA1C) 3683.8672 umol/L
[2025-08-05 09:47] LABS: Anion Gap 11 (12-20); Blood Urea Nitrogen 16 mg/dL (9-16); Calcium 9.1 mg/dL (8.4-10.2); Carbon Dioxide 25 mmol/L (22-29); Chloride 109 mmol/L (96-108); Cholesterol 139 mg/dL (<200); Estimated Glomerular Filt Rate > 60; HDL Cholesterol 39 mg/dL (>40); Potassium 5.5 mmol/L (3.3-5.1); Sodium 139 mmol/L (135-145); Triglycerides 60 mg/dL (<150)
== END 2025-08-05 07:43 | disposition home or self-care (01) ==
LOC: HO.LAB 07:42
PROVIDERS: PCP Nurse Practitioner Primary Care; Visit Provider Registered Nurse
DX: I10 Essential (primary) hypertension (principal); E78.5 Hyperlipidemia, unspecified; F73 Profound intellectual disabilities; Z13.1 Encounter for screening for diabetes mellitus
CPT/HCPCS: 36415; 80048; 80061; 83036

== ENCOUNTER 2025-08-16 07:35 | Outpatient (REF) | payer MEDICARE, SELFPAY ==
[2025-08-16 08:26] LABS: Hematocrit 44.8 % (42.0-52.0); Hemoglobin 14.5 g/dl (14.0-18.0); Mean Corpuscular HGB Conc 32.4 g/dl (31.0-36.0); Mean Corpuscular Hemoglobin 27.0 pg (27.0-33.0); Mean Corpuscular Volume 83.3 fL (80.0-98.0); NRBC Abs Auto 0.000 X10*3/uL (0.0-0.012); NRBC Pct Auto 0.0 /100WBC (0.0-0.2); Platelet Count 232 X10*3/uL (160-400); Red Blood Count 5.38 X10*6/uL (4.60-5.80); White Blood Count 6.3 X10*3/uL (4.8-10.8)
[2025-08-16 09:17] LABS: Ferritin 91 ng/mL (20-250); Iron 45 mcg/dL (45-160); Percent Iron Saturation 14 % (15-50); Total Iron Binding Capacity 318 mcg/dL (228-428); Unsaturated Iron Binding 273 ug/dL
== END 2025-08-16 07:36 | disposition home or self-care (01) ==
LOC: HO.LAB 07:35
PROVIDERS: PCP Nurse Practitioner Primary Care; Visit Provider Internal Medicine Gastroenterology
DX: D64.9 Anemia, unspecified (principal)
CPT/HCPCS: 36415; 82728; 83540; 85027

== ENCOUNTER 2025-08-30 10:34 | Outpatient (REF) | payer MEDICARE, SELFPAY ==
--- NOTE | 2025-08-30 10:40 | PFT_ITS ---
Flows: FEV1: 97 % of predicted at 2.60 L FVC: 87 % of predicted at 3.16 L FEV1/FVC: 82 % Bronchodilator response: Absent Volumes: Total lung capacity: 78 % of predicted at 5.33 L Residual volume: 60 % of predicted at 1.83 L Slow vital capacity: 90 % of predicted at 3.50 L Expiratory reserve volume: 45 % of predicted at 0.52 L Diffusion capacity: Mildly decreased Impression: Mild restrictive ventilatory defect with no bronchodilator response. Decreased expiratory reserve volume suggests extrathoracic restriction likely secondary to abdominal obesity. Combination of decreased diffusion capacity with restrictive ventilatory defect suggests underlying pulmonary parenchymal disease. Clinical correlation is advised. MTDD
[2025-08-30 11:28] VITALS: PULSE 65
--- OUTSIDE RECORDS SUMMARY | 2025-08-30 12:46 | XMS_ITS | Data Portability ---
Author Organization [place] [facility] Address [address] [address] Care Team Providers Care Gin Pole Operator Name Role Phone MARVINNATHANIEL Primary Care Provider Assessment Encounter Date Assessment [...] otherwise unremarkable. [email or web address] Not available 03/27/2025 06:37:00 06/24/2025 06/24/2025 84-year-old male presents today for follow-up. He reports that the muffled sound he previously had in his ears is gone. He does wear binaural amplification. He does feel a little blockage on the left, and I was able to remove some cerumen on the left. Middle ears are well aerated. His throat is starting to feel little bit better. He did have a barium swallow showing slow transit and has made some dietary changes. He continues on omeprazole and fluticasone. Given clinical improvement, he may follow-up with any new or worsening symptoms. [email or web address] Not available 07/01/2025 07:47:29 Plan of Treatment Reminders Order Date Submit Date Provider Last Modified By Organization Details Last Modified Time Details Appointments None record ed. Lab None record ed. Referral None record ed. Procedures None record ed. Surgeries None record ed. Imaging None record ed. Medication Orders None record ed. Patient TargetsNo targets recorded. Patient InstructionsNo instructions [...] Sensorineur al hearing loss of bilateral ears 114607736 Active 2024 JOSIE BETHEA [address] [address], [place], [phone], [facility] 5 09:51:03 Bilateral tinnitus 2546437688099 Active 2024 JOSIE BETHEA [address] [address], [place], [phone], [facility] - [facility] 5 09:51:21 Posterior rhinorrhea 76941442 Active 2024 KATHERINE WARNER MD [address] [address], [place], [phone], [facility] - [facility] 5 06:34:46 Clearing throat - hawking 337036138 Active 2024 KATHERINE WARNER MD [address] [address], [place], [phone], [facility] - [facility] 5 06:34:53 Impacted cerumen in left ear 1831797837841 101 Active 2024 KATHERINE WARNER MD [address] [address], [place] [phone], [place] [facility] 07:47:18 Problem Notes None recorded. Procedures Surgical History Date Name Laterality Status Provider Name and Address Organization Details Recorded Time 03/22/20 25 Comp Audio with Tymps - 87938 & 58728 completed JOSIE BETHEA [address],[place] [address] [place] [address], [phone], [place] - [facility] 03/22/2025 09:50:58 03/22/20 25 Fiberoptic Laryngoscopy (Comprehensive) completed KATHERINE WARNER MD [address] [facility] [address],[place] [address] [place] [address], [phone], [place] [facility] 03/27/2025 06:34:37 operation on shoulder joint completed KATHERINE WARNER MD [address],[place] [address] [place] [address], [phone], [place] [facility] 03/27/2025 06:32:23 tonsillectomy and adenoidectomy completed KATHERINE WARNER MD [address],[place] [address] [place] [address], [phone], [place] [facility] 03/27/2025 06:32:33 cardiac pacemaker procedure completed KATHERINE WARNER MD [address],[place] [address] [place] [address], [phone], [place] [facility] 03/27/2025 06:32:50 operation on breast completed KATHERINE WARNER MD [address] [facility] [place] [address] [place] [address], [phone], [place] [facility] 03/27/2025 06:33:01 Imaging Results None recorded. Procedure Notes None recorded. Medical Equipment None Reported. Allergies No known drug allergies Medications Name Sig Start Date Stop Date Status Note LastModified by Organization Details LastModified Time losartan 50 mg tablet Take 1 tablet every day by oral route. active Not Available Not Available No t Available doxycycline hyclate 100 mg capsule TAKE 1 CAPSULE BY MOUTH TWICE A DAY FOR 10 DAYS 06/21 completed Not Available Not Available Not Available azithromyci n 250 mg tablet TAKE 2 TABLETS BY MOUTH TODAY, THEN TAKE 1 TABLET DAILY FOR 4 DAYS DIRECTED 03/22 completed Not Available Not Available Not Available ofloxacin 0.3 % ear drops PLACE 5 DROPS INTO THE LEFT EAR 2 TIMES A DAY. 03/22 completed Not Available Not Available Not Available simvastatin 20 mg tablet TAKE 1 TABLET BY MOUTH EVERY DAY active Not Available Not Available No t Available omeprazole 20 mg capsule,del ayed release [...] completed Not Available Not Available Not Available levofloxaci n 750 mg tablet TAKE 1 TABLET BY MOUTH EVERY DAY FOR 5 DAYS 06/21 completed Not Available Not Available Not Available albuterol sulfate HFA 90 mcg/actuati on aerosol inhaler INHALE 2 PUFFS EVERY 4 TO 6 HOURS NEEDED active Not Available Not Available No t Available amoxicillin 875 mg-potassiu m clavulanate 125 mg tablet TAKE 1 TABLET BY MOUTH EVERY 12 HOURS FOR 7 DAYS 06/21 completed Not Available Not Available Not Available oxycodone 5 mg tablet TAKE 1 [...] Updated DateTime 03/22/2025 170.82 cm 34.7 kg/m2 645054.1 g Janie Manzo [facility] 03/22/2025 10:23:37 Date Recorded Body height Body mass index (BMI) Body weight Provider Name and Address Organization Details Last Updated DateTime 06/24/2025 177.8 cm 31.4 kg/m2 61885.73 g Janie Manzo [facility] 06/24/2025 10:16:44 Social History None recorded. Functional Status None recorded. Mental Status None recorded. Family History Nothing Reported. Medical History Condition Response Cancer Y Anemia Y Past Encounters Encounter ID Performer Location Encounter Start Date Encounter Closed Date Diagnosis/Indication Diagnosis SNOMED-CT Code Diagnosis ICD10 Code Diagnosis IMO Codes Diagnosis Note [id number] KATHERINE WARNER MD [facility] [address] [address] 03/22/2025 09:38:00 03/22/2025 12:08:18 Sensorineural hearing loss of bilateral ears 895004640 H90.3 21988294 Right Ear:Mild to profound SNHL with good speech discrimina tion.Type Ad tympanogra m.Left Ear:Mild to profound SNHL with good speech discrimina tion.Type Ad tympanogra m. Bilateral tinnitus 02678 42995 102 H93.13 015377 Posterior rhinorrhea 758 86203 R09.82 351182 Clearing t hroat - hawking 533048299 R09.89 [id number] KATHERINE WARNER MD [facility] [address] [address] 06/24/2025 10:10:24 06/24/2025 10:33:55 Posterior rhinorrhea 05962862 R09.82 721486 Clearing t hroat - hawking 824557381 R09.89 191955 Sensorineu ral hearing loss of bilateral ears 022619053 H90.3 68956682 Impacted c erumen in left ear 2876456050 828384 H61.22 7431749 Health Concerns Section Related Observation LastModified by Organization Detai ls LastModified Time None Recorded Concern Status LastModified by Organization Details LastModified Time None Recorded Advance Directives Directive None Recorded Payers Insurance Date Sequence Insurance Name Policy Number Policy Hazel Covered Member ID Hazel Member ID Guarantor Name 07/02/[address] [place] [address] (MEDICARE REPLACEMENT/ ADVANTAGE - PPO) [id number] 1 Aden Gregorio [id number] Aden Gregorio Notes Date Note Type Note Provider Name and Address Organization Details Recorded Time 03/22/2025 text/html 84 yo M presents for evaluation of a couple concernswas sounding hollow with talkingbeginning of february cold with pneumonia, was on azithromycin and amoxicillin then z cindy againcoughing a little better now now on inhalermucinexwas coricidin HCusing flonase nowsometimes dysphagia, EGD scheduled for April lots of mucus with sinuses, still post nasal driphaving before, does have CPAP, does not clean the machine regularly throat clearing wears hearing aids from Ruth WARNER MD 100 [facility], [place], [address], [place] [facility] 03/27/2025 06:37:30 06/24/2025 text/html Throat feeling a little betterBaS at [place] showed a pocket, slow transitRecommended to drink with a lot of water and chew wellStill on omeprazoleStill on flonase Saw pulmonologistPut on doxycycline which seemed to help, finished a couple weeks agoGoing to do PFTs and a new PSGHe had a CT of his chest in May showing predominantly right upper lobe opacity with appearance suggesting organizing pneumonia/resolving pneumonia. Muffled sound in the ears gone now as wellFeels a little blockage in the left, with hearing aids in or out, like something crawling PV: 84 yo M presents for evaluation of a couple concernswas sounding hollow with talkingbeginning of february cold with pneumonia, was on azithromycin and amoxicillin then z cindy againcoughing a little better now now on inhalermucinexwas coricidin HCusing flonase nowsometimes dysphagia, EGD scheduled for April lots of mucus with sinuses, still post nasal driphaving before, does have CPAP, does not clean the machine regularly throat clearing wears hearing aids from [facility] KATHERINE WARNER MD 100 [facility], [place], [address], [place] [facility] 07/01/2025 07:47:41
== END 2025-08-30 10:35 | disposition home or self-care (01) ==
LOC: HO.RESP 10:34
PROVIDERS: PCP Nurse Practitioner Primary Care; Visit Provider Nurse Practitioner Family
DX: R06.00 Dyspnea, unspecified (principal)
CPT/HCPCS: 94060; 94640; 94727; 94729

== ENCOUNTER → 2025-08-30 10:40 | Outpatient (BNV) | payer MEDICARE, SELFPAY | PROVIDERS: PCP Nurse Practitioner Primary Care; Visit Provider Internal Medicine Pulmonary Disease | DX: J98.4 Other disorders of lung (principal) | CPT/HCPCS: 94060; 94727; 94729 ==

== ENCOUNTER 2025-10-08 10:44 | Outpatient (AMB) | payer MEDICARE, SELFPAY ==
--- OUTSIDE RECORDS SUMMARY | 2023-06-26 14:24 | XMS_ITS | Encounter Summary ---
Author Organization [facility] Address [address] [place] [id number] Phone Care Team Providers Care Real Property Evaluator Name Role Phone Mary Jean MARKETING ADMIN Primary Care Provid er Encounter Details Date Type Department Care Team (Late st Contact Info) Description 06/26/2023 3:24 PM EDT Hospital Encounter [facility] [address] [place] [id number] Kena Michel CNP [address] [place] [id number] Social History Tobacco Use Types Packs/Day Years Used Date Smoking Tobacco: Never Smokeless Tobacco: Never Alcohol Use Standard Drinks/Week Comments Yes 14 (1 standard drink = 0.6 oz pu re alcohol) 2-3 scotch per day Education Answer Date Recorded Are you interested in more education? Not on mio e 03/11/2023 Are you concerned about learning? Not on file 03/11/2023 No 03/11/2023 No 03/11/2023 Digital Access Answer Date Recorded No 04/11/2023 No 04/11/2023 Reliable internet access at home? Not on file 04/11/2023 Device with a working camera? Not on file Sex and Gender Information Value Date Recorded Sex Assigned at Not on file Legal Sex Male 10:12 PM EDT Gender Identity Not on file Sexual Orientation Not on file documented as of this encounter Plan of Treatment Not on file documented as of this encounter Procedures Procedure Name Priority Date/Time Associated Diagnosis Comments XR RIBS 3 OR MORE VIEWS WITH PA CHEST (RIGHT) Urgent/patient waiting 06/26/2023 3:43 PM EDT Rib pain on right side documented in this encounter Results * XR RIBS 3 OR MORE VIEWS WITH PA CHEST (RIGHT) (06/26/2023 3:43 PM EDT) Anatomical Region Laterality Modality Chest Computed Radiogr aphy 06/26/2023 3:47 PM EDT Impressions 06/26/2023 3:52 PM EDT No displaced rib fracture. Narrative 06/26/2023 3:52 PM EDT XR RIBS 3 OR MORE VIEWS WITH PA CHEST (RIGHT) COMPARISON: None FINDINGS: No displaced rib fracture. Left-sided ICD. PA evaluation of the chest demonstrates no focal consolidation, pleural effusion, pulmonary edema, or pneumothorax. Cardiomediastinal silhouette is normal. Procedure Note Angle Montenegro MD - 06/26/2023 XR RIBS 3 OR MORE VIEWS WITH PA CHEST (RIGHT) COMPARISON: None FINDINGS: No displaced rib fracture. Left-sided ICD. PA evaluation of the chest demonstrates no focalconsolidation, pleural effusion, pulmonary edema, or pneumothorax.Cardiomediastinal silhouette is normal. IMPRESSION: No displaced rib fracture. Kena Michel BEEF [employer]LE F[employer] WORKER IMG XR CHEST Final Resul t documented in this encounter Visit Diagnoses Not on filedocumented in this encounter Care Teams Real Property Evaluator Relationship Specialty Start Date End Date Mary Jean NP [address] [place] [address] PCP - General Family Medicine 03/10/21 documented as of this encounter Additional Source Comments The information contained in this document represents components of the legal health record. It is not the complete legal health record.[facility]
--- OUTSIDE RECORDS SUMMARY | 2023-06-26 14:24 | XMS_ITS | Encounter Summary ---
Author Organization [facility] Address [address] [place] [phone] Phone Care Team Providers Care Global Marketing Operations Manager Name Role Phone Mary Jean COLLEGE OR UNIVERSITY BUSINESS MANAGER Primary Care Provid er Encounter Details Date Type Department Care Team (Late st Contact Info) Description 06/26/2023 3:24 PM EDT Hospital Encounter [facility] [address] [place] [phone] Kena Michel CNP [address] [place] [address] Social History Tobacco Use Types Packs/Day Years [...] Name Priority Date/Time Associated Diagnosis Comments XR HAND 3 OR MORE VIEWS (RIGHT) Urgent/patient waiting 06/26/2023 3:43 PM EDT Fall (on) (from) other stairs and steps, initial encounter documented in this encounter Results * XR HAND 3 OR MORE VIEWS (RIGHT) (06/26/2023 3:43 PM EDT) Anatomical Region Laterality Modality Hand Right Computed Radiogr aphy 06/26/2023 3:48 PM EDT Impressions 06/26/2023 3:50 PM EDT No acute fracture or malalignment of the right wrist or right hand. Narrative 06/26/2023 3:50 PM EDT XR WRIST 3 OR MORE VIEWS (RIGHT), XR HAND 3 OR MORE VIEWS (RIGHT) COMPARISON: None FINDINGS: No acute fracture or suspicious osseus lesion. Alignment is standard. The joint spaces are congruent. Advanced first carpometacarpal osteoarthropathy. No unexpected radiopaque foreign body or soft tissue gas identified. Diffuse soft tissue edema. Procedure Note Rodolfo Ch MD - 06/26/2023 XR WRIST 3 OR MORE VIEWS (RIGHT), XR HAND 3 OR MORE VIEWS (RIGHT) COMPARISON: None FINDINGS: No acute fracture or suspicious osseus lesion. Alignment is standard. The joint spaces are congruent. Advanced firstcarpometacarpal osteoarthropathy. No unexpected radiopaque foreign body or soft tissue gas identified.Diffuse soft tissue edema. IMPRESSION: No acute fracture or malalignment of the right wrist or right hand. Kena Michel BILLING CUSTOMER SERVICE REPRESENTATIVE IMG XR UPPER EXTREMITY Josefa l Result documented in this encounter Visit Diagnoses Not on filedocumented in this encounter Care Teams Global Marketing Operations Manager Relationship Specialty Start Date End Date Mary Jean NP [address] [place] [address] PCP - General Family Medicine 03/10/21 documented as of this encounter Additional Source Comments The information contained in this document represents components of the legal health record. It is not the complete legal health record.[facility]
--- OUTSIDE RECORDS SUMMARY | 2023-06-26 14:25 | XMS_ITS | Encounter Summary ---
Author Organization [facility] Address [address] [place] [phone] Phone Care Team Providers Care Crane Helper Name Role Phone Mary Jean ARCHITECT INTERNSHIP Primary Care Provid er Encounter Details Date Type Department Care Team (Late st Contact Info) Description 06/26/2023 3:25 PM EDT Hospital Encounter [facility] [address] [place] [phone] Kena Michel CNP [address] [place] [phone] [email or web address] Social History Tobacco Use Types Packs/Day Years [...] Name Priority Date/Time Associated Diagnosis Comments XR WRIST 3 OR MORE VIEWS (RIGHT) Urgent/patient waiting 06/26/2023 3:43 PM EDT Fall (on) (from) other stairs and steps, initial encounter documented in this encounter Results * XR WRIST 3 OR MORE VIEWS (RIGHT) (06/26/2023 3:43 PM EDT) Anatomical Region Laterality Modality Wrist Right Computed Radiogr aphy 06/26/2023 3:48 PM [...] right wrist or right hand. Kena Michel STATION CASHIER IMG XR UPPER EXTREMITY Josefa l Result documented in this encounter Visit Diagnoses Not on filedocumented in this encounter Care Teams Crane Helper Relationship Specialty Start Date End Date Mary Jean NP [address] [place] [address] PCP - General Family Medicine 03/10/21 documented as of this encounter Additional Source Comments The information contained in this document represents components of the legal health record. It is not the complete legal health record.[facility]
[2025-10-08 10:53] VITALS: BP 100/60; PULSE 61; O2SAT 99; BMI 33.7
--- NOTE | 2025-10-08 10:53 | MHC.OFFVIS ---
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 He was initially sent from PCP for pulmonary evaluation for recurring pneumonia. He started with bronchitic symptoms at the end of January 2025, diagnosed with pneumonia in February and treated with multiple rounds of antibiotics including azithromycin followed by Augmentin and another course of azithromycin with minimal improvement. CXR initially reported resolving infiltrates/opacities in February however symptoms persisted and repeat CXR 04/24 revealed increasing prominence of RUL/RML opacities. He did undergo CT 05/31 which revealed predominantly right upper lobe opacity with appearance suggesting organizing pneumonia/resolving pneumonia with recommend follow-up chest x-ray to demonstrate resolution in 2-3 months. Ultimately patient was placed on Levaquin in addition to Doxycycline in May with complete resolution of cough however continues with dyspnea. Today he presents to review PFT. He denies any visits to urgent care hospitalizations related to respiratory distress since last visit. [facility] Medical History On anticoagulant therapy On beta kelvin at home Hx of skin cancer, basal cell Elevated cholesterol Prostate cancer RAHEL on CPAP Port-site hernia Essential hypertension Persistent atrial fibrillation Pacemaker Surgical History History of incisional hernia repair S/P placement of cardiac pacemaker Hx of colonoscopy History of removal of cyst Hx of tonsillectomy H/O prostatectomy History of left shoulder replacement Family History Mother HTN (hypertension) Diabetes Father Heart attack Brother Asthma Paternal Grandfather Cancer Social History Are you a primary reproductive healthcare assistant to a significant other at home: No Do you presently have visiting nurse or other home services: No Alcohol intake: current Alcohol intake frequency: other Patient Tobacco Use Status: Never used Tobacco Advance Directives Date on File: 10/01/19 Physical Exam Vital Signs: Last Vital Signs Pulse 61 10/08/25 10:53 BP 100/60 10/08/25 10:53 Pulse Ox 99 10/08/25 10:53 Oxygen Delivery Method Room Air 10/08/25 10:53 BMI result Body Mass Index 33.7 Assessment & Plan Assessment & Plan (1) Restrictive ventilatory defect: Code(s): R94.2 - Abnormal results of pulmonary function studies Category: Medical (2) RAHEL on CPAP: Code(s): G47.33 - Obstructive sleep apnea (adult) (pediatric); Z99.89 - Dependence on other enabling machines and devices Category: Medical (3) Dyspnea: Code(s): R06.00 - Dyspnea, unspecified Category: Medical Plan Reviewed PFT which demonstrated mild restrictive ventilatory defect with no bronchodilator response. Decreased expiratory reserve volume suggests extrathoracic restriction likely secondary to abdominal obesity. Combination of decreased diffusion capacity, 64%, with restrictive ventilatory defect, total lung capacity 78%. Will send for chest CT to assess for underlying pulmonary parenchymal disease in addition to resolution of prior pneumonia. He is requesting is order to be sent to [facility]. In lab PSG 08/08 revealed borderline RAHEL AHI 6, without significant hypoxemia, however in REM, AHI 10. Prior testing 2018 revealed complex RAHEL with AHI 59 and nocturnal hypoxemia lowest 67%, currently using ASV. Given that updated sleep study did not reveal central events which were likely related to heavy alcohol consumption and patient quit 2 years ago will send order for CPAP therapy, in APAP mode with pressure is 6-16cm H2O. He is requesting this order be sent to [facility]. All questions were answered and patient is in agreement of plan. Will follow up in 8-10 weeks or sooner if needed. Orders: Orders CT chest wo IV con Today R94.2 - Abnormal results of pulmonary function studies Medications: New ipratropium bromide administer into each nostril 2 sprays intranasal BID 30 mL 2RF Coding Level of Care Code Est Pt Level 4 (00631) Complex visit Add On G2211 Diagnoses Restrictive ventilatory defect R94.2 RAHEL on CPAP G47.33; Z99.89 Dyspnea R06.00
--- OUTSIDE RECORDS SUMMARY | 2025-10-08 13:51 | XMS_ITS | Encounter Summary ---
Author Organization [facility] Address [address] [address] Phone Care Team Providers Care Drosophere Operator Name Role Phone Jerod Peace MD Primary Care Provider Mary Juarez NP Primary Care Provid er Encounter Details Date Type Department Care Team (Late st Contact Info) Description 01/05/2019 Procedure Pass [facility] Interventional Radiology [address] [place] [address] Social History Tobacco Use Types Packs/Day Years [...] on filedocumented in this encounter Care Teams Drosophere Operator Relationship Specialty Start Date End Date Jerod Peace MD PCP - General 09/01/17 03/09/21 Mary Jean NP [address] [place] [id number] PCP - General Family Medicine 03/10/21 documented as of this encounter Additional Source Comments The information contained in this document represents components of the legal health record. It is not the complete legal health record.[facility]
--- OUTSIDE RECORDS SUMMARY | 2025-10-08 13:52 | XMS_ITS | Encounter Summary ---
Author Organization [facility] Address [address] [facility] [address] [place] [address] Phone Care Team Providers Care Bitumen Plant Operator Name Role Phone Jerod Peace MD Primary Care Provider Mary Juarez NP Primary Care Provid er Encounter Details Date Type Department Care Team (Late st Contact Info) Description 10/30/2019 Ancillary Orders Non-Invasive Cardiology [address] [place] [address] Fan Trevizo MD [address] [place] [address] [email or web address] Sick sinus syndrome Social History Tobacco [...] * DEVICE CHECK: PPM REMOTE INTERROGATION WITH CASTING MACHINE OPERATOR HELPER REVIEW (11/20/2019 1:54 PM EST) Narrative Fan Trevizo MD - 11/28/2019 3:28 PM EST Reason for appointment: Remote pacemaker interrogation HPI: Routine 3 month remote pacemaker interrogation. No device related complaints. Indication for device: SSS. Examination: Device type: Pacemaker Industrial X Ray Operator: Medtr[employer] Mode: VVI LRL/UPL: 60/- bpm High [...] dysfunction documented in this encounter Care Teams Bitumen Plant Operator Relationship Specialty Start Date End Date Jerod Peace MD PCP - General 09/01/17 03/09/21 Mary Jean NP [address] [place] [address] PCP - General Family Medicine 03/10/21 documented as of this encounter Additional Source Comments The information contained in this document represents components of the legal health record. It is not the complete legal health record.[facility]
--- OUTSIDE RECORDS SUMMARY | 2025-10-08 13:52 | XMS_ITS | Patient Health Record ---
Author Organization [facility] Address [address] [place] [address] Care Team Providers Care Flight Superintendent Name Role Phone Mary Jean N.P Primary Care Provider Un available Dylon Gomez Jr Unavailable [phone] Allergies No Known Allergies Results Component Value Reference Range Flag Notes Complete Blood Count Auto Di ff Reviewed date:03/13/2025 03:11:58 PM Interpretation: Performing Lab:[facility], [address] [place] [phone] Notes/Report: White Blood Count 7.4 4.8-10.8 X10*3/uL N Red Blood Count 4.79 4.60-5.80 X10*6/uL N Hemoglobin 12.6 14.0-18.0 g/dl L Hematocrit 40.3 42.0-52.0 % L Mean Corpuscular Volume 84.1 80.0-98.0 fL N Mean Corpuscular Hemoglobin 26.3 27.0-33.0 pg L Mean Corpuscular HGB Conc 31.3 31.0-36.0 g/dl N Red Cell Distribution Width 13.8 11.0-16.0 % N Platelet Count 257 160-400 X10*3/uL N Mean Platelet Volume 9.8 9.4-12.4 fL N Neutrophils Percent Auto 58.2 45-73 % N Imm Gran Pct Auto 0.4 0.0-0.4 % N Lymphocytes Percent Auto 26.6 20-40 % N Monocytes Percent Auto 9.8 2-11 % N Eosinophils Percent Auto 3.5 0-4 % N Basophils Percent Auto 1.5 0-2 % N NRBC Pct Auto 0.0 0.0-0.2 /100WBC N Neutrophils Absolute Auto 4.3 2.0-8.3 x10*3/uL N Imm Gran Abs Auto 0.03 0.00-0.03 X10*3/uL N Lymphocytes Absolute Auto 2.0 1.2-4.9 X10*3/uL N Monocytes Absolute Auto 0.7 0.1-1.2 X10*3/uL N Eosinophils Absolute Auto 0.3 0.0-0.4 X10*3/uL N Basophils Absolute Auto 0.1 0.0-0.2 X10*3/uL N NRBC Abs Auto 0.000 0.0-0.012 X10*3/uL N Complete Blood Count Auto Di ff Reviewed date:03/28/2025 11:05:53 AM Interpretation: Performing Lab:[facility], [address] [place] [phone] Notes/Report: White Blood Count 6.5 4.8-10.8 X10*3/uL N Red Blood Count 4.55 4.60-5.80 X10*6/uL L Hemoglobin 11.8 14.0-18.0 g/dl L Hematocrit 37.7 42.0-52.0 % L Mean Corpuscular Volume 82.9 80.0-98.0 fL N Mean Corpuscular Hemoglobin 25.9 27.0-33.0 pg L Mean Corpuscular HGB Conc 31.3 31.0-36.0 g/dl N Red Cell Distribution Width 13.7 11.0-16.0 % N Platelet Count 208 160-400 X10*3/uL N Mean Platelet Volume 11.1 9.4-12.4 fL N Neutrophils Percent Auto 55.9 45-73 % N Imm Gran Pct Auto 0.3 0.0-0.4 % N Lymphocytes Percent Auto 29.5 20-40 % N Monocytes Percent Auto 9.5 2-11 % N Eosinophils Percent Auto 3.4 0-4 % N Basophils Percent Auto 1.4 0-2 % N NRBC Pct Auto 0.0 0.0-0.2 /100WBC N Neutrophils Absolute Auto 3.6 2.0-8.3 x10*3/uL N Imm Gran Abs Auto 0.02 0.00-0.03 X10*3/uL N Lymphocytes Absolute Auto 1.9 1.2-4.9 X10*3/uL N Monocytes Absolute Auto 0.6 0.1-1.2 X10*3/uL N Eosinophils Absolute Auto 0.2 0.0-0.4 X10*3/uL N Basophils Absolute Auto 0.1 0.0-0.2 X10*3/uL N NRBC Abs Auto 0.000 0.0-0.012 X10*3/uL N IRON PROFILE Reviewed date:03/28/2025 11:06:18 AM Interpretation: Performing Lab:[facility], [address] [place] [phone] Notes/Report: Iron 33 45-160 mcg/dL L Slight Hemo lysis.Interpret result with caution. Total Iron Binding Capacity 368 228-428 mcg/dL N Percent Iron Saturation 9 15-50 % L Unsaturated Iron Binding 335 Ferritin Reviewed date:03/28/2025 11:06:08 AM Interpretation: Performing Lab:[facility], [address] [place] [phone] Notes/Report: Ferritin 35 20-250 ng/mL N Vitamin B12 Reviewed date:03/28/2025 11:06:01 AM Interpretation: Performing Lab:[address] [phone] Notes/Report: Vitamin B12 434 200-900 pg/mL N NORMAL 200-900 PG/ML INDETERMINATE 160-199 PG/ML DEFICIENT < 160 PG/ML Folate Reviewed date:03/28/2025 11:05:58 AM Interpretation: Performing Lab:[facility], [address] [place] [phone] Notes/Report: Folate 9.0 > or = 4.0 ng/mL Reference Values: > or = 4.0 ng/mL < 4.0 ng/mL suggests folate deficiency Methotrexate, aminopterin and folinic acid (leucovorin) are chemotherapeutic agents whose molecular structures are similar to folate; therefore, the Audit Analyst folate assay cannot be used for patients using these drugs. SLIDE REVIEW Reviewed date:03/28/2025 11:05:43 AM Interpretation: Performing Lab:[facility], [address] [place] [phone] Notes/Report: SLIDE REVIEW VERIFIED FL upper GI w air Reviewed date:06/13/2025 07:54:12 AM Interpretation: Performing Lab: Notes/Report: [address] [place] [address] Fluoroscopy Report Signed Patient: Timmy Mtz MR#: [id number] [birth year] : 1940 Acct:[id number] Age/Sex: 84 / M ADM Date: 06/11/25 Loc: HO.XRAY Attending Dr: Dylon Gomez MD Ordering Physician: Dylon Gomez MD Date of Service: 06/11/25 Procedure(s): FL upper GI w air Accession Number(s): [id number] cc: Dylon Gomez MD; Mary Jean CNP [...] Brennen Izquierdo MD 06/11/2025 03:11 PM EDT RP Dictated By: Brennen Izquierdo MD Signed By: <Electronically signed by Brennen Izquierdo MD in OV> 06/11/25 1511 DD/ 1000 TD/TT: 06/11/25 1014 Bed Placement Coordinator: RICKY Ferritin Reviewed date:08/20/2025 02:26:30 PM Interpretation: Performing Lab:[facility], [address] [place] [phone] Notes/Report: Ferritin 91 20-250 ng/mL N IRON PROFILE Reviewed date:08/20/2025 02:26:35 PM Interpretation: Performing Lab:[facility], [address] [place] [phone] Notes/Report: Iron 45 45-160 mcg/dL N Total Iron Binding Capacity 318 228-428 mcg/dL N Percent Iron Saturation 14 15-50 % L Unsaturated Iron Binding 273 Complete Blood Count no Diff Reviewed date:08/20/2025 02:26:50 PM Interpretation: Performing Lab:[facility], [address] [place] [phone] Notes/Report: White Blood Count 6.3 4.8-10.8 X10*3/uL N Red Blood Count 5.38 4.60-5.80 X10*6/uL N Hemoglobin 14.5 14.0-18.0 g/dl Hematocrit 44.8 42.0-52.0 % N Mean Corpuscular Volume 83.3 80.0-98.0 fL N Mean Corpuscular Hemoglobin 27.0 27.0-33.0 pg N Mean Corpuscular HGB Conc 32.4 31.0-36.0 g/dl N Red Cell Distribution Width 16.9 11.0-16.0 % H Platelet Count 232 160-400 X10*3/uL N Mean Platelet Volume 9.1 9.4-12.4 fL L NRBC Pct Auto 0.0 0.0-0.2 /100WBC N NRBC Abs Auto 0.000 0.0-0.012 X10*3/uL N Reason For Referral No Information Medications Medication SIG (Take, Route, Frequency, Duration) Notes Start Date End Date Status Vitamin D 2000 UNIT Tablet 2 tablet Oral ly Once a day Active Xarelto 20 MG Tablet 1 tablet with food Orally Once a day Active Flonase 50 MCG/ACT Suspension 1 spray in each nostril Nasally Once a day as needed Active Metamucil 30.9 % Powder 2 capsules with 8 ounces of liquid Orally prn Active Lisinopril 10 MG Tablet 1 tablet Orally Once a day Active Metoprolol Succinate ER 50 M G Tablet Extended Release 24 Hour 1 tablet Orally Once a day Active Simvastatin 20 MG Tablet 1 tablet in the evening Orally Once a day Active hydroCHLOROthiazide 12.5 MG Capsule 1 capsule Orally Once a day Active Losartan Potassium 50 MG Tablet Oral; Duration: 90 Days Active Furosemide 20 MG Tablet Oral; Duration: 90 Days Active Omeprazole 20 MG Capsule Delayed Release 1 capsule 1/2 to 1 hour before morning meal Orally Once a day Active Immunizations Vaccine Route Administration Date Status Comme nts Flu vaccine no Preserv 3 and > Unknown 10/26/2016 Admin istered Influenza Unknown 08/29/2018 Administered Influenza Unknown 07/31/2024 Administered Social History Social History Drug/Alcohol: Social Info Question Answer Notes AUDIT-C (Standard) Did you have a drink containing alcohol in the past year? No Points 0 Interpretation Negative Additional Details Category Social Info Options Details Miscellaneous: Marital status: Occupation: retired--part ti me security Problems Problem Type SNOMED Code ICD Code Onset Dates Problem Status W/U Status Risk Notes Problem Rectal bleeding (02818397) Rectal bleeding (K62.5) Active confirmed Problem Screening for malignant neoplasm of colon (983654983) Special screening for malignant neoplasms, colon (Z12.11) Active confirmed Problem Dysphagia (02403897) Dysphagia (R13.10) Active confirmed Problem Anemia (947231133) Anemia (D64.9) Active confirmed Vital Signs Temperature 97.5 degrees Fahrenheit 03/11/2025 Blood pressure diastolic 01 mm Hg 03/11/2025 Height 68.5 in 03/11/2025 Blood pressure systolic 001 mm Hg 03/11/2025 Weight 226.2 lbs 03/11/2025 BMI 33.89 kg/m2 03/11/2025 Encounters Encounter Location Date Provider Diagnosis [facility] [address] [place] [phone] 03/11/2025 Dylon Gomez Jr Rectal bleeding K62.5 and Dysphagia R13.10 [facility] [address] [place] [address] 02/06/2025 Dylon Gomez Jr [facility] [address] [place] [address] 02/13/2025 Dylon Gomez Jr [facility] [address] [place] [address] 02/14/2025 Dylon Macdonaldifford Jr [facility] [address] [place] [address] 03/13/2025 Dylon Jason Jr Anemia D64.9 [facility] [address] [place], [place] [address], [place] [address] 03/28/2025 Dylon Jason Anemia D64.9 [facility] [address] [place], [place] [address], [place] [address] 06/13/2025 Dylon Gomez Jr [facility] [address] [place] [address], [place] [address] 08/20/2025 Dylon Gomez Jr Assessments Encounter Date Diagnosis [...] CBC w/o DIFF 03/28/2025 CBC w/o DIFF 03/13/2025 CBC w/o DIFF 03/11/2025 XR GI SERIES 03/11/2025 Future Test Test Name Order Date COLONOSCOPY 07/24/2015 COLONOSCOPY 01/10/2019 Next Appt Details Provider Name:Dylon reynoso Jr, 02/17/2026 09:40:00 AM, [address] [facility], [address], [place], [address], Insurance Providers Payer Name Payer Address Payer Phone Subscriber Number Group Number Insured Name Patient Relationship to Insured Coverage Start Date Coverage End Date [facility] [address] [place] [address] [phone] [id number] TIMMY MTZ Self - patient is the insured 4 Medical (General) History Medical History History ICD Code Colonoscopy 09/01, tubular a denomas x 2, radiation proctitis, follow-up optional based on age Rosacea Tachycardia atrial fibrillation prostate cancer Surgical History Surgery Date(Month/Year) Removal benign cyst of chest prostatectomy tonsillectomy cardiac loop recorder 12/2018 skin cancer removal on nose shoulder replacement
--- OUTSIDE RECORDS SUMMARY | 2025-10-08 13:52 | XMS_ITS | Clinical Summary ---
Author Organization [facility] Address [address] [facility] [address] [place] [address] Phone Care Team Providers Care Educator Senior Clinical Name Role Phone Mary Jean NP Primary [...] this topic Medical Devices Implanted Type Area Broadcast Operations Technician Device Identifier Shelf Expiration Date Model / Serial / Lot Reveal Linq Loop Recorder System - [id number] Implanted:Qty : 1 on 01/05/2019 by Fan Trevizo MD at [facility] Implantable Monitor [employer] [id number] 12/11/2019 LNQ11 / [id number] / Procedures Procedure Name Priority Date/Time Associated Diagnosis Comments BASIC METABOLIC PANEL (BMP) Routine 06/25/2019 9:42 AM EDT Essential hypertension Hypercholesterolemi a from Last 3 Months or Most Recently Relevant to Health Maintenance Results * Basic metabolic panel (06/25/2019 9:42 AM EDT) SODIUM 140 133 - 146 mmol/L [facility] CHLORIDE 100 96 - 108 mmol/L [facility] POTASSIUM 5.0 3.3 - 5.1 mmol/L [facility] CO2 27 21 - 35 mmol/L [facility] BUN 16 6 - 19 mg/dL [facility] CREATININE 0.90 0.5 - 1.5 mg/dL [facility] GLUCOSE 88 70 - 99 mg/dL [facility] CALCIUM 9.5 8.4 - 10.3 mg/dL [facility] EGFR 82 >59 mL/min/1.7 3m2 [facility] Comment:If patient is black, multiply result by 1.159. Estimated glomerular filtration rate calculated using the CKD-EPI equation. ANION GAP 18 10 - 20 mmol/L [facility] Blood 06/25/2019 9:42 AM EDT 06/25/2019 9:43 AM EDT us Jn Martinez MD LAB BLOOD BKR ORDERABLES Final Result [address] [address] from Last 3 Months or Most Recently Relevant to Health Maintenance Insurance MEDICARE PART A & B MEDICARE POS PPO REPLACEMENT MEDICARE PART A & B MEDICARE POS PPO REPLACEMENT MEDICARE PART A & B MEDICARE POS PPO REPLACEMENT MEDICARE PART A & B [facility] MEDICARE POS PPO REPLACEMENT MEDICARE PART A & B [employer] [place] MEDIC[place] POS PPO REPLACEMENT MEDICARE PART A & B [employer] [place] MEDIC[place] POS PPO REPLACEMENT MEDICARE PART A & B Member Subscriber Plan / Payer (Ef fective 2006-Present) Name:Aden Gregorio Member ID:[id number] Relation to Subscriber:Self Name:Aden Gregorio Subscriber ID:[id number] Payer ID:[id number] Group ID:Not on file Type:Medicare Address: [employer] [facility] [address] [id number] [employer] [place] MEDICARE POS PPO REPLACEMENT MEDICARE PART A & B [employer] [place] MEDICARE POS PPO REPLACEMENT MEDICARE PART A & B [employer] [place] MEDIC[place] POS PPO REPLACEMENT Advance Directives For more information, please contact: [phone] (9AM - 5PM [place], Tuesday-Tuesday) * Full Code (Presumed) (Latest Code Status on File) Date Activated Date Inactivated Comments 01/05/2019 8:01 AM 01/05/2019 12:12 PM Care Teams Educator Senior Clinical Relationship Specialty Start Date End Date Mary Jean NP [address] [place] [address] PCP - General Family Medicine 03/10/21 Additional Source Comments The information contained in this document represents components of the legal health record. It is not the complete legal health record.[facility]
--- OUTSIDE RECORDS SUMMARY | 2025-10-08 13:52 | XMS_ITS | Data Portability ---
Author Organization [place] [facility], Allergy Address [address] [address] Care Team Providers Care Header Dock Name Role Phone MARVINNATHANIEL Primary Care Provider [...] Sensorineur al hearing loss of bilateral ears 805434270 Active 2024 JOSIE BETHEA [address] [address], [place], [address], [facility] [place] 5 09:51:03 Bilateral tinnitus 4561456916694 Active 2024 JOSIE BETHEA [address] [address], [place], [address], [facility] [place] 5 09:51:21 Posterior rhinorrhea 46902005 Active 2024 KATHERINE WARNER MD [address] [address], [place], [address], [facility] [place] 5 06:34:46 Clearing throat - hawking 970718619 Active 2024 KATHERINE AWRNER MD [address] [address], [place], [address], [facility] [place] 5 06:34:53 Impacted cerumen in left ear 6768703420888 101 Active 2024 KATHERINE WARNER MD [address] [address], [place] [address], [place] [facility] [place] 07:47:18 Problem Notes None recorded. Procedures Surgical History Date Name Laterality Status Provider Name and Address Organization Details Recorded Time 03/22/20 25 Comp Audio with Tymps - 10079 & 06627 completed JOSIE BETHEA [address],[place] [address] [place] [address], [phone], [place] [facility] [place] 03/22/2025 09:50:58 03/22/20 25 Fiberoptic Laryngoscopy (Comprehensive) completed KATHERINE WARNER MD [address],[place] [address] [place] [address], [address], [place] [facility] [place] 03/27/2025 06:34:37 operation on shoulder joint completed KATHERINE WARNER MD [address],[place] [address] [place] [address], [address], [place] [facility] [place] 03/27/2025 06:32:23 tonsillectomy and adenoidectomy completed KATHERINE WARNER MD [address],[place] [address] [place] [address], [address], [place] [facility] [place] 03/27/2025 06:32:33 cardiac pacemaker procedure completed KATHERINE WARNER MD [address],[place] [address] [place] [address], [address], [place] [facility] 03/27/2025 06:32:50 operation on breast completed KATHERINE WARNER MD [address] [facility],[place] [address] [place] [address], [address], [place] [facility] [place] 03/27/2025 06:33:01 Imaging Results None recorded. Procedure [...] Updated DateTime 03/22/2025 170.82 cm 34.7 kg/m2 298318.1 g Janie Manzo [place] [facility] 03/22/2025 10:23:37 Date Recorded Body height Body mass index (BMI) Body weight Provider Name and Address Organization Details Last Updated DateTime 06/24/2025 177.8 cm 31.4 kg/m2 06275.73 g Janie Manzo [place] [facility] 06/24/2025 10:16:44 Social History None recorded. Functional Status None recorded. Mental Status None recorded. Family History Nothing Reported. Medical History Condition Response Cancer Y Anemia Y Past Encounters Encounter ID Performer Location Encounter Start Date Encounter Closed Date Diagnosis/Indication Diagnosis SNOMED-CT Code Diagnosis ICD10 Code Diagnosis IMO Codes Diagnosis Note [id number] KATHERINE WARNER MD [facility] [address] [address] 03/22/2025 09:38:00 03/22/2025 12:08:18 Sensorineural hearing loss of bilateral ears 494859862 H90.3 [id number] Right Ear:Mild to profound SNHL with good speech discrimina tion.Type Ad tympanogra m.Left Ear:Mild to profound SNHL with good speech discrimina tion.Type Ad tympanogra m. Bilateral tinnitus 00441 40674 102 H93.13 727390 Posterior rhinorrhea 758 64180 R09.82 016114 Clearing t hroat - hawking 940471607 R09.89 093418 [id number] KATHERINE WARNER MD [facility] [address] [address] 06/24/2025 10:10:24 06/24/2025 10:33:55 Posterior rhinorrhea 02242898 R09.82 317315 Clearing t hroat - hawking 712654788 R09.89 963857 Sensorineu ral hearing loss of bilateral ears 011412650 H90.3 59447679 Impacted c erumen in left ear 4530346678 711650 H61.22 1044294 Health Concerns Section Related Observation LastModified by Organization Detai ls LastModified Time None Recorded Concern Status LastModified by Organization Details LastModified Time None Recorded Advance Directives Directive None Recorded Payers Insurance Date Sequence Insurance Name Policy Number Policy Hazel Covered Member ID Hazel Member ID Guarantor Name 07/02/[address] [place] [address] (MEDICARE REPLACEMENT/ ADVANTAGE - PPO) [id number] Aden Gregorio [id number] Aden Gregorio Notes Date Note Type Note [...] hearing aids from Ruth WARNER MD 100 [facility], [place], [address], [place] [facility] [place] 03/27/2025 06:37:30 06/24/2025 text/html Throat feeling a little betterBaS at [place] showed a pocket, slow transitRecommended to drink [...] from [facility] KATHERINE WARNER MD 100 [facility], [place], [address], [place] [facility] [place] 07/01/2025 07:47:41
--- OUTSIDE RECORDS SUMMARY | 2025-10-08 13:52 | XMS_ITS | Encounter Summary ---
Author Organization [facility] Address [address] [facility] [address] [place] [address] Phone Care Team Providers Care Electroplater Name Role Phone Jerod Peace MD Primary Care Provider Mary Juarez NP Primary Care Provid er Encounter Details Date Type Department Care Team (Late st Contact Info) Description 03/21/2019 Ancillary [facility] [address] [place] [address] Fan Trevizo MD [address] [place] [address] [email or web address] Social History Tobacco Use Types Packs/Day Years [...] on filedocumented in this encounter Care Teams Electroplater Relationship Specialty Start Date End Date Jerod Peace MD PCP - General 09/01/17 03/09/21 Mary Jean NP [address] [place] [address] [place] [address] PCP - General Family Medicine 03/10/21 documented as of this encounter Additional Source Comments The information contained in this document represents components of the legal health record. It is not the complete legal health record.[facility]
--- OUTSIDE RECORDS SUMMARY | 2025-10-08 13:52 | XMS_ITS | Encounter Summary ---
Author Organization [facility] Address [address] [facility] [address] [place] [address] Phone Care Team Providers Care Cardiology Technologist Name Role Phone Jerod Peace MD Primary Care Provider Mary Juarez NP Primary Care Provid er Encounter Details Date Type Department Care Team (Late st Contact Info) Description 10/25/2020 Procedure Pass Non-Invasive Cardiology [address] [place] [address] Social History Tobacco Use Types Packs/Day Years [...] on filedocumented in this encounter Care Teams Cardiology Technologist Relationship Specialty Start Date End Date Jerod Peace MD PCP - General 09/01/17 03/09/21 Mary Jean NP [address] [place] [address] PCP - General Family Medicine 03/10/21 documented as of this encounter Additional Source Comments The information contained in this document represents components of the legal health record. It is not the complete legal health record.[facility]
--- OUTSIDE RECORDS SUMMARY | 2025-10-08 13:52 | XMS_ITS | Encounter Summary ---
Author Organization [facility] Address [address] [address] Phone Care Team Providers Care Hot Baller Name Role Phone Jerod Peace MD Primary Care Provider Mary Juarez NP Primary Care Provid er Encounter Details Date Type Department Care Team (Late st Contact Info) Description 03/21/2019 Ancillary Orders Non-Invasive Cardiology [address] [place] [address] Fan Trevizo MD [address] [place] [address] [email or web address] Sick sinus syndrome Social History Tobacco [...] dysfunction documented in this encounter Care Teams Hot Baller Relationship Specialty Start Date End Date Jerod Peace MD PCP - General 09/01/17 03/09/21 Mary Jean NP [address] [place] [address] PCP - General Family Medicine 03/10/21 documented as of this encounter Additional Source Comments The information contained in this document represents components of the legal health record. It is not the complete legal health record.[facility]
--- OUTSIDE RECORDS SUMMARY | 2025-10-08 13:52 | XMS_ITS | Encounter Summary ---
Author Organization [facility] Address [address] [facility] [address] [place] [address] Phone Care Team Providers Care Home Security Alarm Installer Name Role Phone Jerod Peace MD Primary Care Provider Mary Juarez NP Primary Care Provid er Encounter Details Date Type Department Care Team (Late st Contact Info) Description 11/25/2020 Procedure Pass Non-Invasive Cardiology [address] [place] [address] Social History Tobacco Use Types Packs/Day Years [...] on filedocumented in this encounter Care Teams Home Security Alarm Installer Relationship Specialty Start Date End Date Jerod Peace MD PCP - General 09/01/17 03/09/21 Mary Jean NP [address] [place] [address] PCP - General Family Medicine 03/10/21 documented as of this encounter Additional Source Comments The information contained in this document represents components of the legal health record. It is not the complete legal health record.[facility]
--- OUTSIDE RECORDS SUMMARY | 2025-10-08 13:52 | XMS_ITS | Encounter Summary ---
Author Organization [facility] Address [address] [address] Phone Care Team Providers Care Open Hearth Worker Name Role Phone Jerod Peace MD Primary Care Provider Mary Juarez NP Primary Care Provid er Encounter Details Date Type Department Care Team (Late st Contact Info) Description 01/05/2019 Procedure Pass [facility] [address] [place] [address] Social History Tobacco Use Types Packs/Day Years [...] on filedocumented in this encounter Care Teams Open Hearth Worker Relationship Specialty Start Date End Date Jerod Peace MD PCP - General 09/01/17 03/09/21 Mary Jean NP [address] [place] [address] PCP - General Family Medicine 03/10/21 documented as of this encounter Additional Source Comments The information contained in this document represents components of the legal health record. It is not the complete legal health record.[facility]
== END 2025-10-08 11:59 | disposition home or self-care (01) ==
LOC: HO.HPSW 10:44
PROVIDERS: PCP Nurse Practitioner Primary Care; Visit Provider Nurse Practitioner Family
DX: R94.2 Abnormal results of pulmonary function studies (principal); G47.33 Obstructive sleep apnea (adult) (pediatric); Z99.89 Dependence on other enabling machines and devices; R06.00 Dyspnea, unspecified
CPT/HCPCS: 99214; G2211

== ENCOUNTER → 2025-10-08 10:44 | Outpatient (BNVA) | payer MEDICARE, SELFPAY | PROVIDERS: PCP Nurse Practitioner Primary Care; Visit Provider Nurse Practitioner Family | DX: G47.33 Obstructive sleep apnea (adult) (pediatric) (principal); R94.2 Abnormal results of pulmonary function studies; R06.00 Dyspnea, unspecified; Z99.89 Dependence on other enabling machines and devices | CPT/HCPCS: 99212 ==